=== PATIENT | male | born 1945 | race Caucasian/White ===

== ENCOUNTER → 2018-07-05 09:46 | Outpatient (CLI) | payer MEDICARE, SELFPAY ==
[2018-07-05 10:45] LABS: Creatinine Urine Random 87.4 mg/dL
[2018-07-05 10:49] LABS: Microalbumi Creatinin Ratio Ur 6.8 ug/mg CR (<30); Microalbumin Urine Random < 0.6 mg/dL (0-1.6)
[2018-07-05 10:52] LABS: Add Manual Diff / Slide Review NO; Basophils Percent Auto 0.8 % (0-2); Eosinophils Percent Auto 3.9 % (2-4); Hematocrit 42.8 % (41-53); Hemoglobin 14.3 g/dL (13.5-17.5); Lymphocytes Percent Auto 9.6 % (25-40); Mean Corpuscular HGB Conc 33.4 % (30-36); Mean Corpuscular Hemoglobin 31.8 PG (26-34); Mean Corpuscular Volume 95.3 fL (80-100); Monocytes Percent Auto 9.1 % (3-14); Neutrophils Absolute Auto 6800 /uL (3000-5900); Neutrophils Percent Auto 76.6 % (50-75); Platelet Count 252 X10^3/uL (150-400); Red Cell Distribution Width 14.3 % (11.6-14.8); White Blood Cell Count 8.8 X10^3/uL (4.5-11.0)
[2018-07-05 11:12] LABS: Alanine Aminotransferase 31 IU/L (21-72); Albumin 4.3 g/dL (3.5-5.0); Albumin Globulin Ratio 1.6 (1.0-2.8); Alkaline Phosphatase 66 U/L (38-126); Aspartate Aminotransferase 36 IU/L (17-59); BUN Creatinine Ratio 15.8 (6-22); Bilirubin Total 0.8 mg/dL (0.2-1.3); Blood Urea Nitrogen 19 mg/dL (9-20); Calcium 9.9 mg/dL (8.4-10.2); Carbon Dioxide 35 mmol/L (22-32); Chloride 95 mmol/L (98-107); Estimated Glomerular Filt Rate 59.7 mL/min (>60); Globulin 2.7 g/dL (1.7-4.1); Glucose 151 mg/dL (80-110); HEMOLYSIS < 15 (0-50); Potassium 4.9 mmol/L (3.4-5.1); Sodium 138 mmol/L (137-145)
[2018-07-05 11:18] LABS: Hemoglobin A1C% w Est Avg Glu 8.3 % (4.0-6.0)
[2018-07-05 11:36] LABS: Thyroid Stimulating Hormone 0.26 uIU/mL (0.47-4.68)
== END ==
PROVIDERS: PCP Internal Medicine Endocrinology, Diabetes & Metabolism; Visit Provider Internal Medicine Endocrinology, Diabetes & Metabolism
DX: E11.9 Type 2 diabetes mellitus without complications (principal); E29.1 Testicular hypofunction
CPT/HCPCS: 36415; 80053; 82043; 82570; 83036; 84153; 84403; 84443; 85025

== ENCOUNTER → 2018-08-10 08:46 | Outpatient (CLI) | payer MEDICARE, SELFPAY ==
[2018-08-10 10:03] LABS: Cholesterol 189 mg/dL (140-199); HDL Cholesterol 87 mg/dL (40-60); LDL Cholesterol Calculated 80 mg/dL (<100); Triglycerides 109 mg/dL (35-150)
[2018-08-10 10:16] LABS: LDL Cholesterol Direct 70 mg/dL (<100)
== END ==
PROVIDERS: Family Provider Internal Medicine Endocrinology, Diabetes & Metabolism; PCP Internal Medicine Endocrinology, Diabetes & Metabolism; Visit Provider Internal Medicine
DX: Z00.00 Encounter for general adult medical examination without abnormal findings (principal); E10.9 Type 1 diabetes mellitus without complications
CPT/HCPCS: 36415; 80061; 83721

== ENCOUNTER → 2018-12-29 08:42 | Outpatient (CLI) | payer MEDICARE, SELFPAY ==
[2018-12-29 10:19] LABS: Alanine Aminotransferase 25 IU/L (21-72); Albumin 4.3 g/dL (3.5-5.0); Albumin Globulin Ratio 1.5 (1.0-2.8); Alkaline Phosphatase 54 U/L (38-126); Aspartate Aminotransferase 29 IU/L (17-59); BUN Creatinine Ratio 17.5 (6-22); Bilirubin Total 0.8 mg/dL (0.2-1.3); Blood Urea Nitrogen 21 mg/dL (9-20); Calcium 9.5 mg/dL (8.4-10.2); Carbon Dioxide 34 mmol/L (22-32); Chloride 95 mmol/L (98-107); Cholesterol 185 mg/dL (140-199); Estimated Glomerular Filt Rate 59.7 mL/min (>60); Globulin 2.9 g/dL (1.7-4.1); Glucose 145 mg/dL (80-110); HDL Cholesterol 80 mg/dL (40-60); HEMOLYSIS < 15 (0-50); LDL Cholesterol Calculated 89 mg/dL (<100); Potassium 4.2 mmol/L (3.4-5.1); Sodium 137 mmol/L (137-145); Total Protein 7.2 g/dL (6.3-8.2); Triglycerides 81 mg/dL (35-150)
[2018-12-29 10:47] LABS: Thyroid Stimulating Hormone 0.14 uIU/mL (0.47-4.68)
[2018-12-29 11:00] LABS: Hemoglobin A1C% w Est Avg Glu 8.5 % (4.0-6.0)
== END ==
PROVIDERS: PCP Internal Medicine Endocrinology, Diabetes & Metabolism
DX: E10.9 Type 1 diabetes mellitus without complications (principal)
CPT/HCPCS: 36415; 80053; 80061; 83036; 84443

== ENCOUNTER → 2019-03-23 08:40 | Outpatient (CLI) | payer MEDICARE, SELFPAY ==
--- NOTE | 2019-03-23 | DI.MRI.S_ITS ---
PROCEDURE: MR BRAIN (PITUITARY) WWO CON INDICATIONS: PITUITARY MACROADENOMA TECHNIQUE: Noncontrast sagittal and axial FLAIR, axial gradient echo, axial diffusion and ADC through the brain. Thin-slice sagittal and coronal T1 spin echo, coronal T2 fast spin echo through the pituitary. After the administration contrast, optional dynamic coronal T1 spin echo, thin-slice coronal and sagittal T1 spin echo images through the pituitary fossa; axial T1 spin echo with fat saturation through the brain. COMPARISON: No prior relevant studies are available for review at the time of this dictation. FINDINGS: Image quality: Excellent. Pituitary Gland: There is a heterogeneous mass, with heterogeneous enhancement seen along the right aspect of the sellar and suprasellar region, with mass effect upon the cavernous sinus. This mass measures approximately 1.6 cm craniocaudal by 1.3 cm transverse by 2.3 cm AP. The pituitary stalk is deviated to the left. The normal pituitary gland bright spot is not definitely seen. No mass effect seen upon the optic chiasm or the ventral forebrain. CSF Spaces: Ventricles are normal in size and shape. Basal cisterns are patent. No extra-axial fluid collections. Brain: No intracranial bleeds. No additional abnormal intracranial enhancement. Ibrahim-white matter interface is intact. Diffusion weighted images demonstrate no acute ischemic insults. Brainstem is normal. Normal intravascular flow voids are present. Skull and face: Calvarial marrow is normal in signal. Orbits appear normal. Sinuses: Sinuses and mastoids are clear. 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 There is mass effect upon the cavernous sinus, yet not upon the ventral forebrain or the optic chiasm. Dictated by: Ezra Mcnamara M.D. on 03/23/2019 at 9:36 Approved by: Ezra Mcnamara M.D. on 03/23/2019 at 9:42
== END ==
PROVIDERS: Family Provider Internal Medicine Endocrinology, Diabetes & Metabolism; PCP Internal Medicine Endocrinology, Diabetes & Metabolism
DX: D35.2 Benign neoplasm of pituitary gland (principal)
CPT/HCPCS: 70553; A9579

== ENCOUNTER → 2019-06-11 10:58 | Outpatient (CLI) | payer MEDICARE, SELFPAY ==
--- NOTE | 2019-06-11 11:00 | DI.RAD.S_ITS ---
PROCEDURE: XR HAND RT MIN 3V INDICATIONS: right hand pain TECHNIQUE: 3 views of the hand(s) acquired. COMPARISON: None. FINDINGS: Bones: No fractures or dislocations. Carpal bones are normally aligned. No suspicious bony lesions. 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 Severe degenerative arthritis at the thumb IP joint. Severe degenerative arthritis at the third DIP joint and fifth DIP joint. Soft tissues: No suspicious soft tissue calcifications. IMPRESSION: No evidence acute bony abnormality of the right hand. Degenerative arthritis as described above. Dictated by: Jean Yin M.D. on 06/11/2019 at 11:21 Approved by: Jean Yin M.D. on 06/11/2019 at 11:22
== END ==
PROVIDERS: PCP Internal Medicine Endocrinology, Diabetes & Metabolism; Visit Provider Physician Assistant
DX: M79.641 Pain in right hand (principal); M19.041 Primary osteoarthritis, right hand
CPT/HCPCS: 73130

== ENCOUNTER → 2020-03-24 14:58 | Outpatient (CLI) | payer MEDICARE, SELFPAY ==
[2020-03-24 17:40] LABS: Blood Urea Nitrogen 21 mg/dL (9-20); Calcium 9.1 mg/dL (8.4-10.2); Carbon Dioxide 29 mmol/L (22-32); Chloride 97 mmol/L (98-107); Estimated Glomerular Filt Rate > 60.0 mL/min (>60); Glucose 190 mg/dL (80-110); HEMOLYSIS < 15 (0-50); Potassium 4.2 mmol/L (3.4-5.1); Sodium 134 mmol/L (137-145)
[2020-03-24 17:59] LABS: Free T4, Direct Thyroxine 0.98 ng/dL (0.78-2.19)
[2020-03-24 18:13] LABS: Testosterone 186 ng/dL (71.8-623); Thyroid Stimulating Hormone 0.08 uIU/mL (0.47-4.68)
== END ==
PROVIDERS: PCP Internal Medicine Endocrinology, Diabetes & Metabolism; Referring Provider Internal Medicine Endocrinology, Diabetes & Metabolism; Visit Provider Internal Medicine Endocrinology, Diabetes & Metabolism
DX: E03.9 Hypothyroidism, unspecified (principal); E29.1 Testicular hypofunction
CPT/HCPCS: 36415; 80048; 84403; 84439; 84443

== ENCOUNTER → 2020-04-28 11:34 | Outpatient (CLI) | payer MEDICARE, SELFPAY ==
[2020-04-28 13:14] LABS: Add Manual Diff / Slide Review NO; Basophils Absolute Auto 100 /uL (0-100); Basophils Percent Auto 0.7 % (0-2); Eosinophils Absolute Auto 300 /uL (0-450); Eosinophils Percent Auto 3.6 % (2-4); Hematocrit 40.8 % (41-53); Lymphocytes Absolute Auto 600 /uL (1100-4500); Lymphocytes Percent Auto 7.9 % (25-40); Mean Corpuscular HGB Conc 34.4 % (30-36); Mean Corpuscular Hemoglobin 32.5 PG (26-34); Mean Corpuscular Volume 94.6 fL (80-100); Monocytes Absolute Auto 700 /uL (0-900); Monocytes Percent Auto 9.6 % (3-14); Neutrophils Absolute Auto 5500 /uL (1500-7000); Neutrophils Percent Auto 78.2 % (50-75); Platelet Count 251 X10^3/uL (150-400); Red Blood Cell Count 4.31 X10^6/uL (4.5-5.9); Red Cell Distribution Width 13.8 % (11.6-14.8)
[2020-04-28 14:25] LABS: BUN Creatinine Ratio 19.3 (6-22); Blood Urea Nitrogen 23 mg/dL (9-20); Carbon Dioxide 34 mmol/L (22-32); Chloride 97 mmol/L (98-107); Estimated Glomerular Filt Rate 59.9 mL/min (>60); Glucose 138 mg/dL (80-110); HEMOLYSIS < 15 (0-50); Potassium 4.3 mmol/L (3.4-5.1); Sodium 137 mmol/L (137-145)
[2020-04-28 14:39] LABS: Free T4, Direct Thyroxine 1.14 ng/dL (0.78-2.19)
[2020-04-28 14:54] LABS: Prostate Specific Antigen Scrn 0.602 ng/mL (0.1-4.0)
[2020-04-28 14:57] LABS: Testosterone 130 ng/dL (71.8-623)
== END ==
PROVIDERS: PCP Internal Medicine Endocrinology, Diabetes & Metabolism; Referring Provider Internal Medicine Endocrinology, Diabetes & Metabolism; Visit Provider Internal Medicine Endocrinology, Diabetes & Metabolism
DX: E10.9 Type 1 diabetes mellitus without complications (principal); Z12.5 Encounter for screening for malignant neoplasm of prostate
CPT/HCPCS: 36415; 80048; 83036; 84403; 84439; 84443; 85025; G0103

== ENCOUNTER 2020-05-16 14:42 | Emergency (ER) | payer MEDICARE, SELFPAY ==
[2020-05-16 14:46] VITALS: PULSE 77; RESP 16; O2SAT 98; BMI 23.0
--- NOTE | 2020-05-16 15:02 | DI.RAD.S_ITS ---
PROCEDURE: XR ABDOMEN MIN 2V INDICATIONS: constipation TECHNIQUE: 2 views of the abdomen were acquired. COMPARISON: None. FINDINGS: Surgical changes and devices: None. Bowel: No pneumoperitoneum. The bowel gas pattern is normal. There is a moderate amount of stool seen within the colon. Soft tissues: No masses; visualized solid organ contours appear normal in size. No suspicious abdominal calcifications. Bones: No suspicious bony abnormalities. Age-appropriate bony degenerative changes are seen. Mild dextroconvex scoliotic curvature is seen. IMPRESSION: There is a moderate amount of stool seen within the colon, which is consistent with the given clinical history of constipation. Dictated by: Ezra Mcnamara M.D. on 05/16/2020 at 14:48 Approved by: Ezra Mcnamara M.D. on 05/16/2020 at 14:48
[2020-05-16 17:42] VITALS: BP 182/87; PULSE 61; RESP 18; TEMP 36.8; O2SAT 100
[2020-05-16 18:42] LABS: Alanine Aminotransferase 21 IU/L (<50); Albumin 4.3 g/dL (3.5-5.0); Albumin Globulin Ratio 1.5 (1.0-2.8); Alkaline Phosphatase 107 U/L (38-126); Aspartate Aminotransferase 54 IU/L (17-59); BUN Creatinine Ratio 19.5 (6-22); Bilirubin Total 0.6 mg/dL (0.2-1.3); Blood Urea Nitrogen 22 mg/dL (9-20); Calcium 9.3 mg/dL (8.4-10.2); Carbon Dioxide 32 mmol/L (22-32); Chloride 94 mmol/L (98-107); Estimated Glomerular Filt Rate > 60.0 mL/min (>60); Globulin 2.9 g/dL (1.7-4.1); Glucose 208 mg/dL (80-110); HEMOLYSIS 18 (0-50); Lipase 224 U/L (23-300); Potassium 4.9 mmol/L (3.4-5.1); Sodium 131 mmol/L (137-145); Total Protein 7.2 g/dL (6.3-8.2)
[2020-05-16 18:50] LABS: Add Manual Diff / Slide Review NO; Basophils Absolute Auto 0 /uL (0-100); Basophils Percent Auto 0.6 % (0-2); Eosinophils Absolute Auto 100 /uL (0-450); Eosinophils Percent Auto 1.5 % (2-4); Hematocrit 41.6 % (41-53); Hemoglobin 14.1 g/dL (13.5-17.5); Lymphocytes Absolute Auto 900 /uL (1100-4500); Lymphocytes Percent Auto 12.4 % (25-40); Mean Corpuscular Hemoglobin 32.1 PG (26-34); Mean Corpuscular Volume 94.4 fL (80-100); Monocytes Absolute Auto 600 /uL (0-900); Neutrophils Absolute Auto 5700 /uL (1500-7000); Neutrophils Percent Auto 77.5 % (50-75); Platelet Count 297 X10^3/uL (150-400); Red Cell Distribution Width 13.5 % (11.6-14.8); White Blood Cell Count 7.4 X10^3/uL (4.5-11.0)
[2020-05-16 18:56] VITALS: BP 191/87; PULSE 61; RESP 14; O2SAT 97
--- NOTE | 2020-05-16 19:29 | ED.ABDPAIN ---
HPI - Abdominal Pain <LAURO Stephens - Last Filed: 05/16/20 19:34> General Chief Complaint: Abdominal Pain Stated Complaint: 10 DAYS CONSTIPATION Time Seen by Provider: 05/16/20 18:25 Source: patient Mode of arrival: Ambulatory Limitations: no limitations History of Present Illness HPI narrative: The patient is a 75-year-old male nonsmoker with history of type 1 diabetes and hyponatremia who presents with his for chief complaint of no bowel movement for the past 10 days. He states he fell 2 weeks ago when he tripped and has some lower back pain. He has tried multiple laxatives, including magnesium citrate last night and this morning. Since his fall, he denies any incontinence bowel, incontinence of bladder or numbness in his groin. He states he has to be cautious with the amount of liquid that he drinks because of his hyponatremia. Related Data Home Medications Medication Instructions Recorded Confirmed MULTIVITAMIN (Multivitamin 1 cap PO EVERY DAY #0 12/11/06 06/11/19 -) TESTOSTERONE ENANTHATE 0.5 cc IM EVERY 2 WKS #0 11/01/12 06/11/19 (DELATESTRYL) VITAMIN D (Vitamin D3) 1,000 unit PO QDAY #0 11/01/12 06/11/19 insulin glargine [Lantus U-100 0 unit SQ BID #0 ml 11/01/12 06/11/19 Insulin] insulin lispro [Humalog U-100 #0 11/01/12 06/11/19 Insulin] lamotrigine [Lamictal] 200 mg PO BID #0 11/01/12 06/11/19 LEVOTHYROXINE SODIUM 25 mcg PO QDAY #0 06/11/19 06/11/19 atorvastatin 20 mg tablet 20 mg PO DAILY 06/11/19 06/11/19 Allergies Allergy/AdvReac Type Severity Reaction Status Date / Time No Known Drug Allergies Allergy Verified 05/16/20 14:46 Review of Systems <LAURO Stephens - Last Filed: 05/16/20 19:34> Review of Systems Narrative: GENERAL: Denies chills, fatigue, malaise, fever, sweats. HEENT: Denies sinus pain, ear pain, sore throat, difficulty swallowing, dizziness. RESPIRATORY: Denies dyspnea, cough, wheezing, hemoptysis, sputum. CARDIOVASCULAR: Denies chest pain, palpitations, orthopnea, edema, GASTROINTESTINAL: See HPI : Denies dysuria, frequency, incontinence, hematuria, urinary retention. MUSCULOSKELETAL: denies weakness, joint pain, or bony pain SKIN: Denies rash, skin lesions, or other NEUROLOGIC: Denies weakness, headache, numbness, change in speech, confusion, seizures, incoordination. PSYCHIATRIC: No concerning psychosocial issues. 12 point review of systems is negative except for those stated above Patient History <LAURO Stephens - Last Filed: 05/16/20 19:34> Medical History (Updated 05/16/20 @ 19:22 by LAURO Stephens) Acute low back pain (Acute) Exam <LAURO Stephens - Last Filed: 05/16/20 19:34> Narrative Exam Narrative: GENERAL: This is a well-nourished, well-developed patient, no acute distress HEAD: Atraumatic. Normocephalic. No temporal or scalp tenderness. EYES: Pupils equal round and reactive. Extraocular motions intact. No scleral icterus. No injection or drainage. ENT: Nose without bleeding, purulent drainage or septal hematoma.. Airway patent. NECK: Trachea midline. No JVD or lymphadenopathy. Supple, nontender, no meningeal signs. CARDIOVASCULAR: Regular rate and rhythm RESPIRATORY: Clear to auscultation. Breath sounds equal bilaterally. No wheezes, rales, or rhonchi. No cough. No increased respiratory effort. No accessory muscle use. GASTROINTESTINAL: Abdomen soft, non-tender, nondistended. No hepato-splenomegaly, or palpable masses. No guarding. EXTREMITIES: No clubbing, cyanosis, or edema. No joint tenderness, effusion, or edema noted. BACK: Nontender without deformity or crepitance. No flank tenderness. No pain to CT or L-spine palpation. NEURO: AOx3. Stable gait. Sensation intact bilateral lower extremities. No gross cranial nerve deficit. SKIN: No rash or erythema. Initial Vital Signs Initial Vital Signs: Vital Signs Pulse Rate 77 05/16/20 14:46 Respiratory Rate 16 05/16/20 14:46 Pulse Oximetry 98 05/16/20 14:46 <Roderick Carter DO - Last Filed: 05/17/20 05:23> Initial Vital Signs Initial Vital Signs: Vital Signs Pulse Rate 77 05/16/20 14:46 Respiratory Rate 16 05/16/20 14:46 Pulse Oximetry 98 05/16/20 14:46 Scores <BOBY Stephens - Last Filed: 05/16/20 19:34> GCS Parker coma scale eye opening: Spontaneous Parker coma scale verbal response: Orientated Parker coma scale motor response: Obey commands [place] coma scale total score: 15 Course <BOBY Stephens - Last Filed: 05/16/20 19:34> Orders Ordered: ED Orders 05/16/20 15:02 XR abdomen min 2V Stat 05/16/20 17:30 Complete Blood Count AUTO DIFF Stat Comprehensive Metabolic Panel Stat Lipase Stat Vital Signs Vital signs: Vital Signs - 8 hr 05/16/20 14:46 05/16/20 17:42 05/16/20 18:56 Temperature 98.3 F Pulse Rate 77 61 61 Respiratory Rate 16 18 14 Blood Pressure [Left Arm] 182/87 H 191/87 H Pulse Oximetry 98 100 97 <Roderick Carter DO - Last Filed: 05/17/20 05:23> Orders Ordered: ED Orders 05/16/20 15:02 XR abdomen min 2V Stat 05/16/20 17:30 Complete Blood Count AUTO DIFF Stat Comprehensive Metabolic Panel Stat Lipase Stat Vital Signs Vital signs: Vital Signs - 8 hr 05/16/20 14:46 05/16/20 17:42 05/16/20 18:56 Temperature 98.3 F Pulse Rate 77 61 61 Respiratory Rate 16 18 14 Blood Pressure [Left Arm] 182/87 H 191/87 H Pulse Oximetry 98 100 97 MDM - Abdominal Pain <BOBY Stephens - Last Filed: 05/16/20 19:34> Lab Data Attestation: I reviewed the patient's lab results. Result diagrams: 05/16/20 17:30 05/16/20 17:30 Labs: Lab Results 05/16/20 05/16/20 Range/Units 17:30 17:30 WBC 7.4 (4.5-11.0) X10^3/uL RBC 4.40 L (4.5-5.9) X10^6/uL Hgb 14.1 (13.5-17.5) g/dL Hct 41.6 (41-53) % MCV 94.4 (80-100) fL MCH 32.1 (26-34) PG MCHC 34.0 (30-36) % RDW 13.5 (11.6-14.8) % Plt Count 297 (150-400) X10^3/uL Neut % (Auto) 77.5 H (50-75) % Lymph % (Auto) 12.4 L (25-40) % [place] % (Auto) 8.0 (3-14) % Eos % (Auto) 1.5 L (2-4) % Baso % (Auto) 0.6 (0-2) % Neut # (Auto) 5700 (7886-9205) /uL Lymph # (Auto) 900 L (5475-9909) /uL [place] # (Auto) 600 (0-900) /uL Eos # (Auto) 100 (0-450) /uL Baso # (Auto) 0 (0-100) /uL Sodium 131 L (137-145) mmol/L Potassium 4.9 (3.4-5.1) mmol/L Chloride 94 L (98-107) mmol/L Carbon Dioxide 32 (22-32) mmol/L BUN 22 H (9-20) mg/dL Creatinine 1.13 (0.66-1.25) mg/dL Estimated GFR > 60.0 (>60) mL/min BUN/Creatinine Ratio 19.5 (6-22) Glucose 208 H (80-110) mg/dL Calcium 9.3 (8.4-10.2) mg/dL Total Bilirubin 0.6 (0.2-1.3) mg/dL AST 54 (17-59) IU/L ALT 21 (<50) IU/L Alkaline Phosphatase 107 (38-126) U/L Total Protein 7.2 (6.3-8.2) g/dL Albumin 4.3 (3.5-5.0) g/dL Globulin 2.9 (1.7-4.1) g/dL Albumin/Globulin Ratio 1.5 (1.0-2.8) Lipase 224 (23-300) U/L Point of care testing: Urine Dip Bedside Urine Glucose Negative Bedside Urine Bilirubin - Negative Bedside Urine Ketone - Negative Urine Specific [place] 1.010 Bedside Urine Occult Blood - Negative Bedside Urine pH 7.5 Bedside Urine Protein - Negative Bedside Urine Urobilinogen - Negative Bedside Urine Nitrite - Negative Bedside Urine Leukocytes - Negative Esterase Imaging Data Abdominal x-ray: Radiologist's Impression: [address] [place] [id number] XRay Report Signed Patient: Javi Flores RMR#: [id number] : 7Acct:[id number] Age/Sex: 75 / MDate of Service: 05/16/20 Loc: ED Accession Number: [id number] Procedure: XR abdomen min 2V Ordering Provider: Javi Sherwood MD PROCEDURE: XR ABDOMEN MIN 2V INDICATIONS: constipation TECHNIQUE: 2 views of the abdomen were acquired. COMPARISON: None. FINDINGS: Surgical changes and devices: None. Bowel: No pneumoperitoneum. The bowel gas pattern is normal. There is a moderate amount of stool seen within the colon. Soft tissues: No masses; visualized solid organ contours appear normal in size. No suspicious abdominal calcifications. Bones: No suspicious bony abnormalities. Age-appropriate bony degenerative changes are seen. Mild dextroconvex scoliotic curvature is seen. IMPRESSION: There is a moderate amount of stool seen within the colon, which is consistent with the given clinical history of constipation. Dictated by: Ezra Mcnamara M.D. on 05/16/2020 at 14:48 Approved by: Ezra Mcnamara M.D. on 05/16/2020 at 14:48 [facility] Narrative Medical decision making narrative: The patient is a 75-year-old male who presents with a chief complaint of no bowel movement for the past 10 days. Appears nontoxic, is not nauseous or vomiting. He has 4 bowel movements in the emergency department today. Lab work is grossly normal for the patient, sodium is 131, but that appears to be normal for him and he has no hyponatremia symptoms. I discussed at length the importance of following up with primary care provider in the next few days, coming back to the emergency department for any acute concerns. The patient declined any imaging of his back today, but we discussed coming back to the emergency department for any incontinence bowel, incontinence of bladder or saddle anesthesia. Patient have no questions or concerns upon discharge and state understanding of return precautions and follow-up care. <Roderick Carter DO - Last Filed: 05/17/20 05:23> Lab Data Labs: Lab Results 05/16/20 05/16/20 Range/Units 17:30 17:30 WBC 7.4 (4.5-11.0) X10^3/uL RBC 4.40 L (4.5-5.9) X10^6/uL Hgb 14.1 (13.5-17.5) g/dL Hct 41.6 (41-53) % MCV 94.4 (80-100) fL MCH 32.1 (26-34) PG MCHC 34.0 (30-36) % RDW 13.5 (11.6-14.8) % Plt Count 297 (150-400) X10^3/uL Neut % (Auto) 77.5 H (50-75) % Lymph % (Auto) 12.4 L (25-40) % [place] % (Auto) 8.0 (3-14) % Eos % (Auto) 1.5 L (2-4) % Baso % (Auto) 0.6 (0-2) % Neut # (Auto) 5700 (8034-5559) /uL Lymph # (Auto) 900 L (4897-9276) /uL [place] # (Auto) 600 (0-900) /uL Eos # (Auto) 100 (0-450) /uL Baso # (Auto) 0 (0-100) /uL Sodium 131 L (137-145) mmol/L Potassium 4.9 (3.4-5.1) mmol/L Chloride 94 L (98-107) mmol/L Carbon Dioxide 32 (22-32) mmol/L BUN 22 H (9-20) mg/dL Creatinine 1.13 (0.66-1.25) mg/dL Estimated GFR > 60.0 (>60) mL/min BUN/Creatinine Ratio 19.5 (6-22) Glucose 208 H (80-110) mg/dL Calcium 9.3 (8.4-10.2) mg/dL Total Bilirubin 0.6 (0.2-1.3) mg/dL AST 54 (17-59) IU/L ALT 21 (<50) IU/L Alkaline Phosphatase 107 (38-126) U/L Total Protein 7.2 (6.3-8.2) g/dL Albumin 4.3 (3.5-5.0) g/dL Globulin 2.9 (1.7-4.1) g/dL Albumin/Globulin Ratio 1.5 (1.0-2.8) Lipase 224 (23-300) U/L Point of care testing: Urine Dip Bedside Urine Glucose Negative Bedside Urine Bilirubin - Negative Bedside Urine Ketone - Negative Urine Specific [employer] 1.010 Bedside Urine Occult Blood - Negative Bedside Urine pH 7.5 Bedside Urine Protein - Negative Bedside Urine Urobilinogen - Negative Bedside Urine Nitrite - Negative Bedside Urine Leukocytes - Negative Esterase Discharge Plan Departure Patient Disposition: Home Clinical Impression: Hyponatremia Constipation Qualifiers: Constipation type: unspecified constipation type Qualified Code(s): K59.00 - Constipation, unspecified Discharge Date/Time: 05/16/20 19:36 Instructions: DI for Constipation Activity Restrictions/Additional Instructions: Thank you for trusting us with your care today Your sodium level today is 131 You came in today for constipation, and had 4 bowel movements in the emergency department today Please follow-up with primary care provider. Please be sure to hold off on any laxatives for the time being. Please follow-up with primary care provider in the next few days. Please come back to the emergency department for any acute concerns Prescriptions: No Action atorvastatin 20 mg tablet 20 mg PO DAILY RF: 0 MULTIVITAMIN (Multivitamin -) 1 cap PO EVERY DAY Qty: 0 RF: 0 VITAMIN D (Vitamin D3) 1,000 unit PO QDAY Qty: 0 RF: 0 lamotrigine [Lamictal] 200 MG tablet 200 mg PO BID Qty: 0 RF: 0 insulin glargine [Lantus U-100 Insulin] 100 UNIT/1 ML solution 0 unit SQ BID Qty: 0 RF: 0 insulin lispro [Humalog U-100 Insulin] 100 UNIT/1 ML cartridge Qty: 0 RF: 0 TESTOSTERONE ENANTHATE (DELATESTRYL) 0.5 cc IM EVERY 2 WKS Qty: 0 RF: 0 LEVOTHYROXINE SODIUM 25 mcg PO QDAY Qty: 0 RF: 0 Referrals: Lady Dickerson MD [Primary Care Provider] - Radha Perez MD [Physician] - <Roderick Carter DO - Last Filed: 05/17/20 05:23> Cosign ED Attending Cosignature Attestation: I was immediately available in the department for consultation. This documentation has been reviewed and I agree with assessment and plan. Supervised by Roderick Carter, DO
== END 2020-05-16 19:36 | disposition home or self-care (01) ==
PROVIDERS: Emergency Medicine; Emergency Provider Nurse Practitioner Family; PCP Internal Medicine Endocrinology, Diabetes & Metabolism
DX: K59.00 Constipation, unspecified (principal); E87.1 Hypo-osmolality and hyponatremia
CPT/HCPCS: 36415; 74019; 80053; 81003; 83690; 85025; 99284

== ENCOUNTER → 2020-05-19 14:14 | Outpatient (CLI) | payer MEDICARE, SELFPAY ==
--- NOTE | 2020-05-19 14:16 | DI.RAD.S_ITS ---
PROCEDURE: XR LUMBAR SPINE MIN 4V INDICATIONS: LOW BACK PAIN TECHNIQUE: 4 views of the lumbar spine were acquired. COMPARISON: None. FINDINGS: Bones: 5 nonrib-bearing vertebrae are present. There is normal bony alignment. No acute vertebral body compression fractures. Old mild to moderate L1 compression. No suspicious bony lesions. Soft tissues: Overlying bowel gas pattern is normal. No suspicious soft tissue calcifications. Oblique images: No pars defects. Lower lumbar facet arthropathy. IMPRESSION: Old L1 compression fracture. Lower lumbar facet arthropathy. No evidence acute bony abnormality of the lumbar spine. If clinical suspicion and/or symptoms persist, further assessment with repeat plain films, or advanced imaging (e.g., CT, MRI, or bone scan) may be helpful for further assessment. Dictated by: Jean Yin M.D. on 05/19/2020 at 15:11 Approved by: Jean Yin M.D. on 05/19/2020 at 15:12
== END ==
PROVIDERS: PCP Internal Medicine Endocrinology, Diabetes & Metabolism; Referring Provider Physical Medicine & Rehabilitation; Visit Provider Physical Medicine & Rehabilitation
DX: M54.5 Low back pain (principal); M47.816 Spondylosis without myelopathy or radiculopathy, lumbar region; M43.06 Spondylolysis, lumbar region; S32.010A Wedge compression fracture of first lumbar vertebra, initial encounter for closed fracture; K59.00 Constipation, unspecified
CPT/HCPCS: 72110; 99213

== ENCOUNTER → 2020-08-01 13:16 | Outpatient (CLI) | payer MEDICARE, SELFPAY ==
[2020-08-01 14:17] LABS: Hemoglobin A1C% w Est Avg Glu 8.1 % (4.0-6.0)
[2020-08-01 15:15] LABS: Free T4, Direct Thyroxine 1.24 ng/dL (0.78-2.19)
[2020-08-01 15:28] LABS: Thyroid Stimulating Hormone 0.067 uIU/mL (0.47-4.68)
[2020-08-01 15:29] LABS: Prostate Specific Antigen Scrn 0.842 ng/mL (0.1-4.0)
[2020-08-01 15:32] LABS: Testosterone 40.5 ng/dL (71.8-623)
== END ==
PROVIDERS: PCP Internal Medicine Endocrinology, Diabetes & Metabolism; Referring Provider Internal Medicine Endocrinology, Diabetes & Metabolism; Visit Provider Internal Medicine Endocrinology, Diabetes & Metabolism
DX: E10.9 Type 1 diabetes mellitus without complications (principal); Z12.5 Encounter for screening for malignant neoplasm of prostate
CPT/HCPCS: 36415; 83036; 84403; 84439; 84443; G0103

== ENCOUNTER → 2020-08-27 16:39 | Outpatient (CLI) | payer MEDICARE, SELFPAY ==
[2020-08-27 18:06] LABS: Hemoglobin A1C% w Est Avg Glu 8.4 % (4.0-6.0)
[2020-08-27 18:34] LABS: Free T4, Direct Thyroxine 1.65 ng/dL (0.78-2.19)
[2020-08-27 18:48] LABS: Thyroid Stimulating Hormone 0.021 uIU/mL (0.47-4.68)
== END ==
PROVIDERS: PCP Internal Medicine Endocrinology, Diabetes & Metabolism; Referring Provider Internal Medicine Endocrinology, Diabetes & Metabolism; Visit Provider Internal Medicine Endocrinology, Diabetes & Metabolism
DX: E03.9 Hypothyroidism, unspecified (principal); E10.65 Type 1 diabetes mellitus with hyperglycemia
CPT/HCPCS: 36415; 83036; 84439; 84443

== ENCOUNTER → 2020-10-31 10:06 | Outpatient (CLI) | payer MEDICARE, SELFPAY ==
[2020-10-31 12:11] LABS: Add Manual Diff / Slide Review NO; Basophils Absolute Auto 100 /uL (0-100); Eosinophils Absolute Auto 600 /uL (0-450); Eosinophils Percent Auto 7.9 % (2-4); Hematocrit 39.7 % (41-53); Hemoglobin 13.2 g/dL (13.5-17.5); Lymphocytes Absolute Auto 900 /uL (1100-4500); Lymphocytes Percent Auto 12.1 % (25-40); Mean Corpuscular HGB Conc 33.1 % (30-36); Mean Corpuscular Hemoglobin 30.8 PG (26-34); Monocytes Absolute Auto 700 /uL (0-900); Monocytes Percent Auto 8.8 % (3-14); Neutrophils Absolute Auto 5300 /uL (1500-7000); Neutrophils Percent Auto 70.2 % (50-75); Platelet Count 263 X10^3/uL (150-400); Red Blood Cell Count 4.27 X10^6/uL (4.5-5.9); Red Cell Distribution Width 13.4 % (11.6-14.8); White Blood Cell Count 7.6 X10^3/uL (4.5-11.0)
[2020-10-31 13:02] LABS: Free T4, Direct Thyroxine 1.76 ng/dL (0.78-2.19)
[2020-10-31 13:06] LABS: Prostate Specific Antigen Scrn 0.717 ng/mL (0.1-4.0)
[2020-10-31 13:08] LABS: Testosterone 346 ng/dL (71.8-623)
[2020-10-31 13:29] LABS: Thyroid Stimulating Hormone < 0.015 uIU/mL (0.47-4.68)
== END ==
PROVIDERS: PCP Family Medicine; Referring Provider Internal Medicine Endocrinology, Diabetes & Metabolism; Visit Provider Internal Medicine Endocrinology, Diabetes & Metabolism
DX: E10.9 Type 1 diabetes mellitus without complications (principal); Z12.5 Encounter for screening for malignant neoplasm of prostate
CPT/HCPCS: 36415; 83036; 84403; 84439; 84443; 85025; G0103

== ENCOUNTER → 2020-12-05 09:29 | Outpatient (CLI) | payer MEDICARE, SELFPAY ==
[2020-12-05 11:21] LABS: COVID19 -Nasal RAPID Negative (Negative)
== END ==
PROVIDERS: PCP Family Medicine; Visit Provider Surgery
DX: Z01.812 Encounter for preprocedural laboratory examination (principal); Z20.822 Contact with and (suspected) exposure to COVID-19
CPT/HCPCS: 87635; C9803

== ENCOUNTER 2020-12-08 06:43 | Day surgery (SDC) | payer MEDICARE, SELFPAY ==
[2020-12-08] VITALS (10 sets, daily range): BP systolic 87–132; BP diastolic 44–76; PULSE 57–78; RESP 8–17; TEMP 36–37.1; O2SAT 96–98; BMI 22.4
--- NOTE | 2020-12-08 07:52 | PM.HP.1 ---
History of Present Illness History of Present Illness Date Patient Seen: 12/08/20 Time Patient Seen: 07:52 Chief complaint: SCREENING COLONOSCOPY Narrative: The patient presents for colorectal sreening. He had a previously normal colonoscopy 11 years ago. No personal or family history of colon cancer. On further history denies any recent gastrointestinal symptoms. No nausea, vomiting, abdominal pain, loss of appetite, unexplained weight loss, change in bowel habits, diarrhea, constipation, melena, hematochezia, or bright red blood per rectum. Patient History Medical History Acute low back pain Compression fracture of L1 lumbar vertebra DM type 1 (diabetes mellitus, type 1) Epilepsy Facet arthropathy, lumbar Hx of benign neoplasm of pituitary gland Hypothyroidism Lumbar pars defect Surgical History H/O shoulder replacement History of surgical removal of pituitary gland Family & Social History Family History Unknown No pertinent family history Social History: household members spouse Tobacco & Substance use: Smoking Status Never smoker alcohol intake current alcohol intake frequency 0-2 drinks per day Substance Use Type does not use Meds Home Medications and Allergies Home Medications Medication Instructions Recorded Confirmed Type MULTIVITAMIN (Multivitamin 1 cap PO EVERY DAY #0 12/11/06 12/08/20 History -) Humalog U-100 Insulin #0 11/01/12 05/19/20 History Lantus U-100 Insulin 0 unit SQ BID #0 ml 11/01/12 12/08/20 History TESTOSTERONE ENANTHATE 0.5 cc IM EVERY 2 WKS #0 11/01/12 12/08/20 History (DELATESTRYL) VITAMIN D (Vitamin D3) 1,000 unit PO QDAY #0 11/01/12 12/08/20 History LEVOTHYROXINE SODIUM 25 mcg PO QDAY #0 06/11/19 12/08/20 History atorvastatin 20 mg tablet 20 mg PO DAILY 06/11/19 12/08/20 History lamotrigine 200 mg tablet 350 mg PO DAILY #0 tab 05/19/20 12/08/20 History prednisone 1 mg tablet 4 mg PO DAILY tab 05/19/20 12/08/20 History sodium,potassium,mag sulfates 17.5 177 ml PO DAILY #354 ml 12/02/20 12/08/20 Rx gram-3.13 gram-1.6 gram oral soln Allergies Allergy/AdvReac Type Severity Reaction Status Date / Time No Known Drug Allergies Allergy Verified 12/08/20 07:20 Review of Systems Review of Systems Narrative: A 10 point review of systems is negative except as noted in the HPI Exam Narrative Exam Narrative: General-no acute distress, well nourished adult male HEENT-moist mucous membranes, no scleral icterus Neck-supple, no lymphadenopathy Chest- non labored respirations, clear to auscultation bilaterally Cardiac-regular rate no peripheral edema Abdomen-soft, nontender, non distended Extremities-warm, well perfused Neurological-alert and oriented, no focal deficits Assessment & Plan Assessment and plan (1) Screening for colon cancer: Status: Acute Assessment & Plan narrative: The patient requires colorectal screening and colonoscopy is recommended. Technical details were discussed. Risks, benefits, alternatives explained. Risks including but not limited to myocardial infarction, aspiration, bleeding, pain, missed lesion, incomplete examination, need for further radiographic studies, colonic perforation, and need for major abdominal surgery were discussed. All questions were answered to their satisfaction, and they are in agreement with this plan.
[2020-12-08] MEDS: LACTATED RINGERS 1,000 ML 200 ML IV (07:53)
[2020-12-08] MEDS: MIDAZOLAM 5 MG/5 ML VIAL IV (08:12)
[2020-12-08] MEDS: fentaNYL 250 MCG/5 ML INJ IV (08:12)
--- NOTE | 2020-12-08 08:24 | P.OP.ENDO_ITS ---
Operative Date/Time/Diagnoses Date of procedure: 12/08/20 Time of procedure: 08:24 Pre-op diagnosis: Screening colonoscopy Post-op diagnosis: same Procedure & Clinicians Study performed: Screening colonoscopy Same procedure as scheduled: Yes Indications: 75-year-old man last colonoscopy 11 years ago presents for routine screening Surgeon: Anibal Jones Procedure Notes Procedure in detail: Medications: Conscious sedation using 5mg IV midazolam and 150mcg IV of fentanyl The history and physical was performed/updated and the patient is ASA class is 2. The procedure was discussed in detail with the patient. Potential risks complications including infection, bleeding, missed diagnosis, perforation, need for surgery, and were explained. Their questions were answered and informed consent was obtained. Patient was brought to the procedure room and placed standard monitoring equipment. The patient's vital signs were monitored continuously throughout the entire procedure. Prior to starting time-out was performed. The patient was placed in the left lateral recumbent position. Procedural sedation was administered. Examination began with a thorough inspection of the perianal area there was no evidence of fissures, fistulae, external hemorrhoids or cutaneous malignancy. The colonoscopy scope was then placed into the anal canal and was advanced to the cecum, which was identified by the ileocecal valve, the appendic eal orifice and the confluence of the taenia. The scope was then slowly withdrawn examining colon thoroughly in all directions, irrigating it of any residual stool. Extensive sigmoid diverticulosis No masses or polyps The patient tolerated the procedure well. They will be discharged once criteria are met. The prep was of good/excellent quality. The withdrawl time was 7 minutes. The sedation time was 20 minutes. Specimen(s): none sent Complications: none Impression: Diverticulosis Post-procedure Recommendations: Colonscopy in 10 years Disposition: same day surgery
--- NOTE | 2020-12-08 08:52 | SUR.PHASEI ---
Aroused easily to voice, denies pain/nausea. HOB elevated, fluids given. BP lower than upon admit - asymptomatic.
--- NOTE | 2020-12-08 09:22 | SUR.PHASEII ---
Approx 0918 Patient was dressing; had declined any assistance. (He had denied dizziness or light-headedness at least twice prior to dressing). He lost his balance and fell, FIRE WARDEN was the first to his aid and saw him on his right hip/buttock area. Pt denied having any pain r/t fall (or otherwise). FIRE WARDEN stayed at bedside and assisted the patient with dressing. Transferred into wheelchair independently with FIRE WARDEN standby. Dr. Jones informed. is here in the waiting area; informed her of his fall. She stated I was afraid of that.' Asked her if he is often unsteady and she stated that he is and that she was concerned because he hadn't eaten in over 24 hours. (Blood glucose 118 prior to fall). 0922 Patient expressed appreciation for care upon discharge.
== END 2020-12-08 09:22 | disposition home or self-care (01) ==
PROVIDERS: PCP Family Medicine; Referring Provider Family Medicine; Visit Provider Surgery
PROC: 0DJD8ZZ Inspection of Lower Intestinal Tract, Via Natural or Artificial Opening Endoscopic (ICD-10-PCS; CPT 45378; principal; 2020-12-08 07:45)
DX: Z12.11 Encounter for screening for malignant neoplasm of colon (principal); E10.9 Type 1 diabetes mellitus without complications; Z79.4 Long term (current) use of insulin; K57.30 Diverticulosis of large intestine without perforation or abscess without bleeding
CPT/HCPCS: G0121; 99152; J2250; J3010

== ENCOUNTER → 2020-12-23 16:41 | Outpatient (CLI) | payer MEDICARE, SELFPAY ==
[2020-12-23] MEDS: COVID-19 VACC #1, MRNA(MOD) 100 MCG/0.5 ML VIAL IM (16:43)
== END ==
PROVIDERS: PCP Family Medicine; Visit Provider Internal Medicine
DX: Z23 Encounter for immunization (principal)
CPT/HCPCS: 0011A; 91301

== ENCOUNTER → 2021-01-21 12:54 | Outpatient (CLI) | payer MEDICARE, SELFPAY ==
[2021-01-21] MEDS: COVID-19 VACC #2, MRNA(MOD) 100 MCG/0.5 ML VIAL IM (13:03)
== END ==
PROVIDERS: PCP Family Medicine; Visit Provider Internal Medicine
DX: Z23 Encounter for immunization (principal)
CPT/HCPCS: 0012A; 91301

== ENCOUNTER → 2021-02-02 10:15 | Outpatient (CLI) | payer MEDICARE, SELFPAY ==
[2021-02-02 10:59] LABS: Hemoglobin A1C% w Est Avg Glu 7.9 % (4.0-6.0)
== END ==
PROVIDERS: PCP Family Medicine; Referring Provider Internal Medicine Endocrinology, Diabetes & Metabolism; Visit Provider Internal Medicine Endocrinology, Diabetes & Metabolism
DX: R73.09 Other abnormal glucose (principal)
CPT/HCPCS: 36415; 83036

== ENCOUNTER → 2021-04-14 08:01 | Outpatient (CLI) | payer MEDICARE, SELFPAY ==
[2021-04-14 09:08] LABS: Hemoglobin A1C% w Est Avg Glu 7.5 % (4.0-6.0)
[2021-04-14 09:23] LABS: Alanine Aminotransferase 20 IU/L (<50); Albumin 4.1 g/dL (3.5-5.0); Albumin Globulin Ratio 1.5 (1.0-2.8); Alkaline Phosphatase 56 U/L (38-126); Aspartate Aminotransferase 28 IU/L (17-59); BUN Creatinine Ratio 16.8 (6-22); Bilirubin Total 0.6 mg/dL (0.2-1.3); Blood Urea Nitrogen 18 mg/dL (9-20); Calcium 9.9 mg/dL (8.4-10.2); Carbon Dioxide 34 mmol/L (22-32); Chloride 99 mmol/L (98-107); Cholesterol 174 mg/dL (140-199); Estimated Glomerular Filt Rate > 60.0 mL/min (>60); Globulin 2.8 g/dL (1.7-4.1); Glucose 137 mg/dL (80-110); HDL Cholesterol 82 mg/dL (40-60); HEMOLYSIS < 15 (0-50); LDL Cholesterol Calculated 83 mg/dL (<100); Potassium 4.6 mmol/L (3.4-5.1); Sodium 137 mmol/L (137-145); Total Protein 6.9 g/dL (6.3-8.2); Triglycerides 47 mg/dL (35-150); VLDL Cholesterol Calculated 9 mg/dL (2-30)
[2021-04-14 10:38] LABS: Thyroid Stimulating Hormone < 0.015 uIU/mL (0.47-4.68)
[2021-04-14 11:38] LABS: Creatinine Urine Random 91.9 mg/dL
[2021-04-14 11:46] LABS: Microalbumi Creatinin Ratio Ur 6.5 ug/mg CR (<30); Microalbumin Urine Random 0.6 mg/dL (0-1.6)
== END ==
PROVIDERS: PCP Family Medicine; Referring Provider Internal Medicine Endocrinology, Diabetes & Metabolism; Visit Provider Internal Medicine Endocrinology, Diabetes & Metabolism
DX: E10.9 Type 1 diabetes mellitus without complications (principal)
CPT/HCPCS: 36415; 80053; 80061; 82043; 82570; 83036; 84443

== ENCOUNTER → 2022-01-22 15:11 | Outpatient (CLI) | payer MEDICARE, SELFPAY ==
--- NOTE | 2022-01-22 15:12 | DI.RAD.S_ITS ---
PROCEDURE: XR LUMBAR SPINE 2-3V INDICATIONS: back pain TECHNIQUE: 3 views of the lumbar spine were acquired. COMPARISON: [facility], , XR LUMBAR SPINE MIN 4V, 05/19/2020, 14:20. FINDINGS: Bones: 5 [id number] vertebrae are present. There is normal bony alignment. L1 compression fracture is similar. Grade 1 anterolisthesis of L5 on S1. Probable bilateral L1 pars defect. Moderate vertebral body osteophytes. No suspicious bony lesions. Soft tissues: Overlying bowel gas pattern is normal. No suspicious soft tissue calcifications. IMPRESSION: Similar L1 compression fracture. Moderate degenerative change. Dictated by: Nabil Lockwood M.D. on 01/22/2022 at 17:14 Approved by: Nabil Lockwood M.D. on 01/22/2022 at 17:15
== END ==
PROVIDERS: PCP Family Medicine; Referring Provider Family Medicine; Visit Provider Family Medicine
DX: M48.56XA Collapsed vertebra, not elsewhere classified, lumbar region, initial encounter for fracture (principal); M47.816 Spondylosis without myelopathy or radiculopathy, lumbar region; M54.50 Low back pain, unspecified
CPT/HCPCS: 72100

== ENCOUNTER → 2022-02-04 13:32 | Outpatient (CLI) | payer MEDICARE, SELFPAY ==
--- NOTE | 2022-02-04 13:34 | DI.MRI.S_ITS ---
PROCEDURE: MR LUMBAR SPINE WO CON INDICATIONS: Acute low back pain TECHNIQUE: Noncontrast sagittal T1 spin echo and T2 fast echo, sagittal STIR, axial T1 and T2 fast spin echo through the lumbar spine. In cases with scoliosis, additional coronal T2 fast spin echo may be performed. COMPARISON: [facility], CR, XR LUMBAR SPINE 2-3V, 01/22/2022, 15:01. [facility], CR, XR LUMBAR SPINE MIN 4V, 05/19/2020, 14:20. FINDINGS: Image quality: Excellent. Alignment and Curvature: There is mild L5-S1 anterolisthesis secondary to bilateral L5 pars interarticularis defects. Bone Marrow: Modic type 2 reactive endplate changes noted adjacent to the T12-L1, L1-L2, L2-L3, L3-L4 discs. Chronic appearing L1 compression fracture is stable compared to prior plain film radiographs. No acute vertebral body compression fractures. Schmorl's node noted in the superior endplate of the L4 vertebral body. Spinal Cord: Conus medullaris terminates at the L1 level. Visualized cord demonstrates normal signal and size. Paraspinous Soft Tissues: No paravertebral masses. T12-L1: Loss of disc signal and height. Mild, diffuse disc bulge. Mild narrowing of the central canal. Mild bilateral neural foraminal narrowing. No neural compression. L1-L2: Loss of disc signal. Mild, diffuse disc bulge. Mild narrowing of the central canal. Mild bilateral neural foraminal narrowing. No neural compression. L2-L3: Loss of disc signal and height. Moderate, diffuse disc bulge. Mild bilateral facet hypertrophy. Mild to moderate ligamentum flavum hypertrophy. Moderate to severe narrowing of the central canal with slight compression of the traversing nerve roots of the cauda equina. Moderate to severe bilateral neural foraminal narrowing with slight compression of the exiting bilateral L2 nerve roots. L3-L4: Loss of disc signal and height. Moderate, diffuse disc bulge. Moderate bilateral facet hypertrophy. Moderate ligamentum flavum hypertrophy. Moderate to severe narrowing of the central canal with slight compression of the traversing nerve roots of the cauda equina. Severe bilateral neural foraminal narrowing with compression of the exiting L3 nerve roots. L4-L5: Loss of disc signal. Mild, diffuse disc bulge. Moderate bilateral facet hypertrophy. Mild narrowing of the central canal. Moderate to severe bilateral neural foraminal narrowing with slight compression of the exiting bilateral L4 nerve roots. L5-S1: Loss of disc signal. Mild, diffuse disc bulge. Mild bilateral facet hypertrophy. No central stenosis. Severe bilateral neural foraminal narrowing with compression of the exiting L5 nerve roots. IMPRESSION: 1. Grade 1 L5-S1 isthmic spondylolisthesis. 2. Multilevel degenerative disc disease. 3. Multilevel facet arthropathy. 4. Moderate to severe L2-L3 and L3-L4 central canal narrowing with slight compression of the traversing nerve roots of the cauda equina. 5. Severe bilateral L3-L4 and L5-S1 neural foraminal narrowing with compression of the exiting bilateral L3 and L5 nerve roots. Moderate to severe bilateral L2-L3 and L4-L5 neural foraminal narrowing with slight compression of the exiting bilateral L2 and L4 nerve roots. Dictated by: Kia Zamora MD, PhD on 02/04/2022 at 15:54 Approved by: Kia Zamora MD, PhD on 02/04/2022 at 15:59
== END ==
PROVIDERS: Family Provider Family Medicine; PCP Family Medicine; Referring Provider Family Medicine; Visit Provider Family Medicine
DX: M43.16 Spondylolisthesis, lumbar region (principal); M47.816 Spondylosis without myelopathy or radiculopathy, lumbar region; S32.010A Wedge compression fracture of first lumbar vertebra, initial encounter for closed fracture; M47.817 Spondylosis without myelopathy or radiculopathy, lumbosacral region; M48.061 Spinal stenosis, lumbar region without neurogenic claudication; M48.07 Spinal stenosis, lumbosacral region; M51.36 Other intervertebral disc degeneration, lumbar region; M51.37 Other intervertebral disc degeneration, lumbosacral region; M54.50 Low back pain, unspecified
CPT/HCPCS: 72148

== ENCOUNTER → 2022-02-16 08:47 | Outpatient (CLI) | payer MEDICARE, SELFPAY ==
[2022-02-16 10:00] LABS: Hemoglobin A1C% w Est Avg Glu 7.8 % (4.0-6.0)
[2022-02-16 10:01] LABS: Alanine Aminotransferase 23 IU/L (<50); Albumin 3.7 g/dL (3.5-5.0); Albumin Globulin Ratio 1.4 (1.0-2.8); Alkaline Phosphatase 60 U/L (38-126); Aspartate Aminotransferase 26 IU/L (17-59); BUN Creatinine Ratio 24.3 (6-22); Bilirubin Total 0.5 mg/dL (0.2-1.3); Blood Urea Nitrogen 26 mg/dL (9-20); Carbon Dioxide 34 mmol/L (22-32); Chloride 97 mmol/L (98-107); Estimated Glomerular Filt Rate > 60.0 mL/min (>60); Globulin 2.6 g/dL (1.7-4.1); Glucose 268 mg/dL (80-110); HEMOLYSIS < 15 (0-50); Potassium 4.3 mmol/L (3.4-5.1); Sodium 135 mmol/L (137-145); Total Protein 6.3 g/dL (6.3-8.2)
[2022-02-16 10:52] LABS: Free T4, Direct Thyroxine 1.71 ng/dL (0.78-2.19)
[2022-02-16 11:11] LABS: Thyroid Stimulating Hormone < 0.015 uIU/mL (0.47-4.68)
== END ==
PROVIDERS: Family Provider Family Medicine; PCP Family Medicine; Referring Provider Internal Medicine Endocrinology, Diabetes & Metabolism; Visit Provider Internal Medicine Endocrinology, Diabetes & Metabolism
DX: E10.65 Type 1 diabetes mellitus with hyperglycemia (principal)
CPT/HCPCS: 36415; 80053; 83036; 84439; 84443

== ENCOUNTER 2022-04-14 13:00 | Outpatient (RCR) | payer MEDICARE, SELFPAY ==
--- NOTE | 2022-03-03 16:14 | PT.OIE ---
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 Hypothyroidism Lumbar pars defect Past Surgical History (Last Reviewed 06/22/21 @ 11:28 by Ronald Woo MD) H/O shoulder replacement History of surgical removal of pituitary gland Visit Care Team Role Provider Type Radha Perez MD Attending Provider Physician Family Provider Primary Care Provider Referring Provider Specialty: [facility] Address: [address] [place] [address], [facility] Email: [email or web address] Physical Therapy Initial Evaluation PT-OP-A Visit Information Start: 02/23/22 12:30 Freq: Status: Active Protocol: Document 03/03/22 08:15 AMB (Rec: 03/03/22 09:18 AMB [id number]) Out-Patient Physical Therapy Visit Information Visit Information Visit Type Initial Evaluation Visit Start Time 08:15 Visit Stop Time 09:00 Total Visit Minutes 45 Visit Number 1 PT-OP-B Current Condition Start: 02/23/22 12:30 Freq: Status: Active Protocol: Document 03/03/22 08:20 AMB (Rec: 03/03/22 08:39 AMB [id number]) Current Condition History of Current Condition Onset Date chronic Current Complaints low back pain History of Current Condition When I first get up out of bed , difficult to straighten up. Bending over and lifting increases pain significantly. 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 Stairs are concerning with balance. Prior Treatments and Tests MRI: 02/04/22: L2-3 and L3-L4 moderate to severe central canal narrowing with slight compression of cauda equina. Severe bilateral L3L4 and L5S1 foraminal narrowing with compression of L3 and L5 nerve roots. Future Testing and Treatments Planned Going to see Dr. Monroy tomorrow Prior Functional Status Baseline Function- ADL's Independent Baseline Function- Mobility Independent Current Functional Impairments (Reported) Functional Limitations- ADL's Stiffness AM that limits bed mobility and sit to stand, difficulty bending and lifting , concern re balance Personal Factors Other Personal Factors That May Effect DM I, L shoulder dislocation Therapy/Recovery history, does have a glucose monitor on stomach, seizure history. PT-OP-C Subjective Start: 02/23/22 12:30 Freq: Status: Active Protocol: Document 03/03/22 08:15 AMB (Rec: 03/03/22 09:44 AMB [id number]) Patient Questionnaires Oswestry Low Back Index Oswestry Score 16 Oswestry Impairment 1 to 19% Impaired (Score 1-19) PT-OP-G Mobility & Gait Start: 02/23/22 12:30 Freq: Status: Active Protocol: Document 03/03/22 08:15 AMB (Rec: 03/03/22 09:44 AMB [id number]) OP Mobility Evaluation Bed Mobility Supine to and from Sit gets out of bed from right sidelying, does have pain in R QL with sidelying to sit PT-OP-J Posture/Palpation/Skin Start: 02/23/22 12:30 Freq: Status: Active Protocol: Document 03/03/22 08:15 AMB (Rec: 03/03/22 09:44 AMB [id number]) Posture Evaluation Comments Posture Comments Right shoulder high in standing, right scapula more prominent with forward flexion , increased lumbar lordosis/ thoracic kyphosis in standing Palpation Assessment Location One Palpation Location lumbothoracic Palpation Details stiffness with PAs tension and pain at R QL>L, tension at paraspinals bilateral but pt denies pain with palpation PT-OP-K Range of Motion Start: 02/23/22 12:30 Freq: Status: Active Protocol: Document 03/03/22 08:15 AMB (Rec: 03/03/22 09:18 AMB [id number]) Lumbar Spine Range of Motion Lumbar Spine Active Degrees Testing Position Standing Flexion 40 Extension 20 Lateral Flexion Left 15 Lateral Flexion Right 10 PT-OP-Q Treatments Start: 02/23/22 12:30 Freq: Status: Active Protocol: Document 03/03/22 08:15 AMB (Rec: 03/03/22 09:44 AMB [id number]) Therapeutic Exercises Supine Exercises 1 Supine Exercise Name LTR Reps/Minutes 10 Other Exercises 1 Other Exercise Name marcos pose with sidebend Reps/Minutes 30x2 PT-OP-T Assessment and Plan Start: 02/23/22 12:30 Freq: Status: Active Protocol: Document 03/03/22 08:15 AMB (Rec: 03/03/22 09:44 AMB [id number]) Physical Therapy Assessment Rehab Potential Rehabilitation Potential Good Evaluation Complexity Number of Personal Factors/Comorbidities 3 or More Number of Body Systems Impaired 4 or More Clinical Presentation at Evaluation Evolving Impairments Impairments Balance,Functional Activities, Posture,ROM,Soft Tissue Mobility,Strength Goals Three Impairment Balance Short Term Goal (STG) Javi will stand on one leg for 8 seconds to show improved static balance. STG Duration 4 weeks Two Impairment Pain Short Term Goal (STG) Javi will unload the business solutions architect with good body mechanics and without an increase in baseline pain. STG Duration 4 weeks Residential Goal (LTG) Javi will perform all bed mobility without an increase in pain. LTG Duration 8 weeks One Impairment Strength Short Term Goal (STG) Javi will be independent with a HEP to improve his strength and range of motion. STG Duration 4 weeks Assessment Summary Assessment Javi attends physical therapy with significant back history: see MRI, will be seeing orthopedic surgeon tomorrow, but hoping to avoid surgery. He is most bothered by reduced balance, stiffness upon arising (worse in the morning) , and difficulty bending over and picking up items from the floor. He states he has a difficult time squatting due to weakness in his legs, and did show some weakness in his lower extremiteis, but denies falls. He will benefit from physical therapy to improve his range of motion especially early in the morning, and work to improve his overall mobility including bed mobility, body mechanics training, and moving from sit to stand. Physical Therapy Plan Frequency and Duration Frequency of Treatment 2x/Week Duration of Treatment 8 weeks Plan of Care Start Date 03/03/22 Plan of Care End Date 04/28/22 Therapeutic Interventions Therapeutic Interventions Balance Training,Gait Training ,Home Exercise Program,Manual Therapy,Neuromuscular Re- education,Self-Care/Home Management,Soft Tissue Mobilization,Therapeutic Activities,Therapeutic Exercises Modalities Cold Pack/Ice Massage,Electric Stimulation,Hot Packs Next Visit Focus/Plan Next Note Type Treatment Note Next Visit Plan Review stretches, start balance HEP, work on stiffness getting out of recliner.
--- NOTE | 2022-03-03 16:15 | PT.OPPOC ---
Physical, Occupational & Speech Therapy At [facility] Current Diagnoses Spondylolysis, lumbar region (03/03/22) Spondylosis without myelopathy or radiculopathy, lumbar region (03/03/22) Low back pain, unspecified (03/03/22) Wedge compression fracture of first lumbar vertebra, initial encounter for closed fracture (03/03/22) Visit Care Team Role Provider Type Radha Perez MD Attending Provider Physician Family Provider Primary Care Provider Referring Provider Specialty: Family Practice Address: [address] [place] [address], [id number] Email: [email or web address] Plan Of Care PT-OP-T Assessment and Plan Start: 02/23/22 12:30 Freq: Status: Active Protocol: Document 03/03/22 08:15 AMB (Rec: 03/03/22 09:44 AMB [id number]) Physical Therapy Assessment Rehab Potential Rehabilitation Potential Good Evaluation Complexity Number of Personal Factors/Comorbidities 3 or More Number of Body Systems Impaired 4 or More Clinical Presentation at Evaluation Evolving Impairments Impairments Balance,Functional Activities, Posture,ROM,Soft Tissue Mobility,Strength Goals Three Impairment Balance Short Term Goal (STG) Javi will stand on one leg for 8 seconds to show improved static balance. STG Duration 4 weeks Two Impairment Pain Short Term Goal (STG) Javi will unload the rugby league footballer with good body mechanics and without an increase in baseline pain. STG Duration 4 weeks Upstairs Maid Goal (LTG) Javi will perform all bed mobility without an increase in pain. LTG Duration 8 weeks One Impairment Strength Short Term Goal (STG) Javi will be independent with a HEP to improve his strength and range of motion. STG Duration 4 weeks Assessment Summary Assessment Javi attends physical therapy with significant back history: see MRI, will be seeing orthopedic surgeon tomorrow, but hoping to avoid surgery. He is most bothered by reduced balance, stiffness upon arising (worse in the morning) , and difficulty bending over and picking up items from the floor. He states he has a difficult time squatting due to weakness in his legs, and did show some weakness in his lower extremiteis, but denies falls. He will benefit from physical therapy to improve his range of motion especially early in the morning, and work to improve his overall mobility including bed mobility, body mechanics training, and moving from sit to stand. Physical Therapy Plan Frequency and Duration Frequency of Treatment 2x/Week Duration of Treatment 8 weeks Plan of Care Start Date 03/03/22 Plan of Care End Date 04/28/22 Therapeutic Interventions Therapeutic Interventions Balance Training,Gait Training ,Home Exercise Program,Manual Therapy,Neuromuscular Re- education,Self-Care/Home Management,Soft Tissue Mobilization,Therapeutic Activities,Therapeutic Exercises Modalities Cold Pack/Ice Massage,Electric Stimulation,Hot Packs Next Visit Focus/Plan Next Note Type Treatment Note Next Visit Plan Review stretches, start balance HEP, work on stiffness getting out of recliner. Plan of Care Dates Plan of Care Start Date 03/03/22 Plan of Care End Date 04/28/22 Electronically Signed by: Colleen Dobbs, PT 03/03/22 [id number] Please Sign and Return: I have reviewed this Plan of Care and certify that the skilled therapy services above are required to meet the patient?s needs. Physician Signature Date Printed Name and Credentials Clinical Instructor Signature Printed Name and Credentials
--- NOTE | 2022-03-05 10:16 | PT.OTN ---
Current Diagnoses Spondylolysis, lumbar region (03/05/22) Spondylosis without myelopathy or radiculopathy, lumbar region (03/05/22) Low back pain, unspecified (03/05/22) Wedge compression fracture of first lumbar vertebra, initial encounter for closed fracture (03/05/22) Physical Therapy Treatment Note PT-OP-A Visit Information Start: 02/23/22 12:30 Freq: Status: Active Protocol: Document 03/05/22 13:45 AMB (Rec: 03/07/22 10:16 AMB [id number]) Out-Patient Physical Therapy Visit Information Visit Information Visit Type Treatment Note Visit Start Time 13:45 Visit Stop Time 14:40 Total Visit Minutes 55 Visit Number 2 PT-OP-B Current Condition Start: 02/23/22 12:30 Freq: Status: Active Protocol: Document 03/03/22 08:20 AMB (Rec: 03/03/22 08:39 AMB [id number]) Current Condition History of Current Condition Onset Date chronic Current Complaints low back pain History of Current Condition When I first get up out of bed , difficult to straighten up. Bending over and lifting increases pain significantly. 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 Stairs are concerning with balance. Prior Treatments and Tests MRI: 02/04/22: L2-3 and L3-L4 moderate to severe central canal narrowing with slight compression of cauda equina. Severe bilateral L3L4 and L5S1 foraminal narrowing with compression of L3 and L5 nerve roots. Future Testing and Treatments Planned Going to see Dr. Monroy tomorrow Prior Functional Status Baseline Function- ADL's Independent Baseline Function- Mobility Independent Current Functional Impairments (Reported) Functional Limitations- ADL's Stiffness AM that limits bed mobility and sit to stand, difficulty bending and lifting , concern re balance Personal Factors Other Personal Factors That May Effect DM I, L shoulder dislocation Therapy/Recovery history, does have a glucose monitor on stomach, seizure history. PT-OP-C Subjective Start: 02/23/22 12:30 Freq: Status: Active Protocol: Document 03/05/22 13:45 AMB (Rec: 03/07/22 10:16 AMB [id number]) OP-PT Subjective Patient Comments Patient Comments Javi reports exercises are going ok, would like to work on balance today. Did meet with ortho surgeon who it sounds like offered a nerve ablation rather than surgery if PT doesn't reduce pain. PT-OP-G Mobility & Gait Start: 02/23/22 12:30 Freq: Status: Active Protocol: Document 03/03/22 08:15 AMB (Rec: 03/03/22 09:44 AMB [id number]) OP Mobility Evaluation Bed Mobility Supine to and from Sit gets out of bed from right sidelying, does have pain in R QL with sidelying to sit PT-OP-J Posture/Palpation/Skin Start: 02/23/22 12:30 Freq: Status: Active Protocol: Document 03/03/22 08:15 AMB (Rec: 03/03/22 09:44 AMB [id number]) Posture Evaluation Comments Posture Comments Right shoulder high in standing, right scapula more prominent with forward flexion , increased lumbar lordosis/ thoracic kyphosis in standing Palpation Assessment Location One Palpation Location lumbothoracic Palpation Details stiffness with PAs tension and pain at R QL>L, tension at paraspinals bilateral but pt denies pain with palpation PT-OP-K Range of Motion Start: 02/23/22 12:30 Freq: Status: Active Protocol: Document 03/03/22 08:15 AMB (Rec: 03/03/22 09:18 AMB [id number]) Lumbar Spine Range of Motion Lumbar Spine Active Degrees Testing Position Standing Flexion 40 Extension 20 Lateral Flexion Left 15 Lateral Flexion Right 10 PT-OP-Q Treatments Start: 02/23/22 12:30 Freq: Status: Active Protocol: Document 03/05/22 13:45 AMB (Rec: 03/07/22 10:16 AMB [id number]) Therapeutic Exercises Supine Exercises 2 Supine Exercise Name TA march Reps/Minutes 2x10 1 Supine Exercise Name LTR Reps/Minutes 10 Prone Exercises prone press up Comments painful Sidelying Exercises IT band stretch Reps/Minutes 30x3 Sitting Exercises seated flexion Reps/Minutes 5 Comments on therapy ball with sidebend Other Exercises 1 Other Exercise Name marcos pose with sidebend Reps/Minutes 30x2 Manual Therapy Treatment Soft Tissue Mobilization 1 Body Location R QL Mobilization Type Manual Lymphatic Drainage, Myofascial Release Intensity/Depth Moderate Body Position Sidelying Comments instruction in tennis ball self STM in addition to manual provided by therapist Neuro Re-Education Treatment Balance Activities partial tandem Comments EO/EC- HEP -- falls with full tandem PT-OP-T Assessment and Plan Start: 02/23/22 12:30 Freq: Status: Active Protocol: Document 03/05/22 13:45 AMB (Rec: 03/07/22 10:16 AMB [id number]) Physical Therapy Assessment Goals Three Impairment Balance Short Term Goal (STG) Javi will stand on one leg for 8 seconds to show improved static balance. STG Duration 4 weeks Two Impairment Pain Short Term Goal (STG) Javi will unload the population geneticist with good body mechanics and without an increase in baseline pain. STG Duration 4 weeks Suture Winder Hand Goal (LTG) Javi will perform all bed mobility without an increase in pain. LTG Duration 8 weeks One Impairment Strength Short Term Goal (STG) Javi will be independent with a HEP to improve his strength and range of motion. STG Duration 4 weeks Assessment Summary Assessment Javi had increased pain with spinal extension, needed cues for correct HEP performance. Had more success with spinal neutral and flexion positions. Physical Therapy Plan Next Visit Focus/Plan Next Note Type Treatment Note Next Visit Plan Review stretches, start balance HEP, work on stiffness getting out of recliner, body mechanics with lifting/ flexion
--- NOTE | 2022-03-08 16:24 | PT.OTN ---
Current Diagnoses Spondylolysis, lumbar region (03/08/22) Spondylosis without myelopathy or radiculopathy, lumbar region (03/08/22) Low back pain, unspecified (03/08/22) Wedge compression fracture of first lumbar vertebra, initial encounter for closed fracture (03/08/22) Physical Therapy Treatment Note PT-OP-A Visit Information Start: 02/23/22 12:30 Freq: Status: Active Protocol: Document 03/08/22 08:15 AMB (Rec: 03/08/22 16:24 AMB [id number]) Out-Patient Physical Therapy Visit Information Visit Information Visit Type Treatment Note Visit Start Time 08:15 Visit Stop Time 09:00 Total Visit Minutes 45 Visit Number 3 PT-OP-B Current Condition Start: 02/23/22 12:30 Freq: Status: Active Protocol: Document 03/03/22 08:20 AMB (Rec: 03/03/22 08:39 AMB [id number]) Current Condition History of Current Condition Onset Date chronic Current Complaints low back pain History of Current Condition When I first get up out of bed , difficult to straighten up. Bending over and lifting increases pain significantly. 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 Stairs are concerning with balance. Prior Treatments and Tests MRI: 02/04/22: L2-3 and L3-L4 moderate to severe central canal narrowing with slight compression of cauda equina. Severe bilateral L3L4 and L5S1 foraminal narrowing with compression of L3 and L5 nerve roots. Future Testing and Treatments Planned Going to see Dr. Monroy tomorrow Prior Functional Status Baseline Function- ADL's Independent Baseline Function- Mobility Independent Current Functional Impairments (Reported) Functional Limitations- ADL's Stiffness AM that limits bed mobility and sit to stand, difficulty bending and lifting , concern re balance Personal Factors Other Personal Factors That May Effect DM I, L shoulder dislocation Therapy/Recovery history, does have a glucose monitor on stomach, seizure history. PT-OP-C Subjective Start: 02/23/22 12:30 Freq: Status: Active Protocol: Document 03/08/22 08:15 AMB (Rec: 03/08/22 16:24 AMB [id number]) OP-PT Subjective Patient Comments Patient Comments Javi reports some soreness for about a day after PT. Continues to have pain with bending forward to pick things up from the floor, and doesn' tfeel like he has the strength/balance to perform a squat to get down to the floor . PT-OP-G Mobility & Gait Start: 02/23/22 12:30 Freq: Status: Active Protocol: Document 03/03/22 08:15 AMB (Rec: 03/03/22 09:44 AMB [id number]) OP Mobility Evaluation Bed Mobility Supine to and from Sit gets out of bed from right sidelying, does have pain in R QL with sidelying to sit PT-OP-J Posture/Palpation/Skin Start: 02/23/22 12:30 Freq: Status: Active Protocol: Document 03/03/22 08:15 AMB (Rec: 03/03/22 09:44 AMB [id number]) Posture Evaluation Comments Posture Comments Right shoulder high in standing, right scapula more prominent with forward flexion , increased lumbar lordosis/ thoracic kyphosis in standing Palpation Assessment Location One Palpation Location lumbothoracic Palpation Details stiffness with PAs tension and pain at R QL>L, tension at paraspinals bilateral but pt denies pain with palpation PT-OP-K Range of Motion Start: 02/23/22 12:30 Freq: Status: Active Protocol: Document 03/03/22 08:15 AMB (Rec: 03/03/22 09:18 AMB [id number]) Lumbar Spine Range of Motion Lumbar Spine Active Degrees Testing Position Standing Flexion 40 Extension 20 Lateral Flexion Left 15 Lateral Flexion Right 10 PT-OP-Q Treatments Start: 02/23/22 12:30 Freq: Status: Active Protocol: Document 03/08/22 08:15 AMB (Rec: 03/08/22 16:24 AMB [id number]) Therapeutic Exercises Supine Exercises 2 Supine Exercise Name TA march Reps/Minutes 2x10 1 Supine Exercise Name LTR Reps/Minutes 10 Sidelying Exercises IT band stretch Reps/Minutes 30x3 Standing Exercises sit to stand Reps/Minutes 2x10 Comments with UE support at sink Manual Therapy Treatment Soft Tissue Mobilization 1 Body Location R QL Mobilization Type Manual Lymphatic Drainage, Myofascial Release Intensity/Depth Moderate Body Position Sidelying Neuro Re-Education Treatment Balance Activities partial tandem Comments EO-- cued to find the width that works for pt. PT-OP-T Assessment and Plan Start: 02/23/22 12:30 Freq: Status: Active Protocol: Document 03/08/22 08:15 AMB (Rec: 03/08/22 16:24 AMB [id number]) Physical Therapy Assessment Goals Three Impairment Balance Short Term Goal (STG) Javi will stand on one leg for 8 seconds to show improved static balance. 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 STG Duration 4 weeks Prison Goal (LTG) Javi will perform all bed mobility without an increase in pain. LTG Duration 8 weeks One Impairment Strength Short Term Goal (STG) Javi will be independent with a HEP to improve his strength and range of motion. STG Duration 4 weeks Assessment Summary Assessment Javi was challenged by squats at the sink appropriately, legs fatigue quickly. Encouraged to work on balance and manual therapy for R QL, could consider continued self tennis ball STM at next visit (has pt tried at home?). Physical Therapy Plan Next Visit Focus/Plan Next Note Type Treatment Note Next Visit Plan Follow up on HEP of squats at sink, follow up on balance HEP . Work on body mechanics with lifting/flexion,
--- NOTE | 2022-03-11 09:06 | PT.OTN ---
Current Diagnoses Spondylolysis, lumbar region (03/11/22) Spondylosis without myelopathy or radiculopathy, lumbar region (03/11/22) Low back pain, unspecified (03/11/22) Wedge compression fracture of first lumbar vertebra, initial encounter for closed fracture (03/11/22) Physical Therapy Treatment Note PT-OP-A Visit Information Start: 02/23/22 12:30 Freq: Status: Active Protocol: Document 03/11/22 08:18 SP (Rec: 03/11/22 09:07 SP [id number]) Out-Patient Physical Therapy Visit Information Visit Information Visit Type Treatment Note Visit Start Time 08:18 Visit Stop Time 09:06 Total Visit Minutes 48 Visit Number 4 Number of STITCHER STANDARD MACHINE Visits 1 PT-OP-B Current Condition Start: 02/23/22 12:30 Freq: Status: Active Protocol: Document 03/03/22 08:20 AMB (Rec: 03/03/22 08:39 AMB [id number]) Current Condition History of Current Condition Onset Date chronic Current Complaints low back pain History of Current Condition When I first get up out of bed , difficult to straighten up. Bending over and lifting increases pain significantly. 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 Stairs are concerning with balance. Prior Treatments and Tests MRI: 02/04/22: L2-3 and L3-L4 moderate to severe central canal narrowing with slight compression of cauda equina. Severe bilateral L3L4 and L5S1 foraminal narrowing with compression of L3 and L5 nerve roots. Future Testing and Treatments Planned Going to see Dr. Monroy tomorrow Prior Functional Status Baseline Function- ADL's Independent Baseline Function- Mobility Independent Current Functional Impairments (Reported) Functional Limitations- ADL's Stiffness AM that limits bed mobility and sit to stand, difficulty bending and lifting , concern re balance Personal Factors Other Personal Factors That May Effect DM I, L shoulder dislocation Therapy/Recovery history, does have a glucose monitor on stomach, seizure history. PT-OP-C Subjective Start: 02/23/22 12:30 Freq: Status: Active Protocol: Document 03/11/22 08:18 SP (Rec: 03/11/22 09:07 SP [id number]) OP-PT Subjective Patient Comments Patient Comments Pt reported compliant with HEP , no pain with exercises but hasn't improved pain having when up moving around 5/10 normally but 8/10 when bent over digging in ground. PT-OP-G Mobility & Gait Start: 02/23/22 12:30 Freq: Status: Active Protocol: Document 03/03/22 08:15 AMB (Rec: 03/03/22 09:44 AMB [id number]) OP Mobility Evaluation Bed Mobility Supine to and from Sit gets out of bed from right sidelying, does have pain in R QL with sidelying to sit PT-OP-J Posture/Palpation/Skin Start: 02/23/22 12:30 Freq: Status: Active Protocol: Document 03/03/22 08:15 AMB (Rec: 03/03/22 09:44 AMB [id number]) Posture Evaluation Comments Posture Comments Right shoulder high in standing, right scapula more prominent with forward flexion , increased lumbar lordosis/ thoracic kyphosis in standing Palpation Assessment Location One Palpation Location lumbothoracic Palpation Details stiffness with PAs tension and pain at R QL>L, tension at paraspinals bilateral but pt denies pain with palpation PT-OP-K Range of Motion Start: 02/23/22 12:30 Freq: Status: Active Protocol: Document 03/03/22 08:15 AMB (Rec: 03/03/22 09:18 AMB [id number]) Lumbar Spine Range of Motion Lumbar Spine Active Degrees Testing Position Standing Flexion 40 Extension 20 Lateral Flexion Left 15 Lateral Flexion Right 10 PT-OP-Q Treatments Start: 02/23/22 12:30 Freq: Status: Active Protocol: Document 03/11/22 08:18 SP (Rec: 03/11/22 09:07 SP [id number]) Therapeutic Exercises Supine Exercises ITB stretcch Supine Exercise Name added to HEP w/ HO Side right Equipment Used w/ looped strap at foot, knee ext Reps/Minutes 30 x2 (cued choke up on strap to [place] recruit) Comments cue and demo for set up and awareness of stretch Lateral leg- good response 2 Supine Exercise Name TA january: single then upgrade to sequencial march Side bilateral Resistance AROM Equipment Used 90/90 hip/knees Reps/Minutes 5x4 sets Comments cues and demonstration for proper form: TA, stable pelvis , slow lift/ lower 1 Supine Exercise Name LTR Side bilateral Reps/Minutes 10 Comments cued TA slow pacing improved demo Prone Exercises prone press up Prone Exercise Name on elbows Resistance AROM Reps/Minutes 5 sec hold x5 Comments cued chin tuck, good painfree response Sidelying Exercises IT band stretch Sidelying Exercise Name unable on side Sitting Exercises seated flexion Sitting Exercise Name hold Comments pain into flexion seated on chair Other Exercises 1 Other Exercise Name marcos pose with sidebend/ lateral pelvic tilt (standing) Side bilateral Resistance HEP reviewed Equipment Used grasp sink Reps/Minutes 20x2- states feels good opp LS stretch Comments Mod verbal and occasional contact cues for set up/form, tends wt shift R/L Self-Care/Home Management Treatment Education Patient Education Pain Management,Posture Other Education Time spent on sleep positioning for back alignment : side- pillows between BLE and BUE, supine- under upper thighs- good feedback feels good. He stated didn't ever have pain sleeping but felt better w/ pillows. Brief review education: hip hinge squat / chest lift, bring object close to body then lifting mechanics. Improved post 1 cue. *Continue to review and see what mechanics digging in yard stated is doing and having pain. PT-OP-T Assessment and Plan Start: 02/23/22 12:30 Freq: Status: Active Protocol: Document 03/11/22 08:18 SP (Rec: 03/11/22 09:07 SP [id number]) Physical Therapy Assessment Goals Three Impairment Balance Short Term Goal (STG) Javi will stand on one leg for 8 seconds to show improved static balance. 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 STG Duration 4 weeks Wire Technician Goal (LTG) Javi will perform all bed mobility without an increase in pain. LTG Duration 8 weeks One Impairment Strength Short Term Goal (STG) Javi will be independent with a HEP to improve his strength and range of motion. STG Duration 4 weeks Assessment Summary Assessment Pt requires mulitple cues, demonstration shown for set up and improved form throughout ther ex. Provided hand outs for self recall, with verbal review before leaving. Pt improved demonstration overall and stated felt core more engagement. Physical Therapy Plan Frequency and Duration Frequency of Treatment 2x/Week Duration of Treatment 8 weeks Plan of Care Start Date 03/03/22 Plan of Care End Date 04/28/22 Therapeutic Interventions Therapeutic Interventions Balance Training,Gait Training ,Home Exercise Program,Manual Therapy,Neuromuscular Re- education,Self-Care/Home Management,Soft Tissue Mobilization,Therapeutic Activities,Therapeutic Exercises Modalities Cold Pack/Ice Massage,Electric Stimulation,Hot Packs Next Visit Focus/Plan Next Note Type Treatment Note Next Visit Plan Continue HEP review, yohannes TA sequencial january, ITB stretch, prone press up, squats at sink, follow up on balance HEP . Work on body mechanics with lifting/flexion and reported digging lately with pain.
--- NOTE | 2022-03-15 14:23 | PT.OTN ---
Current Diagnoses Spondylolysis, lumbar region (03/15/22) Spondylosis without myelopathy or radiculopathy, lumbar region (03/15/22) Low back pain, unspecified (03/15/22) Wedge compression fracture of first lumbar vertebra, initial encounter for closed fracture (03/15/22) Physical Therapy Treatment Note PT-OP-A Visit Information Start: 02/23/22 12:30 Freq: Status: Active Protocol: Document 03/15/22 08:19 AMB (Rec: 03/15/22 09:03 AMB [id number]) Out-Patient Physical Therapy Visit Information Visit Information Visit Type Treatment Note Visit Start Time 08:15 Visit Stop Time 09:00 Total Visit Minutes 45 Visit Number 5 PT-OP-B Current Condition Start: 02/23/22 12:30 Freq: Status: Active Protocol: Document 03/03/22 08:20 AMB (Rec: 03/03/22 08:39 AMB [id number]) Current Condition History of Current Condition Onset Date chronic Current Complaints low back pain History of Current Condition When I first get up out of bed , difficult to straighten up. Bending over and lifting increases pain significantly. 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 Stairs are concerning with balance. Prior Treatments and Tests MRI: 02/04/22: L2-3 and L3-L4 moderate to severe central canal narrowing with slight compression of cauda equina. Severe bilateral L3L4 and L5S1 foraminal narrowing with compression of L3 and L5 nerve roots. Future Testing and Treatments Planned Going to see Dr. Monroy tomorrow Prior Functional Status Baseline Function- ADL's Independent Baseline Function- Mobility Independent Current Functional Impairments (Reported) Functional Limitations- ADL's Stiffness AM that limits bed mobility and sit to stand, difficulty bending and lifting , concern re balance Personal Factors Other Personal Factors That May Effect DM I, L shoulder dislocation Therapy/Recovery history, does have a glucose monitor on stomach, seizure history. PT-OP-C Subjective Start: 02/23/22 12:30 Freq: Status: Active Protocol: Document 03/15/22 14:10 AMB (Rec: 03/15/22 14:22 AMB [id number]) OP-PT Subjective Patient Comments Patient Comments Javi reports he was doign yardwork over the weekend, picking up and lifting some wood and the back was pretty sore in the evening after doing that. PT-OP-G Mobility & Gait Start: 02/23/22 12:30 Freq: Status: Active Protocol: Document 03/03/22 08:15 AMB (Rec: 03/03/22 09:44 AMB [id number]) OP Mobility Evaluation Bed Mobility Supine to and from Sit gets out of bed from right sidelying, does have pain in R QL with sidelying to sit PT-OP-J Posture/Palpation/Skin Start: 02/23/22 12:30 Freq: Status: Active Protocol: Document 03/03/22 08:15 AMB (Rec: 03/03/22 09:44 AMB [id number]) Posture Evaluation Comments Posture Comments Right shoulder high in standing, right scapula more prominent with forward flexion , increased lumbar lordosis/ thoracic kyphosis in standing Palpation Assessment Location One Palpation Location lumbothoracic Palpation Details stiffness with PAs tension and pain at R QL>L, tension at paraspinals bilateral but pt denies pain with palpation PT-OP-K Range of Motion Start: 02/23/22 12:30 Freq: Status: Active Protocol: Document 03/03/22 08:15 AMB (Rec: 03/03/22 09:18 AMB [id number]) Lumbar Spine Range of Motion Lumbar Spine Active Degrees Testing Position Standing Flexion 40 Extension 20 Lateral Flexion Left 15 Lateral Flexion Right 10 PT-OP-Q Treatments Start: 02/23/22 12:30 Freq: Status: Active Protocol: Document 03/15/22 14:10 AMB (Rec: 03/15/22 14:22 AMB [id number]) Therapeutic Exercises Supine Exercises ITB stretcch Supine Exercise Name added to HEP w/ HO Side right Equipment Used w/ looped strap at foot, knee ext Reps/Minutes 30 x2 (cued choke up on strap to [place] recruit) Comments cue and demo for set up and awareness of stretch Lateral leg- good response 2 Supine Exercise Name TA january: single then upgrade to sequencial january Side bilateral Resistance AROM Equipment Used 90/90 hip/knees Reps/Minutes 5x4 sets Comments cues and demonstration for proper form: TA, stable pelvis , slow lift/ lower Standing Exercises wall squat Reps/Minutes 5x5 Comments HEP: 45 degrees sit to stand Reps/Minutes 2x10 Comments with UE support at sink Manual Therapy Treatment Soft Tissue Mobilization 1 Body Location R QL Mobilization Type Myofascial Release,Rolling, Sustained Pressure Intensity/Depth Moderate Body Position Sidelying PT-OP-T Assessment and Plan Start: 02/23/22 12:30 Freq: Status: Active Protocol: Document 03/15/22 14:10 AMB (Rec: 03/15/22 14:22 AMB [id number]) Physical Therapy Assessment Goals Three Impairment Balance Short Term Goal (STG) Javi will stand on one leg for 8 seconds to show improved static balance. 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 STG Duration 4 weeks Group Home Goal (LTG) Javi will perform all bed mobility without an increase in pain. LTG Duration 8 weeks One Impairment Strength Short Term Goal (STG) Javi will be independent with a HEP to improve his strength and range of motion. STG Duration 4 weeks Assessment Summary Assessment Javi felt better after manual, continued to instruct in strengthening and importance of this for body mechanics. Currently pt feels that legs are too weak to squat much and then he has to bend back to pick things up from floor. Physical Therapy Plan Next Visit Focus/Plan Next Note Type Treatment Note Next Visit Plan Continue HEP review, yohannes TA sequencial january, ITB stretch, prone press up, squats at sink, follow up on balance HEP . Work on body mechanics with lifting/flexion re: yardwork
--- NOTE | 2022-03-19 14:30 | PT.OTN ---
Current Diagnoses Spondylolysis, lumbar region (03/19/22) Spondylosis without myelopathy or radiculopathy, lumbar region (03/19/22) Low back pain, unspecified (03/19/22) Wedge compression fracture of first lumbar vertebra, initial encounter for closed fracture (03/19/22) Physical Therapy Treatment Note PT-OP-A Visit Information Start: 02/23/22 12:30 Freq: Status: Active Protocol: Document 03/19/22 13:48 SP (Rec: 03/19/22 14:32 SP [id number]) Out-Patient Physical Therapy Visit Information Visit Information Visit Type Treatment Note Visit Start Time 13:48 Visit Stop Time 14:30 Total Visit Minutes 42 Visit Number 6 Number of SHIPFITTER Visits 1 PT-OP-B Current Condition Start: 02/23/22 12:30 Freq: Status: Active Protocol: Document 03/03/22 08:20 AMB (Rec: 03/03/22 08:39 AMB [id number]) Current Condition History of Current Condition Onset Date chronic Current Complaints low back pain History of Current Condition When I first get up out of bed , difficult to straighten up. Bending over and lifting increases pain significantly. 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 Stairs are concerning with balance. Prior Treatments and Tests MRI: 02/04/22: L2-3 and L3-L4 moderate to severe central canal narrowing with slight compression of cauda equina. Severe bilateral L3L4 and L5S1 foraminal narrowing with compression of L3 and L5 nerve roots. Future Testing and Treatments Planned Going to see Dr. Monroy tomorrow Prior Functional Status Baseline Function- ADL's Independent Baseline Function- Mobility Independent Current Functional Impairments (Reported) Functional Limitations- ADL's Stiffness AM that limits bed mobility and sit to stand, difficulty bending and lifting , concern re balance Personal Factors Other Personal Factors That May Effect DM I, L shoulder dislocation Therapy/Recovery history, does have a glucose monitor on stomach, seizure history. PT-OP-C Subjective Start: 02/23/22 12:30 Freq: Status: Active Protocol: Document 03/19/22 13:48 SP (Rec: 03/19/22 14:32 SP [id number]) OP-PT Subjective Patient Comments Patient Comments Pt reports doing well with HEP , stated was able to split wood challenged with linign up spot wanted to hit. PT-OP-G Mobility & Gait Start: 02/23/22 12:30 Freq: Status: Active Protocol: Document 03/03/22 08:15 AMB (Rec: 03/03/22 09:44 AMB [id number]) OP Mobility Evaluation Bed Mobility Supine to and from Sit gets out of bed from right sidelying, does have pain in R QL with sidelying to sit PT-OP-J Posture/Palpation/Skin Start: 02/23/22 12:30 Freq: Status: Active Protocol: Document 03/03/22 08:15 AMB (Rec: 03/03/22 09:44 AMB [id number]) Posture Evaluation Comments Posture Comments Right shoulder high in standing, right scapula more prominent with forward flexion , increased lumbar lordosis/ thoracic kyphosis in standing Palpation Assessment Location One Palpation Location lumbothoracic Palpation Details stiffness with PAs tension and pain at R QL>L, tension at paraspinals bilateral but pt denies pain with palpation PT-OP-K Range of Motion Start: 02/23/22 12:30 Freq: Status: Active Protocol: Document 03/03/22 08:15 AMB (Rec: 03/03/22 09:18 AMB [id number]) Lumbar Spine Range of Motion Lumbar Spine Active Degrees Testing Position Standing Flexion 40 Extension 20 Lateral Flexion Left 15 Lateral Flexion Right 10 PT-OP-Q Treatments Start: 02/23/22 12:30 Freq: Status: Active Protocol: Document 03/19/22 13:48 SP (Rec: 03/19/22 14:32 SP [id number]) Therapeutic Exercises Standing Exercises wall posture Standing Exercise Name back roll up Shld ER to reach out side Side bilateral Resistance AROM Equipment Used back to wall Reps/Minutes x5, 5 sec hold Comments cued TA and neutral CS balance chops Standing Exercise Name continue in PT only Resistance TB #2 Equipment Used with and without dowel Reps/Minutes x10 Comments worked on mechanics of chopping, cued hip hinge not round back- challened shld extension Standing Exercise Name added to HEP Side bilateral Resistance Tb #2 Reps/Minutes 2x10 Comments cued shld back down/ pull toside seam of pants wall squat Standing Exercise Name HEP reviewed Equipment Used arms across chest, glide onwall Reps/Minutes 5x5 Comments HEP: 45 degrees sit to stand Standing Exercise Name changed from sink hold- for more effort, is painfree good quad work out Equipment Used green chair no arms, arms across chest Reps/Minutes x10 Comments arms across chest, cued hip hinge full, uses littlemomentum at this time PT-OP-T Assessment and Plan Start: 02/23/22 12:30 Freq: Status: Active Protocol: Document 03/19/22 13:48 SP (Rec: 03/19/22 14:32 SP [id number]) Physical Therapy Assessment Goals Three Impairment Balance Short Term Goal (STG) Javi will stand on one leg for 8 seconds to show improved static balance. STG Duration 4 weeks Two Impairment Pain Short Term Goal (STG) Javi will unload the mental health aides teacher with good body mechanics and without an increase in baseline pain. STG Duration 4 weeks Haz Tech Goal (LTG) Javi will perform all bed mobility without an increase in pain. LTG Duration 8 weeks One Impairment Strength Short Term Goal (STG) Javi will be independent with a HEP to improve his strength and range of motion. STG Duration 4 weeks Assessment Summary Assessment Pt improved postural TA and scap stabilization after intiated and cues scap positioning for home. Pt challenged by juliocesar TB, requried Max cues for hip hinge and squat mechanics for proper form. Stated will work on so not to hurt back. Physical Therapy Plan Frequency and Duration Frequency of Treatment 2x/Week Duration of Treatment 8 weeks Plan of Care Start Date 03/03/22 Plan of Care End Date 04/28/22 Therapeutic Interventions Therapeutic Interventions Balance Training,Gait Training ,Home Exercise Program,Manual Therapy,Neuromuscular Re- education,Self-Care/Home Management,Soft Tissue Mobilization,Therapeutic Activities,Therapeutic Exercises Modalities Cold Pack/Ice Massage,Electric Stimulation,Hot Packs Next Visit Focus/Plan Next Note Type Treatment Note Next Visit Plan Continue HEP review: wall roll ups, shld ext and again, yohannes TA sequencial january, ITB stretch, prone press up, squats at sink, follow up on balance HEP. Work on body mechanics with lifting/flexion re: yardwork
--- NOTE | 2022-03-22 15:52 | PT.OTN ---
Current Diagnoses Spondylolysis, lumbar region (03/22/22) Spondylosis without myelopathy or radiculopathy, lumbar region (03/22/22) Low back pain, unspecified (03/22/22) Wedge compression fracture of first lumbar vertebra, initial encounter for closed fracture (03/22/22) Physical Therapy Treatment Note PT-OP-A Visit Information Start: 02/23/22 12:30 Freq: Status: Active Protocol: Document 03/22/22 08:19 AMB (Rec: 03/22/22 09:03 AMB [id number]) Out-Patient Physical Therapy Visit Information Visit Information Visit Type Treatment Note Visit Start Time 08:15 Visit Stop Time 09:00 Total Visit Minutes 45 Visit Number 7 PT-OP-B Current Condition Start: 02/23/22 12:30 Freq: Status: Active Protocol: Document 03/03/22 08:20 AMB (Rec: 03/03/22 08:39 AMB [id number]) Current Condition History of Current Condition Onset Date chronic Current Complaints low back pain History of Current Condition When I first get up out of bed , difficult to straighten up. Bending over and lifting increases pain significantly. 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 Stairs are concerning with balance. Prior Treatments and Tests MRI: 02/04/22: L2-3 and L3-L4 moderate to severe central canal narrowing with slight compression of cauda equina. Severe bilateral L3L4 and L5S1 foraminal narrowing with compression of L3 and L5 nerve roots. Future Testing and Treatments Planned Going to see Dr. Monroy tomorrow Prior Functional Status Baseline Function- ADL's Independent Baseline Function- Mobility Independent Current Functional Impairments (Reported) Functional Limitations- ADL's Stiffness AM that limits bed mobility and sit to stand, difficulty bending and lifting , concern re balance Personal Factors Other Personal Factors That May Effect DM I, L shoulder dislocation Therapy/Recovery history, does have a glucose monitor on stomach, seizure history. PT-OP-C Subjective Start: 02/23/22 12:30 Freq: Status: Active Protocol: Document 03/22/22 08:15 AMB (Rec: 03/22/22 10:52 AMB [id number]) OP-PT Subjective Patient Comments Patient Comments Javi reports he did a lot of yardwork over the weekend and felt ok with that, but continues to have pain upon getting up, and when standing up from sitting in the chair he likes to drink coffee in shortly after getting up. PT-OP-G Mobility & Gait Start: 02/23/22 12:30 Freq: Status: Active Protocol: Document 03/03/22 08:15 AMB (Rec: 03/03/22 09:44 AMB [id number]) OP Mobility Evaluation Bed Mobility Supine to and from Sit gets out of bed from right sidelying, does have pain in R QL with sidelying to sit PT-OP-J Posture/Palpation/Skin Start: 02/23/22 12:30 Freq: Status: Active Protocol: Document 03/03/22 08:15 AMB (Rec: 03/03/22 09:44 AMB [id number]) Posture Evaluation Comments Posture Comments Right shoulder high in standing, right scapula more prominent with forward flexion , increased lumbar lordosis/ thoracic kyphosis in standing Palpation Assessment Location One Palpation Location lumbothoracic Palpation Details stiffness with PAs tension and pain at R QL>L, tension at paraspinals bilateral but pt denies pain with palpation PT-OP-K Range of Motion Start: 02/23/22 12:30 Freq: Status: Active Protocol: Document 03/03/22 08:15 AMB (Rec: 03/03/22 09:18 AMB [id number]) Lumbar Spine Range of Motion Lumbar Spine Active Degrees Testing Position Standing Flexion 40 Extension 20 Lateral Flexion Left 15 Lateral Flexion Right 10 PT-OP-Q Treatments Start: 02/23/22 12:30 Freq: Status: Active Protocol: Document 03/22/22 08:15 AMB (Rec: 03/22/22 10:52 AMB [id number]) Therapeutic Exercises Supine Exercises 2 Supine Exercise Name TA january: single then upgrade to sequencial january Side bilateral Resistance AROM Equipment Used 90/90 hip/knees Reps/Minutes 5x4 sets Comments pt continues to need cues: TA, stable pelvis, slow lift/ lower 1 Supine Exercise Name LTR Side bilateral Reps/Minutes 10 Comments cued TA slow pacing improved demo Standing Exercises box pick up driver Standing Exercise Name squat to pick up driver 10# Reps/Minutes 10 Comments cued hip hinge shld extension Standing Exercise Name added to HEP Side bilateral Resistance Tb #2 Reps/Minutes 2x10 Comments cued shld back down/ pull toside seam of pants sit to stand Standing Exercise Name cont to push hip hinge Equipment Used green chair no arms, arms across chest Reps/Minutes x10 Comments arms across chest, cued hip hinge full, uses littlemomentum at this time Neuro Re-Education Treatment Balance Activities single leg stance Comments 3-5 seconds eyes open. partial tandem Comments EO then EC cued to find the width that works for pt. PT-OP-T Assessment and Plan Start: 02/23/22 12:30 Freq: Status: Active Protocol: Document 03/22/22 08:19 AMB (Rec: 03/22/22 09:03 [facility] [id number]) Physical Therapy Assessment Goals Three Impairment Balance Short Term Goal (STG) Javi will stand on one leg for 8 seconds to show improved static balance. STG Duration 4 weeks Two Impairment Pain Short Term Goal (STG) Javi will unload the pineapple plantation manager with good body mechanics and without an increase in baseline pain. STG Duration 4 weeks Auto Design Checker Goal (LTG) Javi will perform all bed mobility without an increase in pain. LTG Duration 8 weeks One Impairment Strength Short Term Goal (STG) Javi will be independent with a HEP to improve his strength and range of motion. STG Duration 4 weeks Assessment Summary Assessment Asked Javi to sit in a different chair in the mornings and see if back pain is any better, then if not could consider exercising/ moving for 10 min before sitting down to use computer. Physical Therapy Plan Next Visit Focus/Plan Next Note Type Treatment Note Next Visit Plan Continue HEP review: wall roll ups, shld ext and again, yohannes TA sequencial january, ITB stretch, prone press up, squats at sink, follow up on balance HEP.
--- NOTE | 2022-03-26 14:30 | PT.OTN ---
Current Diagnoses Spondylolysis, lumbar region (03/26/22) Spondylosis without myelopathy or radiculopathy, lumbar region (03/26/22) Low back pain, unspecified (03/26/22) Wedge compression fracture of first lumbar vertebra, initial encounter for closed fracture (03/26/22) Physical Therapy Treatment Note PT-OP-A Visit Information Start: 02/23/22 12:30 Freq: Status: Active Protocol: Document 03/26/22 13:46 SP (Rec: 03/26/22 14:35 SP [id number]) Out-Patient Physical Therapy Visit Information Visit Information Visit Type Treatment Note Visit Start Time 13:46 Visit Stop Time 14:30 Total Visit Minutes 44 Visit Number 8 Number of SALES PROMOTION DIRECTOR Visits 1 PT-OP-B Current Condition Start: 02/23/22 12:30 Freq: Status: Active Protocol: Document 03/03/22 08:20 AMB (Rec: 03/03/22 08:39 AMB [id number]) Current Condition History of Current Condition Onset Date chronic Current Complaints low back pain History of Current Condition When I first get up out of bed , difficult to straighten up. Bending over and lifting increases pain significantly. 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 Stairs are concerning with balance. Prior Treatments and Tests MRI: 02/04/22: L2-3 and L3-L4 moderate to severe central canal narrowing with slight compression of cauda equina. Severe bilateral L3L4 and L5S1 foraminal narrowing with compression of L3 and L5 nerve roots. Future Testing and Treatments Planned Going to see Dr. Monroy tomorrow Prior Functional Status Baseline Function- ADL's Independent Baseline Function- Mobility Independent Current Functional Impairments (Reported) Functional Limitations- ADL's Stiffness AM that limits bed mobility and sit to stand, difficulty bending and lifting , concern re balance Personal Factors Other Personal Factors That May Effect DM I, L shoulder dislocation Therapy/Recovery history, does have a glucose monitor on stomach, seizure history. PT-OP-C Subjective Start: 02/23/22 12:30 Freq: Status: Active Protocol: Document 03/26/22 13:46 SP (Rec: 03/26/22 14:35 SP [id number]) OP-PT Subjective Patient Comments Patient Comments Pt stated has been helping in the garden, lifting things for her, and think back doing better and mechanics improved with therapy. PT-OP-G Mobility & Gait Start: 02/23/22 12:30 Freq: Status: Active Protocol: Document 03/03/22 08:15 AMB (Rec: 03/03/22 09:44 AMB [id number]) OP Mobility Evaluation Bed Mobility Supine to and from Sit gets out of bed from right sidelying, does have pain in R QL with sidelying to sit PT-OP-J Posture/Palpation/Skin Start: 02/23/22 12:30 Freq: Status: Active Protocol: Document 03/03/22 08:15 AMB (Rec: 03/03/22 09:44 AMB [id number]) Posture Evaluation Comments Posture Comments Right shoulder high in standing, right scapula more prominent with forward flexion , increased lumbar lordosis/ thoracic kyphosis in standing Palpation Assessment Location One Palpation Location lumbothoracic Palpation Details stiffness with PAs tension and pain at R QL>L, tension at paraspinals bilateral but pt denies pain with palpation PT-OP-K Range of Motion Start: 02/23/22 12:30 Freq: Status: Active Protocol: Document 03/03/22 08:15 AMB (Rec: 03/03/22 09:18 AMB [id number]) Lumbar Spine Range of Motion Lumbar Spine Active Degrees Testing Position Standing Flexion 40 Extension 20 Lateral Flexion Left 15 Lateral Flexion Right 10 PT-OP-Q Treatments Start: 02/23/22 12:30 Freq: Status: Active Protocol: Document 03/26/22 13:46 SP (Rec: 03/26/22 14:35 SP [id number]) Therapeutic Exercises Supine Exercises 2 Supine Exercise Name TA january: sequencial DL january Side bilateral Resistance AROM Equipment Used 90/90 hip/knees Reps/Minutes 5x4 sets Comments pt continues to need cues: TA, stable pelvis, TA slow lift/ lower 1 Supine Exercise Name LTR Side bilateral Reps/Minutes 10 Comments cued TA slow pacing improved demo Standing Exercises box grape picker Standing Exercise Name squat to grape picker wt then pencil floor Resistance 10#> 20# Reps/Minutes 10 Comments cued hip hinge- improved closer to body, pencil better DON scap retractdemo wall posture Standing Exercise Name back roll up- shown HEP scanned HO and remembers will use at home perform Side bilateral Resistance AROM Equipment Used back to wall Reps/Minutes 10 sec hold x10 Comments cued TA and neutral CS balance shld extension Standing Exercise Name reviewed HEP Side bilateral Resistance Tb #2> #3 Reps/Minutes 2x10 Comments cued shld back down/ pull to side seam of pants wall squat Standing Exercise Name HEP reviewed Equipment Used arms across chest, glide onwall Reps/Minutes 5x5 Comments HEP: 45 degrees sit to stand Standing Exercise Name Continue cue hip hinge Equipment Used mesh chair, arms across chest Reps/Minutes x10 Comments arms across chest, cued slow hip hinge all way chair Neuro Re-Education Treatment Balance Activities single leg stance Surface firm Equipment corner back, chair front Comments 3-5 seconds eyes open, 4 sec, contact other foot 12 sec. partial tandem Surface firm Equipment corner back, chair front Comments EC arms across chest: 30s stable Self-Care/Home Management Treatment Education Patient Education Body Mechanics,Pain Management ,Posture Other Education Ed for back alignment for lifting objects heavy and small light for balance and proper mechanics to decrease stress on spine for longevity. Better demonstration and understanding corrections. PT-OP-T Assessment and Plan Start: 02/23/22 12:30 Freq: Status: Active Protocol: Document 03/26/22 13:46 SP (Rec: 03/26/22 14:35 SP [id number]) Physical Therapy Assessment Goals Three Impairment Balance Short Term Goal (STG) Jvai will stand on one leg for 8 seconds to show improved static balance. STG Duration 4 weeks Two Impairment Pain Short Term Goal (STG) Javi will unload the executive director global brand marketing with good body mechanics and without an increase in baseline pain. STG Duration 4 weeks Waxer Operator Goal (LTG) Javi will perform all bed mobility without an increase in pain. LTG Duration 8 weeks One Impairment Strength Short Term Goal (STG) Javi will be independent with a HEP to improve his strength and range of motion. STG Duration 4 weeks Assessment Summary Assessment Pt improved understanding back straight, hip hinge, bodymechanics lifting heavy and light. REview wall roll ups for postural awareness, feel muscle mid back working with proper form. Continues challenge slow pacing TA supine ther ex. Physical Therapy Plan Frequency and Duration Frequency of Treatment 2x/Week Duration of Treatment 8 weeks Plan of Care Start Date 03/03/22 Plan of Care End Date 04/28/22 Therapeutic Interventions Therapeutic Interventions Balance Training,Gait Training ,Home Exercise Program,Manual Therapy,Neuromuscular Re- education,Self-Care/Home Management,Soft Tissue Mobilization,Therapeutic Activities,Therapeutic Exercises Modalities Cold Pack/Ice Massage,Electric Stimulation,Hot Packs Next Visit Focus/Plan Next Note Type Treatment Note Next Visit Plan Continue HEP review: wall roll ups, shld ext and again, yohannes TA sequencial january, ITB stretch, prone press up, squats at sink, follow up on balance HEP.
--- NOTE | 2022-03-30 13:01 | PT.OTN ---
Current Diagnoses Spondylolysis, lumbar region (03/30/22) Spondylosis without myelopathy or radiculopathy, lumbar region (03/30/22) Low back pain, unspecified (03/30/22) Wedge compression fracture of first lumbar vertebra, initial encounter for closed fracture (03/30/22) Physical Therapy Treatment Note PT-OP-A Visit Information Start: 02/23/22 12:30 Freq: Status: Active Protocol: Document 03/30/22 11:18 AMB (Rec: 03/30/22 12:03 AMB [id number]) Out-Patient Physical Therapy Visit Information Visit Information Visit Type Treatment Note Visit Start Time 11:15 Visit Stop Time 12:00 Total Visit Minutes 45 Visit Number 9 PT-OP-B Current Condition Start: 02/23/22 12:30 Freq: Status: Active Protocol: Document 03/03/22 08:20 AMB (Rec: 03/03/22 08:39 AMB [id number]) Current Condition History of Current Condition Onset Date chronic Current Complaints low back pain History of Current Condition When I first get up out of bed , difficult to straighten up. Bending over and lifting increases pain significantly. 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 Stairs are concerning with balance. Prior Treatments and Tests MRI: 02/04/22: L2-3 and L3-L4 moderate to severe central canal narrowing with slight compression of cauda equina. Severe bilateral L3L4 and L5S1 foraminal narrowing with compression of L3 and L5 nerve roots. Future Testing and Treatments Planned Going to see Dr. Monroy tomorrow Prior Functional Status Baseline Function- ADL's Independent Baseline Function- Mobility Independent Current Functional Impairments (Reported) Functional Limitations- ADL's Stiffness AM that limits bed mobility and sit to stand, difficulty bending and lifting , concern re balance Personal Factors Other Personal Factors That May Effect DM I, L shoulder dislocation Therapy/Recovery history, does have a glucose monitor on stomach, seizure history. PT-OP-C Subjective Start: 02/23/22 12:30 Freq: Status: Active Protocol: Document 03/30/22 11:15 AMB (Rec: 03/30/22 12:57 AMB [id number]) OP-PT Subjective Patient Comments Patient Comments Javi continues to report 7/10 pain in the morning when first arrising ,then feels it throughout the day but isn't as bad. Feels like balance isn't really progressing continues to note PT-OP-G Mobility & Gait Start: 02/23/22 12:30 Freq: Status: Active Protocol: Document 03/03/22 08:15 AMB (Rec: 03/03/22 09:44 AMB [id number]) OP Mobility Evaluation Bed Mobility Supine to and from Sit gets out of bed from right sidelying, does have pain in R QL with sidelying to sit PT-OP-J Posture/Palpation/Skin Start: 02/23/22 12:30 Freq: Status: Active Protocol: Document 03/03/22 08:15 AMB (Rec: 03/03/22 09:44 AMB [id number]) Posture Evaluation Comments Posture Comments Right shoulder high in standing, right scapula more prominent with forward flexion , increased lumbar lordosis/ thoracic kyphosis in standing Palpation Assessment Location One Palpation Location lumbothoracic Palpation Details stiffness with PAs tension and pain at R QL>L, tension at paraspinals bilateral but pt denies pain with palpation PT-OP-K Range of Motion Start: 02/23/22 12:30 Freq: Status: Active Protocol: Document 03/03/22 08:15 AMB (Rec: 03/03/22 09:18 AMB [id number]) Lumbar Spine Range of Motion Lumbar Spine Active Degrees Testing Position Standing Flexion 40 Extension 20 Lateral Flexion Left 15 Lateral Flexion Right 10 PT-OP-Q Treatments Start: 02/23/22 12:30 Freq: Status: Active Protocol: Document 03/30/22 11:15 AMB (Rec: 03/30/22 12:57 AMB [id number]) Gym Equipment Shuttle Balance BLUE Comments WBOS-- 5 min EO just to get balanced cued feeling feet, then ok to try with head turns , but this is challenging Therapeutic Exercises Sitting Exercises toe tapping Reps/Minutes 30 Comments to work on tib ant strength Standing Exercises heel raise Reps/Minutes 10 box pick up worker Standing Exercise Name squat to pick up worker wt then pencil floor Resistance 10#> 20# Reps/Minutes 10 Comments focus on mechanics with coming up from squat sit to stand Standing Exercise Name Continue cue hip hinge Equipment Used mesh chair, arms across chest Reps/Minutes x10 Comments arms across chest, cued slow hip hinge all way chair Gait Training Gait Activity walking with head turn Comments increased veering- encouraged push off with toes Neuro Re-Education Treatment Balance Activities single leg stance Surface firm Equipment corner back, chair front Comments 3-5 seconds eyes open tapping down with other foot as needed partial tandem Surface firm Equipment corner back, chair front Comments EC arms across chest: 30s stab PT-OP-T Assessment and Plan Start: 02/23/22 12:30 Freq: Status: Active Protocol: Document 03/30/22 11:18 AMB (Rec: 03/30/22 12:03 AMB [id number]) Physical Therapy Assessment Goals Three Impairment Balance Short Term Goal (STG) Javi will stand on one leg for 8 seconds to show improved static balance. STG Duration 4 weeks Two Impairment Pain Short Term Goal (STG) Javi will unload the dance studio manager with good body mechanics and without an increase in baseline pain. STG Duration 4 weeks Assisted Goal (LTG) Javi will perform all bed mobility without an increase in pain. LTG Duration 8 weeks One Impairment Strength Short Term Goal (STG) Javi will be independent with a HEP to improve his strength and range of motion. STG Duration 4 weeks Assessment Summary Assessment Feels like I'm veering left when walking. worked on gait with headturns today to overtrain feeling of being pulled. Encouraged pt's HEP to work on strengthening and ROM every day and can pick and choose balance exercises and do some every day, but doesn't have to do every single balance exercise daily. Physical Therapy Plan Next Visit Focus/Plan Next Note Type Progress Note Next Visit Plan 10th visit next visit
--- NOTE | 2022-04-08 16:01 | PT.OTN ---
Current Diagnoses Spondylolysis, lumbar region (04/08/22) Spondylosis without myelopathy or radiculopathy, lumbar region (04/08/22) Low back pain, unspecified (04/08/22) Wedge compression fracture of first lumbar vertebra, initial encounter for closed fracture (04/08/22) Physical Therapy Treatment Note PT-OP-A Visit Information Start: 02/23/22 12:30 Freq: Status: Active Protocol: Document 04/08/22 14:32 AMB (Rec: 04/08/22 15:53 AMB [id number]) Out-Patient Physical Therapy Visit Information Visit Information Visit Type Progress Note Visit Start Time 14:30 Visit Stop Time 15:15 Total Visit Minutes 45 Visit Number 10 PT-OP-B Current Condition Start: 02/23/22 12:30 Freq: Status: Active Protocol: Document 03/03/22 08:20 AMB (Rec: 03/03/22 08:39 AMB [id number]) Current Condition History of Current Condition Onset Date chronic Current Complaints low back pain History of Current Condition When I first get up out of bed , difficult to straighten up. Bending over and lifting increases pain significantly. 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 Stairs are concerning with balance. Prior Treatments and Tests MRI: 02/04/22: L2-3 and L3-L4 moderate to severe central canal narrowing with slight compression of cauda equina. Severe bilateral L3L4 and L5S1 foraminal narrowing with compression of L3 and L5 nerve roots. Future Testing and Treatments Planned Going to see Dr. Monroy tomorrow Prior Functional Status Baseline Function- ADL's Independent Baseline Function- Mobility Independent Current Functional Impairments (Reported) Functional Limitations- ADL's Stiffness AM that limits bed mobility and sit to stand, difficulty bending and lifting , concern re balance Personal Factors Other Personal Factors That May Effect DM I, L shoulder dislocation Therapy/Recovery history, does have a glucose monitor on stomach, seizure history. PT-OP-C Subjective Start: 02/23/22 12:30 Freq: Status: Active Protocol: Document 04/08/22 14:32 AMB (Rec: 04/08/22 15:53 AMB [id number]) OP-PT Subjective Patient Comments Patient Comments Javi continues to have pain in the morning, overall pain is slightly better. PT-OP-G Mobility & Gait Start: 02/23/22 12:30 Freq: Status: Active Protocol: Document 03/03/22 08:15 AMB (Rec: 03/03/22 09:44 AMB [id number]) OP Mobility Evaluation Bed Mobility Supine to and from Sit gets out of bed from right sidelying, does have pain in R QL with sidelying to sit PT-OP-J Posture/Palpation/Skin Start: 02/23/22 12:30 Freq: Status: Active Protocol: Document 03/03/22 08:15 AMB (Rec: 03/03/22 09:44 AMB [id number]) Posture Evaluation Comments Posture Comments Right shoulder high in standing, right scapula more prominent with forward flexion , increased lumbar lordosis/ thoracic kyphosis in standing Palpation Assessment Location One Palpation Location lumbothoracic Palpation Details stiffness with PAs tension and pain at R QL>L, tension at paraspinals bilateral but pt denies pain with palpation PT-OP-K Range of Motion Start: 02/23/22 12:30 Freq: Status: Active Protocol: Document 03/03/22 08:15 AMB (Rec: 03/03/22 09:18 AMB [id number]) Lumbar Spine Range of Motion Lumbar Spine Active Degrees Testing Position Standing Flexion 40 Extension 20 Lateral Flexion Left 15 Lateral Flexion Right 10 PT-OP-Q Treatments Start: 02/23/22 12:30 Freq: Status: Active Protocol: Document 04/08/22 15:59 AMB (Rec: 04/08/22 16:01 AMB [id number]) Gym Equipment Shuttle Balance BLUE Details fwd- then lateral Comments WBOS-- 5 min EO just to get balanced cued feeling feet, lateral was challenging, but able to improve with time Therapeutic Exercises Sitting Exercises therapy ball Sitting Exercise Name marching, then alternating march and UE flex Reps/Minutes 5 min Standing Exercises box sampler pickup Standing Exercise Name squat to sampler pickup wt then pencil floor Resistance 10#> 20# Reps/Minutes 10 Comments focus on mechanics with coming up from squat wall squat Standing Exercise Name HEP reviewed Equipment Used arms across chest, glide onwall Reps/Minutes 5x5 Comments HEP: 45 degrees- with therapy ball Neuro Re-Education Treatment Balance Activities single leg stance Surface firm Equipment corner back, chair front Comments 3-5 seconds eyes open tapping down with other foot as needed PT-OP-T Assessment and Plan Start: 02/23/22 12:30 Freq: Status: Active Protocol: Document 04/08/22 14:32 AMB (Rec: 04/08/22 15:53 AMB [id number]) Physical Therapy Assessment Goals Three Impairment Balance Short Term Goal (STG) Javi will stand on one leg for 8 seconds to show improved static balance.--3-5 seconds STG Duration 4 weeks Two Impairment Pain Short Term Goal (STG) Javi will unload the functional architect with good body mechanics and without an increase in baseline pain. STG Duration MET [facility] Goal (LTG) Javi will perform all bed mobility without an increase in pain. LTG Duration 8 weeks One Impairment Strength Short Term Goal (STG) Javi will be independent with a HEP to improve his strength and range of motion. STG Duration 4 weeks Assessment Summary Assessment Overall, Javi's balance is slowly improving, and body mechanics is signficantly improving, but his pain in the morning continues. Physical Therapy Plan Next Visit Focus/Plan Next Note Type Treatment Note Next Visit Plan Pt feels like he will be ready for discharge in a few more visits
--- NOTE | 2022-04-14 13:45 | PT.OTN ---
Current Diagnoses Spondylolysis, lumbar region (04/14/22) Spondylosis without myelopathy or radiculopathy, lumbar region (04/14/22) Low back pain, unspecified (04/14/22) Wedge compression fracture of first lumbar vertebra, initial encounter for closed fracture (04/14/22) Physical Therapy Treatment Note PT-OP-A Visit Information Start: 02/23/22 12:30 Freq: Status: Active Protocol: Document 04/14/22 13:03 SP (Rec: 04/14/22 14:14 SP [id number]) Out-Patient Physical Therapy Visit Information Visit Information Visit Type Treatment Note Visit Note Possibe DC in few visits. Visit Start Time 13:03 Visit Stop Time 13:45 Total Visit Minutes 42 Visit Number [address] BAILIFF Visits 1 PT-OP-B Current Condition Start: 02/23/22 12:30 Freq: Status: Active Protocol: Document 03/03/22 08:20 AMB (Rec: 03/03/22 08:39 AMB [id number]) Current Condition History of Current Condition Onset Date chronic Current Complaints low back pain History of Current Condition When I first get up out of bed , difficult to straighten up. Bending over and lifting increases pain significantly. 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 Stairs are concerning with balance. Prior Treatments and Tests MRI: 02/04/22: L2-3 and L3-L4 moderate to severe central canal narrowing with slight compression of cauda equina. Severe bilateral L3L4 and L5S1 foraminal narrowing with compression of L3 and L5 nerve roots. Future Testing and Treatments Planned Going to see Dr. Monroy tomorrow Prior Functional Status Baseline Function- ADL's Independent Baseline Function- Mobility Independent Current Functional Impairments (Reported) Functional Limitations- ADL's Stiffness AM that limits bed mobility and sit to stand, difficulty bending and lifting , concern re balance Personal Factors Other Personal Factors That May Effect DM I, L shoulder dislocation Therapy/Recovery history, does have a glucose monitor on stomach, seizure history. PT-OP-C Subjective Start: 02/23/22 12:30 Freq: Status: Active Protocol: Document 04/14/22 13:03 SP (Rec: 04/14/22 14:14 SP [id number]) OP-PT Subjective Patient Comments Patient Comments Pt reports did some yard work raking and loading yard waste with pitch fork and lifting to put on back trunk. He states back is little sore. He reports wants to be able to tie shoes in standing outside if needed and throw ball good back support and finds is off balance and ball not going to tree target as trying to hit. PT-OP-G Mobility & Gait Start: 02/23/22 12:30 Freq: Status: Active Protocol: Document 03/03/22 08:15 AMB (Rec: 03/03/22 09:44 AMB [id number]) OP Mobility Evaluation Bed Mobility Supine to and from Sit gets out of bed from right sidelying, does have pain in R QL with sidelying to sit PT-OP-J Posture/Palpation/Skin Start: 02/23/22 12:30 Freq: Status: Active Protocol: Document 03/03/22 08:15 AMB (Rec: 03/03/22 09:44 AMB [id number]) Posture Evaluation Comments Posture Comments Right shoulder high in standing, right scapula more prominent with forward flexion , increased lumbar lordosis/ thoracic kyphosis in standing Palpation Assessment Location One Palpation Location lumbothoracic Palpation Details stiffness with PAs tension and pain at R QL>L, tension at paraspinals bilateral but pt denies pain with palpation PT-OP-K Range of Motion Start: 02/23/22 12:30 Freq: Status: Active Protocol: Document 03/03/22 08:15 AMB (Rec: 03/03/22 09:18 AMB [id number]) Lumbar Spine Range of Motion Lumbar Spine Active Degrees Testing Position Standing Flexion 40 Extension 20 Lateral Flexion Left 15 Lateral Flexion Right 10 PT-OP-Q Treatments Start: 02/23/22 12:30 Freq: Status: Active Protocol: Document 04/14/22 13:03 SP (Rec: 04/14/22 14:14 SP [id number]) Therapeutic Exercises Standing Exercises resisted side stepping Standing Exercise Name added to HEP Resistance TB #3 Reps/Minutes 2x5 reps B Comments cued tall post/scap depress, controlled eccentric step LS/ TS rotation resisted throwing Standing Exercise Name added to HEP self request Side right Resistance TB #3 vs tennis ball and 2.2 yellow wt ball to target Reps/Minutes multiple throws box picker tender helper Standing Exercise Name focus on mechanics with coming up from squat Resistance 2x4# leg wts in flat sheet ( assimulate yard waste on tarp) Equipment Used cued keep item close to body Reps/Minutes x4 Comments cued bend at hips, scaps back deeper squat to reach, legs to lift wall squat Standing Exercise Name squat to chair arms across chest Equipment Used hip hinge to chair seat Reps/Minutes 2x5 reps Comments cued scap retraction to allow straight back as bend forward. Self-Care/Home Management Treatment Education Patient Education Body Mechanics,Pain Management ,Posture,Safety Other Education Time spent on discussing back posture w/ yard stick hip hinge then squat to chair target buttocks back then deeper to lift items on sheet off floor. Same position to tie shoes WBOS awareness but safety if off balance to sit on chair. *Initiated resisted side stepping and trunk rotation for mobility follow through throwing for back phong mechanics. PT-OP-T Assessment and Plan Start: 02/23/22 12:30 Freq: Status: Active Protocol: Document 04/14/22 13:03 SP (Rec: 04/14/22 14:14 SP [id number]) Physical Therapy Assessment Goals Three Impairment Balance Short Term Goal (STG) Javi will stand on one leg for 8 seconds to show improved static balance.--3-5 seconds STG Duration 4 weeks Two Impairment Pain Short Term Goal (STG) Javi will unload the provider relations advocate with good body mechanics and without an increase in baseline pain. STG Duration MET [facility] Goal (LTG) Javi will perform all bed mobility without an increase in pain. LTG Duration 8 weeks One Impairment Strength Short Term Goal (STG) Javi will be independent with a HEP to improve his strength and range of motion. STG Duration 4 weeks Assessment Summary Assessment Pt improved understanding scap retraction and hip hinge w/ dowel today, continued cues for bending deeper but not mid back round for items off floor. Improved assimualte tie shoes better stability post lifting mechanics. Provided throwing and resisted side stepping for mechanics trunk rotation full through motion to through and back/shld alignment with core facilitation noted. Physical Therapy Plan Frequency and Duration Frequency of Treatment 2x/Week Duration of Treatment 8 weeks Plan of Care Start Date 03/03/22 Plan of Care End Date 04/28/22 Therapeutic Interventions Therapeutic Interventions Balance Training,Gait Training ,Home Exercise Program,Manual Therapy,Neuromuscular Re- education,Self-Care/Home Management,Soft Tissue Mobilization,Therapeutic Activities,Therapeutic Exercises Modalities Cold Pack/Ice Massage,Electric Stimulation,Hot Packs Next Visit Focus/Plan Next Note Type Treatment Note Next Visit Plan Pt feels like he will be ready for discharge in a few more visits
--- NOTE | 2022-04-21 13:10 | PT-OP ANOTE ---
Pt did not show for today's appt, called pt and he stated selected no on televox yesterday and assumed it cancelled his appt. Pt confirmed next and last appt 04/28 with PT, ready for HEP review and DC on own. REWIND OPERATOR spoke with schedulers and appt was cancelled.
--- NOTE | 2022-05-03 09:47 | PT.OPDS ---
Current Diagnoses Spondylolysis, lumbar region (04/14/22) Spondylosis without myelopathy or radiculopathy, lumbar region (04/14/22) Low back pain, unspecified (04/14/22) Wedge compression fracture of first lumbar vertebra, initial encounter for closed fracture (04/14/22) Visit Care Team Role Provider Type Radha Perez MD Attending Provider Physician Family Provider Primary Care Provider Referring Provider Specialty: [facility] Practice Address: [address] [place] [address], [facility] [place], [facility] Email: [email or web address] Visit Number Visit Number 11 Discharge Summary PT-OP-B Current Condition Start: 02/23/22 12:30 Freq: Status: Active Protocol: Document 03/03/22 08:20 AMB (Rec: 03/03/22 08:39 AMB [id number]) Current Condition History of Current Condition Onset Date chronic Current Complaints low back pain History of Current Condition When I first get up out of bed , difficult to straighten up. Bending over and lifting increases pain significantly. 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 Stairs are concerning with balance. Prior Treatments and Tests MRI: 02/04/22: L2-3 and L3-L4 moderate to severe central canal narrowing with slight compression of cauda equina. Severe bilateral L3L4 and L5S1 foraminal narrowing with compression of L3 and L5 nerve roots. Future Testing and Treatments Planned Going to see Dr. Monroy tomorrow Prior Functional Status Baseline Function- ADL's Independent Baseline Function- Mobility Independent Current Functional Impairments (Reported) Functional Limitations- ADL's Stiffness AM that limits bed mobility and sit to stand, difficulty bending and lifting , concern re balance Personal Factors Other Personal Factors That May Effect DM I, L shoulder dislocation Therapy/Recovery history, does have a glucose monitor on stomach, seizure history. PT-OP-C Subjective Start: 02/23/22 12:30 Freq: Status: Active Protocol: Document 04/14/22 13:03 SP (Rec: 04/14/22 14:14 SP [id number]) OP-PT Subjective Patient Comments Patient Comments Pt reports did some yard work raking and loading yard waste with pitch fork and lifting to put on back trunk. He states back is little sore. He reports wants to be able to tie shoes in standing outside if needed and throw ball good back support and finds is off balance and ball not going to tree target as trying to hit. PT-OP-G Mobility & Gait Start: 02/23/22 12:30 Freq: Status: Active Protocol: Document 03/03/22 08:15 AMB (Rec: 03/03/22 09:44 AMB [id number]) OP Mobility Evaluation Bed Mobility Supine to and from Sit gets out of bed from right sidelying, does have pain in R QL with sidelying to sit PT-OP-J Posture/Palpation/Skin Start: 02/23/22 12:30 Freq: Status: Active Protocol: Document 03/03/22 08:15 AMB (Rec: 03/03/22 09:44 AMB [id number]) Posture Evaluation Comments Posture Comments Right shoulder high in standing, right scapula more prominent with forward flexion , increased lumbar lordosis/ thoracic kyphosis in standing Palpation Assessment Location One Palpation Location lumbothoracic Palpation Details stiffness with PAs tension and pain at R QL>L, tension at paraspinals bilateral but pt denies pain with palpation PT-OP-K Range of Motion Start: 02/23/22 12:30 Freq: Status: Active Protocol: Document 03/03/22 08:15 AMB (Rec: 03/03/22 09:18 AMB [id number]) Lumbar Spine Range of Motion Lumbar Spine Active Degrees Testing Position Standing Flexion 40 Extension 20 Lateral Flexion Left 15 Lateral Flexion Right 10 PT-OP-T Assessment and Plan Start: 02/23/22 12:30 Freq: Status: Active Protocol: Document 05/03/22 09:45 AMB (Rec: 05/03/22 09:47 AMB [id number]) Physical Therapy Assessment Goals Three Impairment Balance Short Term Goal (STG) Javi will stand on one leg for 8 seconds to show improved static balance.--3-5 seconds STG Duration 4 weeks Two Impairment Pain Short Term Goal (STG) Javi will unload the robotic weld technician with good body mechanics and without an increase in baseline pain. STG Duration MET Urban Planner Goal (LTG) Javi will perform all bed mobility without an increase in pain. LTG Duration 8 weeks One Impairment Strength Short Term Goal (STG) Javi will be independent with a HEP to improve his strength and range of motion. STG Duration 4 weeks Assessment Summary Assessment Pt called to cancel last scheduled appointment. He had met some of his goals, but not all of them, but he was ready for discharge. He did have continued pain at his last appointment, but had improved with his body mechanics.
== END 2022-05-05 13:24 ==
LOC: PHYS 13:00
PROVIDERS: Family Provider Family Medicine; PCP Family Medicine; Referring Provider Family Medicine; Visit Provider Family Medicine
DX: M43.06 Spondylolysis, lumbar region (principal); M47.816 Spondylosis without myelopathy or radiculopathy, lumbar region; M54.50 Low back pain, unspecified; S32.010A Wedge compression fracture of first lumbar vertebra, initial encounter for closed fracture
CPT/HCPCS: 97110; 97112; 97140; 97161; 97535

== ENCOUNTER → 2022-07-05 10:44 | Outpatient (CLI) | payer MEDICARE, SELFPAY ==
[2022-07-05 13:18] LABS: Hemoglobin A1C% w Est Avg Glu 8.1 % (4.0-6.0)
[2022-07-05 13:38] LABS: Free T4, Direct Thyroxine 1.71 ng/dL (0.78-2.19)
[2022-07-05 13:55] LABS: Thyroid Stimulating Hormone < 0.015 uIU/mL (0.47-4.68)
== END ==
PROVIDERS: Family Provider Family Medicine; PCP Family Medicine; Referring Provider Internal Medicine Endocrinology, Diabetes & Metabolism; Visit Provider Internal Medicine Endocrinology, Diabetes & Metabolism
DX: E10.65 Type 1 diabetes mellitus with hyperglycemia (principal)
CPT/HCPCS: 36415; 83036; 84439; 84443

== ENCOUNTER → 2022-10-01 08:14 | Outpatient (CLI) | payer MEDICARE, SELFPAY ==
[2022-10-01 10:01] LABS: Hemoglobin A1C% w Est Avg Glu 7.9 % (4.0-6.0)
[2022-10-01 10:15] LABS: Alanine Aminotransferase 23 IU/L (<50); Albumin 4.1 g/dL (3.5-5.0); Albumin Globulin Ratio 1.5 (1.0-2.8); Alkaline Phosphatase 63 U/L (38-126); Aspartate Aminotransferase 25 IU/L (17-59); BUN Creatinine Ratio 18.4 (6-22); Blood Urea Nitrogen 18 mg/dL (9-20); Calcium 8.9 mg/dL (8.4-10.2); Carbon Dioxide 33 mmol/L (22-32); Chloride 97 mmol/L (98-107); Estimated Glomerular Filt Rate > 60 mL/min (>60); Globulin 2.8 g/dL (1.7-4.1); Glucose 116 mg/dL (80-110); HEMOLYSIS < 15 (0-50); Potassium 4.3 mmol/L (3.4-5.1); Sodium 137 mmol/L (137-145); Total Protein 6.9 g/dL (6.3-8.2)
[2022-10-01 10:26] LABS: Free T4, Direct Thyroxine 1.99 ng/dL (0.78-2.19)
[2022-10-01 10:40] LABS: Thyroid Stimulating Hormone < 0.015 uIU/mL (0.47-4.68)
[2022-10-01 10:43] LABS: Testosterone 153 ng/dL (71.8-623)
== END ==
PROVIDERS: Family Provider Family Medicine; PCP Family Medicine; Referring Provider Internal Medicine Endocrinology, Diabetes & Metabolism; Visit Provider Internal Medicine Endocrinology, Diabetes & Metabolism
DX: E03.9 Hypothyroidism, unspecified (principal); E10.69 Type 1 diabetes mellitus with other specified complication
CPT/HCPCS: 36415; 80053; 83036; 84403; 84439; 84443

== ENCOUNTER → 2023-02-24 08:36 | Outpatient (CLI) | payer MEDICARE, SELFPAY ==
[2023-02-24 09:55] LABS: Add Manual Diff / Slide Review NO; Basophils Absolute Auto 100 /uL (0-100); Basophils Percent Auto 0.9 % (0-2); Eosinophils Absolute Auto 500 /uL (0-450); Eosinophils Percent Auto 6.6 % (2-4); Hematocrit 38.4 % (41-53); Lymphocytes Absolute Auto 1100 /uL (1100-4500); Mean Corpuscular HGB Conc 33.8 % (30-36); Mean Corpuscular Hemoglobin 31.2 PG (26-34); Mean Corpuscular Volume 92.3 fL (80-100); Monocytes Absolute Auto 700 /uL (0-900); Monocytes Percent Auto 10.3 % (3-14); Neutrophils Absolute Auto 4700 /uL (1500-7000); Neutrophils Percent Auto 66.2 % (50-75); Platelet Count 262 X10^3/uL (150-400); Red Blood Cell Count 4.16 X10^6/uL (4.5-5.9); Red Cell Distribution Width 13.6 % (11.6-14.8); White Blood Cell Count 7.1 X10^3/uL (4.5-11.0)
[2023-02-24 10:23] LABS: Alanine Aminotransferase 24 IU/L (<50); Albumin 3.7 g/dL (3.5-5.0); Albumin Globulin Ratio 1.2 (1.0-2.8); Alkaline Phosphatase 59 U/L (38-126); Aspartate Aminotransferase 30 IU/L (17-59); BUN Creatinine Ratio 25.8 (6-22); Bilirubin Total 0.5 mg/dL (0.2-1.3); Blood Urea Nitrogen 24 mg/dL (9-20); Calcium 9.1 mg/dL (8.4-10.2); Carbon Dioxide 35 mmol/L (22-32); Chloride 98 mmol/L (98-107); Cholesterol 153 mg/dL (140-199); Estimated Glomerular Filt Rate > 60 mL/min (>60); Glucose 139 mg/dL (80-110); HDL Cholesterol 75 mg/dL (40-60); HEMOLYSIS < 15 (0-50); LDL Cholesterol Calculated 66 mg/dL (<100); Potassium 4.3 mmol/L (3.4-5.1); Sodium 135 mmol/L (137-145); Total Protein 6.7 g/dL (6.3-8.2); Triglycerides 59 mg/dL (35-150)
[2023-02-24 10:52] LABS: TSH w/ Reflex to FT4 0.03 uIU/mL (0.47-4.68)
[2023-02-24 11:18] LABS: Free T4, Direct Thyroxine 1.46 ng/dL (0.78-2.19)
== END ==
PROVIDERS: Family Provider Family Medicine; PCP Family Medicine; Referring Provider Family Medicine; Visit Provider Family Medicine
DX: E03.9 Hypothyroidism, unspecified (principal); E10.9 Type 1 diabetes mellitus without complications; D64.9 Anemia, unspecified
CPT/HCPCS: 36415; 80053; 80061; 84439; 84443; 85025

== ENCOUNTER 2023-06-27 09:57 | Day surgery (SDC) | payer MEDICARE, SELFPAY ==
[2023-06-27] VITALS (8 sets, daily range): BP systolic 86–158; BP diastolic 47–72; PULSE 67–71; RESP 12–16; TEMP 36.3–36.8; O2SAT 95–100; BMI 23.0
--- NOTE | 2023-06-27 | PATH_ITS ---
[facility] Accession Number: [id number] No. of containers..01 Tissue . 01 Material submitted: . gastrointestinal site - ANTRUM BIOPSY . 01 Diagnosis: Antrum, Biopsy: Gastric antral mucosa with no diagnostic abnormality. No evidence of Helicobacter organisms on H/E stain. Negative for intestinal metaplasia. Negative for dysplasia or malignancy. MRV 07/04/2023 1328 Local . 01 Electronically signed: . Adolfo Lan MD, PhD, Pathologist NPI- [id number] . 01 Gross description: . ANTRUM BIOPSY: Received in formalin is 1 fragment(s) of pinon, soft tissue measuring 0.3 x 0.3 x 0.2 cm submitted entirely in 1 cassette(s) /KATHY 06/30/2023 0031 Local . 01 Pathologist provided ICD-10: R10.13 . 01 CPT . 992099 Specimen Comment: A courtesy copy of this report has been sent to [phone] Performed at: 01 [facility] [address] [place] [address], [place], [place] [id number] MD Malik So MD Phone: [phone]
[2023-06-27] MEDS: LACTATED RINGERS 1,000 ML 42 ML IV (10:39)
--- NOTE | 2023-06-27 11:06 | PM.HP.1 ---
History of Present Illness History of Present Illness Date Patient Seen: 06/27/23 Time Patient Seen: 11:06 Chief complaint: EGD w/poss bx Narrative: I reviewed the recent clinic note. Patient is back on his PPI. He is here for surveillance EGD. [facility] Medical History Acute low back pain Compression fracture of L1 lumbar vertebra DM type 1 (diabetes mellitus, type 1) Epilepsy Facet arthropathy, lumbar Hx of benign neoplasm of pituitary gland Hypothyroidism Lumbar pars defect Surgical History H/O shoulder replacement History of surgical removal of pituitary gland Family History Unknown No pertinent family history Social History household members: spouse Smoking Status: Never smoker second hand exposure: No alcohol intake: current substance use type: does not use Meds Home Medications and Allergies Home Medications Medication Instructions Recorded Confirmed Type multivitamin 1 tab PO DAILY ##0 12/11/06 06/27/23 History TESTOSTERONE ENANTHATE 0.5 cc IM EVERY 2 WKS ##0 11/01/12 02/21/23 History (DELATESTRYL) cholecalciferol (vitamin D3) 25 25 mcg PO DAILY ##0 11/01/12 06/27/23 History mcg (1,000 unit) tablet (Vitamin D3) insulin glargine 100 unit/mL 4 unit SQ DAILY #0 mL 11/01/12 06/27/23 History subcutaneous solution (Lantus U-100 Insulin) insulin lispro 100 unit/mL See Rx Instructions .Route 11/01/12 06/27/23 History subcutaneous cartridge (Humalog .COMPLEX ##0 U-100 Insulin) atorvastatin 20 mg tablet 20 mg PO DAILY 06/11/19 06/27/23 History lamotrigine 200 mg tablet 350 mg PO BID #0 tabs 05/19/20 06/27/23 History (Lamictal) prednisone 1 mg tablet 4 mg PO DAILY 05/19/20 06/27/23 History diabetic shoes #1 ea 01/27/22 02/21/23 Rx levothyroxine 25 mcg tablet 25 mcg PO DAILY 06/27/23 06/27/23 History Allergies Allergy/AdvReac Type Severity Reaction Status Date / Time No Known Drug Allergies Allergy Verified 06/27/23 10:15 Review of Systems Review of Systems ROS: Yes All systems reviewed with the patient and are negative except as otherwise documented Exam Vital Signs (past 8 hours): - 06/27/23 10:24 Temperature 98.0 F Pulse Rate 71 Respiratory Rate 12 Blood Pressure 158/72 H Pulse Oximetry 98 Oxygen Delivery Method Room Air Oxygen Delivery Method Room Air Const General: cooperative HENMT Head: normal to inspection Eyes General: appearance normal, both eyes and all related structures Neck Neck: normal visual inspection Chest Chest: normal inspection of the chest Resp Effort & Inspection: normal respiratory effort Cardio Rate: regular rate GI Inspection: normal to inspection Skin General: no rashes or lesions noted Neuro General: patient alert and patient awake Extrem General: normal to inspection and no pedal edema Psych Appearance: grossly normal Assessment & Plan Assessment & Plan narrative: 78-year-old male with a history of hiatal hernia, Vincent's erosions, upper GI bleeding, possible Barretts esophagus, possible gastroparesis (admits to chronically elevated blood sugars). Repeat EGD is pursued today.
--- NOTE | 2023-06-27 11:07 | PM.PREOP ---
Pre-operative Note Interval Note History & Physical reviewed/Exam performed by Physician: Yes Changes to H&P: No ASA Class (for procedural sedation): II
[2023-06-27] MEDS: INSULIN REGULAR 100 UNIT/ML 3 ML VIAL SUBCUT (11:12)
--- NOTE | 2023-06-27 11:49 | P.OP.EGD_ITS ---
Operative Date/Time/Diagnoses Date of procedure: 06/27/23 Time of procedure: 11:50 Pre-op diagnosis: Gastric ulceration, Vincent's erosions, possible gastroparesis, possible Barretts Post-op diagnosis: same Procedure & Clinicians Study performed: EGD with biopsies Same procedure as scheduled: Yes Indications: Gastric ulceration, Vincent's erosions, possible gastroparesis, possible Barretts Surgeon: Parmjit Mosley Procedure Notes SCOAP/Timeout: DONE Procedure in detail: AFTER THE RISKS AND BENEFITS WERE EXPLAINED, WRITTEN AND VERBAL INFORMED CONSENT WAS OBTAINED. THE PATIENT WAS BROUGHT INTO THE PROCEDURE ROOM AND PLACED INTO THE LEFT LATERAL DECUBITUS POSITION. Please see anesthesia notes for sedation details. THE SCOPE WAS INTRODUCED INTO THE MOUTH THROUGH THE BITE BLOCK AND ADVANCED UNDER DIRECT VISUALIZATION TO THE 2ND PORTION OF THE DUODENUM. THE SCOPE WAS SLOWLY WITHDRAWN CAREFULLY EXAMINING THE MUCOSA FOR ANY DEFECTS OR LESIONS. RETROFLEXED VIEWS WERE ACCOMPLISHED IN THE STOMACH. THE STOMACH WAS DECOMPRESSED, THE SCOPE WAS THEN REMOVED FROM THE PATIENT WHO TOLERATED THE PROCEDURE WELL. Sedation minutes: 10 Complications: none Impression: 1. Duodenum: This was visually normal from the bulb through to the 2nd portion. 2. Stomach: No ulcers identified throughout. No mass lesions no outlet ob struction. No evidence of any retained food debris. Minimal gastropathy was appreciated and I therefore took biopsies from the antrum for exclusion of H pylori. Retroflexed views of the LES disclosed sliding hiatal hernia but I did not identify any Vincent's erosions or ulcers. 3. Esophagus: The squamocolumnar junction correlated with the top of the gastric folds. GEJ was at roughly 39 cm from the incisors. The diaphragmatic pinchcock was at about 41 cm from the incisors. I did not identify Vincent's erosions. Visually there was nothing that suggested Barretts. The patient did however have evidence of LA grade C erosive esophagitis. The remainder of the esophagus was unremarkable. Endoscopic diagnosis 1. Hiatal hernia 2. LA grade C erosive esophagitis 3. Mild gastropathy Post-procedure Plan for aftercare: 1. Await histopathology. 2. Follow-up in primary care for improved glycemic control. 3. Continue anti-reflux therapy in light of the findings in the distal esophagus today. Disposition: PACU
--- NOTE | 2023-06-27 12:03 | SUR.PHASEI ---
Per Hazel SCHMITT. Pt ok for discharge with CBG less than 300. reports he usually runs in the 200 at home.
== END 2023-06-27 12:54 | disposition home or self-care (01) ==
PROVIDERS: Family Provider Family Medicine; PCP Family Medicine; Referring Provider Internal Medicine Gastroenterology; Visit Provider Internal Medicine Gastroenterology
PROC: 0DJ08ZZ Inspection of Upper Intestinal Tract, Via Natural or Artificial Opening Endoscopic (ICD-10-PCS; CPT 43235; principal; 2023-06-27 11:00)
DX: K20.80 Other esophagitis without bleeding (principal); K44.9 Diaphragmatic hernia without obstruction or gangrene; K31.9 Disease of stomach and duodenum, unspecified
CPT/HCPCS: 43239; 82962; J1815; J2704

== ENCOUNTER → 2024-03-05 10:16 | Outpatient (CLI) | payer MEDICARE, SELFPAY ==
--- NOTE | 2024-03-05 10:19 | DI.RAD.S_ITS ---
PROCEDURE: XR HAND RT MIN 3V INDICATIONS: hand pain TECHNIQUE: 3 views of the hand(s) acquired. COMPARISON: [facility], CR, XR HAND RT MIN 3V, 06/11/2019, 11:11. [facility], CR, XR HAND 1 OR 2 VIEWS BILATERAL, 03/08/2022, 13:20. FINDINGS: Bones: No fractures or dislocations. Again seen is polyarticular and joint space narrowing with periarticular osteophyte formation, severe involving the 1st and 2nd MCP joints, 1st interphalangeal joint and 3rd distal interphalangeal joint. Juxtacortical lucencies involving the 1st MTP as well as interphalangeal joints. Carpal bones are normally aligned. No suspicious bony lesions. Soft tissues: No suspicious soft tissue calcifications. IMPRESSION: 1. Diffuse joint degeneration as described above. Juxta-articular lucencies are seen which may represent subchondral cystic changes versus bony erosions. This is overall similar in appearance to prior. 2. No acute osseous abnormalities. Dictated by: Trevin Méndez M.D. on 03/05/2024 at 12:03 Approved by: Trevin Méndez M.D. on 03/05/2024 at 12:05
== END ==
PROVIDERS: Family Provider Family Medicine; PCP Family Medicine; Referring Provider Family Medicine; Visit Provider Family Medicine
DX: M19.041 Primary osteoarthritis, right hand (principal); M79.641 Pain in right hand
CPT/HCPCS: 73130

== ENCOUNTER → 2024-03-06 07:40 | Outpatient (CLI) | payer MEDICARE, SELFPAY ==
[2024-03-06 09:12] LABS: Add Manual Diff / Slide Review NO; Basophils Absolute Auto 100 /uL (0-100); Basophils Percent Auto 0.8 % (0-2); Eosinophils Absolute Auto 400 /uL (0-450); Eosinophils Percent Auto 6.4 % (2-4); Hematocrit 41.5 % (41-53); Hemoglobin 13.8 g/dL (13.5-17.5); Lymphocytes Absolute Auto 1400 /uL (1100-4500); Lymphocytes Percent Auto 20.7 % (25-40); Mean Corpuscular HGB Conc 33.2 % (30-36); Mean Corpuscular Hemoglobin 31.1 PG (26-34); Mean Corpuscular Volume 93.7 fL (80-100); Monocytes Absolute Auto 800 /uL (0-900); Monocytes Percent Auto 11.3 % (3-14); Neutrophils Absolute Auto 4200 /uL (1500-7000); Neutrophils Percent Auto 60.8 % (50-75); Platelet Count 270 X10^3/uL (150-400); Red Blood Cell Count 4.43 X10^6/uL (4.5-5.9); White Blood Cell Count 6.9 X10^3/uL (4.5-11.0)
[2024-03-06 09:37] LABS: Alanine Aminotransferase 19 IU/L (<50); Albumin 3.6 g/dL (3.5-5.0); Albumin Globulin Ratio 1.3 (1.0-2.8); Alkaline Phosphatase 58 U/L (38-126); Aspartate Aminotransferase 25 IU/L (17-59); BUN Creatinine Ratio 25.9 (6-22); Bilirubin Total 0.7 mg/dL (0.2-1.3); Blood Urea Nitrogen 29 mg/dL (9-20); Calcium 9.4 mg/dL (8.4-10.2); Carbon Dioxide 30 mmol/L (22-32); Chloride 101 mmol/L (98-107); Cholesterol 150 mg/dL (140-199); Estimated Glomerular Filt Rate > 60 mL/min (>60); Globulin 2.8 g/dL (1.7-4.1); Glucose 130 mg/dL (80-110); HDL Cholesterol 69 mg/dL (40-60); HEMOLYSIS < 15 (0-50); LDL Cholesterol Calculated 70 mg/dL (<100); Potassium 4.3 mmol/L (3.4-5.1); Sodium 136 mmol/L (137-145); Total Protein 6.4 g/dL (6.3-8.2); Triglycerides 57 mg/dL (35-150)
[2024-03-07 08:00] LABS: Hemoglobin A1C% w Est Avg Glu 7.5 % (4.0-6.0)
== END ==
LOC: LAB 07:41
PROVIDERS: Family Provider Family Medicine; PCP Family Medicine; Referring Provider Family Medicine; Visit Provider Family Medicine
DX: E10.9 Type 1 diabetes mellitus without complications (principal); Z00.00 Encounter for general adult medical examination without abnormal findings; E03.9 Hypothyroidism, unspecified
CPT/HCPCS: 36415; 80053; 80061; 83036; 85025

== ENCOUNTER → 2024-05-24 09:08 | Outpatient (CLI) | payer MEDICARE, SELFPAY | PROVIDERS: Family Provider Family Medicine; PCP Family Medicine; Referring Provider Family Medicine; Visit Provider Family Medicine | DX: R79.89 Other specified abnormal findings of blood chemistry (principal) | CPT/HCPCS: 36415; 84402; 84403 ==

== ENCOUNTER 2024-06-10 13:54 | Emergency (ER) | payer MEDICARE, SELFPAY ==
[2024-06-10 13:56] VITALS: BP 134/63; PULSE 67; RESP 16; TEMP 36.3; O2SAT 99; BMI 22.1
--- NOTE | 2024-06-10 14:04 | DI.RAD.S_ITS ---
PROCEDURE: XR CHEST 1V INDICATIONS: chest pain TECHNIQUE: One view of the chest was acquired. COMPARISON: None. FINDINGS: Surgical changes and devices: Postsurgical changes from left shoulder arthroplasty. Lungs and pleura: Lungs are clear. No pleural effusions or pneumothorax. Mediastinum: Mediastinal contours appear normal. Heart size is normal. Bones and chest wall: No suspicious bony lesions. Overlying soft tissues appear unremarkable. IMPRESSION: No acute cardiopulmonary abnormality is seen. Approved by: Júnior rSivastava M.D. on 06/10/2024 at 15:09
[2024-06-10 14:19] LABS: Add Manual Diff / Slide Review NO; Basophils Absolute Auto 100 /uL (0-100); Eosinophils Absolute Auto 400 /uL (0-450); Hematocrit 39.7 % (41-53); Hemoglobin 13.2 g/dL (13.5-17.5); Lymphocytes Absolute Auto 900 /uL (1100-4500); Lymphocytes Percent Auto 11.5 % (25-40); Mean Corpuscular HGB Conc 33.3 % (30-36); Mean Corpuscular Hemoglobin 31.3 PG (26-34); Monocytes Absolute Auto 1200 /uL (0-900); Monocytes Percent Auto 15.8 % (3-14); Neutrophils Absolute Auto 5100 /uL (1500-7000); Neutrophils Percent Auto 66.7 % (50-75); Platelet Count 229 X10^3/uL (150-400); Red Blood Cell Count 4.23 X10^6/uL (4.5-5.9); Red Cell Distribution Width 14.1 % (11.6-14.8); White Blood Cell Count 7.7 X10^3/uL (4.5-11.0)
[2024-06-10 14:27] LABS: INR 0.9 (0.9-1.3); Prothrombin Time 10.6 SECONDS (9.4-12.5)
[2024-06-10 14:29] LABS: PTT Partial Thromboplastin Tim 28 SECONDS (25.1-36.5)
--- NOTE | 2024-06-10 14:33 | EKG_ITS ---
[address] [address] Test Date: 2024-06-10 Pat Name: Javi Flores Department: Located Within [facility] Room: Gender: Male Medical Stenographer: MALATHI : 1945 Requested By: Order Number: [id number] Reading MD: Javi Yanes MD Measurements Intervals [place] Rate: 66 P: 65 UT: 200 QRS: 26 QRSD: 94 T: 50 QT: 420 QTc: 440 Interpretive Statements Normal sinus rhythm Possible Anterior infarct , age undetermined Electronically Signed On 06-10-2024 15:34:41 PDT by Javi Yanes MD
[2024-06-10 14:41] LABS: Alanine Aminotransferase 18 IU/L (<50); Albumin 3.9 g/dL (3.5-5.0); Albumin Globulin Ratio 1.5 (1.0-2.8); Alkaline Phosphatase 49 U/L (38-126); Aspartate Aminotransferase 28 IU/L (17-59); BUN Creatinine Ratio 19.7 (6-22); Bilirubin Total 0.7 mg/dL (0.2-1.3); Blood Urea Nitrogen 23 mg/dL (9-20); Calcium 8.7 mg/dL (8.4-10.2); Carbon Dioxide 34 mmol/L (22-32); Chloride 101 mmol/L (98-107); Creatine Kinase 100 U/L (55-170); Estimated Glomerular Filt Rate > 60 mL/min (>60); Globulin 2.6 g/dL (1.7-4.1); Glucose 51 mg/dL (80-110); HEMOLYSIS < 15 (0-50); Lipase 25 U/L (23-300); Magnesium 2.2 mg/dL (1.6-2.3); Potassium 3.8 mmol/L (3.4-5.1); Sodium 136 mmol/L (137-145); Total Protein 6.5 g/dL (6.3-8.2)
[2024-06-10 14:54] LABS: NT-proBNP (BNP-Adult 18+) 414 pg/mL (<450); Troponin I < 0.012 ng/mL (0.01-0.034)
[2024-06-10 16:58] VITALS: BP 156/73; PULSE 66; RESP 18; O2SAT 99
--- NOTE | 2024-06-10 18:15 | ED.DIZZY ---
HPI - Dizziness General Chief Complaint: Syncope Stated Complaint: Syncope Time Seen by Provider: 06/10/24 14:33 Source: patient, family and EMS Mode of arrival: EMS History of Present Illness HPI Narrative: 79-year-old male presents for evaluation of a brief unresponsive episode that occurred prior to arrival. Patient has a history of epilepsy, chronically on Lamictal. Patient's states that he will occasionally get breakthrough seizures, described as a brief, staring episode, that resolves after several seconds. This afternoon while sitting on a counter chair the patient had an episode where he seemed to stare off into the distance and briefly make a gurgling noise. He began to slump over and his caught him before he could fall out of the chair. subsequently called 911 as she stated she was concerned that he may be having a stroke. denies witnessing slurred speech, facial droop, weakness, or other focal abnormalities On my evaluation the patient states that he feels completely normal and ready to go home. Related Data Home Medications Medication Instructions Recorded Confirmed multivitamin 1 tab PO DAILY ##0 12/11/06 02/24/24 cholecalciferol (vitamin D3) 25 25 mcg PO DAILY ##0 11/01/12 02/24/24 mcg (1,000 unit) tablet (Vitamin D3) insulin glargine 100 unit/mL 4 unit SQ DAILY #0 mL 11/01/12 02/24/24 subcutaneous solution (Lantus U-100 Insulin) insulin lispro 100 unit/mL See Rx Instructions .Route 11/01/12 02/24/24 subcutaneous cartridge (Humalog .COMPLEX ##0 U-100 Insulin) atorvastatin 20 mg tablet 20 mg PO DAILY 06/11/19 02/24/24 lamotrigine 200 mg tablet 350 mg PO BID #0 tabs 05/19/20 02/24/24 (Lamictal) prednisone 1 mg tablet 4 mg PO DAILY 05/19/20 02/24/24 levothyroxine 25 mcg tablet 25 mcg PO DAILY 06/27/23 02/24/24 testosterone cypionate 200 mg/mL 60 mg IM Q2W 05/23/24 intramuscular oil Previous Rx's Medication Instructions Recorded diabetic shoes #1 ea 01/27/22 Allergies Allergy/AdvReac Type Severity Reaction Status Date / Time No Known Drug Allergies Allergy Verified 06/27/23 10:15 Patient History Medical History Epilepsy Hypothyroidism Hx of benign neoplasm of pituitary gland DM type 1 (diabetes mellitus, type 1) Lumbar pars defect Facet arthropathy, lumbar Compression fracture of L1 lumbar vertebra Surgical History History of surgical removal of pituitary gland H/O shoulder replacement Family History Unknown No pertinent family history Social History household members: spouse Smoking Status: Never smoker second hand exposure: No alcohol intake: current substance use type: does not use Smoking Status: Never smoker alcohol intake frequency: 0-2 drinks per day Substance Use Type: does not use Exam Initial Vital Signs Initial Vital Signs: Vital Signs Temperature 97.3 F L 06/10/24 13:56 Pulse Rate 67 06/10/24 13:56 Respiratory Rate 16 06/10/24 13:56 Blood Pressure 134/63 06/10/24 13:56 Pulse Oximetry 99 06/10/24 13:56 Oxygen Delivery Method Room Air 06/10/24 13:56 Const: Awake, alert, no acute distress, nontoxic appearing Cardiac: regular rate, regular rhythm RESP: unlabored, clear bilaterally, no wheezing GI: Soft, nontender, nondistended, no rebound, no guarding MSK: Atraumatic, full range of motion, pulses equal Skin: Warm, Dry, intact, no rashes Neuro: AO x3, CN II-XII grossly intact, moves all extremities, strength 5/5 in bilateral upper and lower extremities Course Orders Ordered: ED Orders 06/10/24 13:45 Complete Blood Count AUTO DIFF Stat Comprehensive Metabolic Panel Stat Lipase Stat Magnesium Stat NT-proBNP (BNP-Adult 18+) Stat PTT Partial Thromboplastin Jose Stat Prothrombin Time INR Stat Troponin & CK Cardiac Panel Stat 06/10/24 14:04 XR chest 1V Stat EKG-12 Lead Stat Vital Signs Vital signs: Vital Signs - 8 hr 06/10/24 13:56 06/10/24 16:58 Temperature 97.3 F L Pulse Rate 67 66 Respiratory Rate 16 18 Blood Pressure 134/63 156/73 H Pulse Oximetry 99 99 Oxygen Delivery Method Room Air Room Air MDM - Dizziness Lab Data 06/10/24 13:45 06/10/24 13:45 Labs: Lab Results 06/10/24 Range/Units 13:45 WBC 7.7 (4.5-11.0) X10^3/uL RBC 4.23 L (4.5-5.9) X10^6/uL Hgb 13.2 L (13.5-17.5) g/dL Hct 39.7 L (41-53) % MCV 94.0 (80-100) fL MCH 31.3 (26-34) PG MCHC 33.3 (30-36) % RDW 14.1 (11.6-14.8) % Plt Count 229 (150-400) X10^3/uL Neut % (Auto) 66.7 (50-75) % Lymph % (Auto) 11.5 L (25-40) % [place] % (Auto) 15.8 H (3-14) % Eos % (Auto) 5.0 H (2-4) % Baso % (Auto) 1.0 (0-2) % Neut # (Auto) 5100 (2717-3812) /uL Lymph # (Auto) 900 L (5324-7218) /uL [place] # (Auto) 1200 H (0-900) /uL Eos # (Auto) 400 (0-450) /uL Baso # (Auto) 100 (0-100) /uL PT 10.6 (9.4-12.5) SECONDS INR 0.9 (0.9-1.3) APTT 28 (25.1-36.5) SECONDS Sodium 136 L (137-145) mmol/L Potassium 3.8 (3.4-5.1) mmol/L Chloride 101 (98-107) mmol/L Carbon Dioxide 34 H (22-32) mmol/L BUN 23 H (9-20) mg/dL Creatinine 1.17 (0.66-1.25) mg/dL Estimated GFR > 60 (>60) mL/min BUN/Creatinine Ratio 19.7 (6-22) Glucose 51 L (80-110) mg/dL Calcium 8.7 (8.4-10.2) mg/dL Magnesium 2.2 (1.6-2.3) mg/dL Total Bilirubin 0.7 (0.2-1.3) mg/dL AST 28 (17-59) IU/L ALT 18 (<50) IU/L Alkaline Phosphatase 49 (38-126) U/L Total Creatine Kinase 100 (55-170) U/L Troponin I < 0.012 (0.01-0.034) ng/mL NT-Pro-B Natriuret Pep 414 (<450) pg/mL Total Protein 6.5 (6.3-8.2) g/dL Albumin 3.9 (3.5-5.0) g/dL Globulin 2.6 (1.7-4.1) g/dL Albumin/Globulin Ratio 1.5 (1.0-2.8) Lipase 25 (23-300) U/L Point of Care Testing Glucose POC 107 Imaging Data Chest x-ray: Radiologist's Impression: PROCEDURE: XR CHEST 1V INDICATIONS: chest pain TECHNIQUE: One view of the chest was acquired. COMPARISON: None. FINDINGS: Surgical changes and devices: Postsurgical changes from left shoulder arthroplasty. Lungs and pleura: Lungs are clear. No pleural effusions or pneumothorax. Mediastinum: Mediastinal contours appear normal. Heart size is normal. Bones and chest wall: No suspicious bony lesions. Overlying soft tissues appear unremarkable. IMPRESSION: No acute cardiopulmonary abnormality is seen. Approved by: Júnior Srivastava M.D. on 06/10/2024 at 15:09 MDM Narrative Medical decision making narrative: Well appearing patient with brief episode of described unresponsiveness. witnessed episode and no focal deficits were observed. By the time of my evaluation patient has been in the emergency department for several hours and had long since returned to his baseline. Laboratory work unremarkable. Neuro exam benign, NIH 0. Patient has known history of breakthrough unresponsive seizures and this sounds similar. Laboratory work and chest x-ray imaging as well as neurologic exam findings discussed with the patient and at bedside. They are comfortable going home and we will follow up with his usual doctors Discharge Plan Departure Patient Disposition: Home Clinical Impression: Change in mental state Instructions: DI for Syncope in Adults (Fainting) Activity Restrictions/Additional Instructions: Your laboratory work today is normal. On your exam today I do not see any evidence of a stroke. Your episode sounds consistent with a breakthrough brief seizure that you have had in the past. Continue to take all of your medications as prescribed, continue your normal follow up appointments. I do recommend following up with your neurologist to see if any medication changes need to be made or if any additional workup is needed. Prescriptions: No Action atorvastatin 20 mg tablet 20 mg PO DAILY multivitamin Tablet 1 tab PO DAILY Qty: 0 cholecalciferol (vitamin D3) [Vitamin D3] 25 mcg (1,000 unit) Tablet 25 mcg PO DAILY Qty: 0 insulin glargine [Lantus U-100 Insulin] 100 UNIT/1 ML solution 4 unit SQ DAILY Qty: 0 Humalog U-100 Insulin 100 UNIT/1 ML cartridge See Rx Instructions .ROUTE .COMPLEX Qty: 0 Rx Instructions: Sliding scale lamotrigine [Lamictal] 200 mg tablet 350 mg PO BID Qty: 0 (DME) diabetic shoes See Rx Instructions .Route .MEDSUPPLY Qty: 1 0RF Rx Instructions: as directed testosterone cypionate 200 mg/mL oil 60 mg IM Q2W Rx Instructions: 60mg (0.3ml) q 2 weeks levothyroxine 25 mcg Tablet 25 mcg PO DAILY prednisone 1 mg tablet 4 mg PO DAILY Referrals: Radha Perez MD [Primary Care Provider] - Stand Alone Forms: Patient Portal/API
[2024-06-10 18:30] VITALS: BP 169/74; PULSE 63; RESP 18; TEMP 36.7; O2SAT 99
== END 2024-06-10 18:31 | disposition home or self-care (01) ==
PROVIDERS: Emergency Medicine; Emergency Provider Emergency Medicine; Family Provider Family Medicine; PCP Family Medicine
DX: R55 Syncope and collapse (principal); R07.9 Chest pain, unspecified; Z79.899 Other long term (current) drug therapy
CPT/HCPCS: 71045; 80053; 82550; 82962; 83690; 83735; 83880; 84484; 85025; 85610; 85730; 93005; 93010; 99282; 99284

== ENCOUNTER → 2024-06-11 10:38 | Outpatient (CLI) | payer MEDICARE, SELFPAY | PROVIDERS: Family Provider Family Medicine; PCP Family Medicine; Visit Provider Physician Assistant | DX: J02.9 Acute pharyngitis, unspecified (principal) | CPT/HCPCS: 87070 ==

== ENCOUNTER 2024-06-11 10:39 | Emergency (ER) | payer MEDICARE, SELFPAY ==
[2024-06-11] VITALS (7 sets, daily range): BP systolic 126–161; BP diastolic 58–74; PULSE 64–71; RESP 7–24; O2SAT 96–99; BMI 22.6
--- NOTE | 2024-06-11 11:13 | EKG_ITS ---
[address] [address] Test Date: 2024-06-11 Pat Name: Javi Flores Department: Room: Gender: Male Real Estate Inspector: ARGELIA : 1945 Requested By: Order Number: [id number] Reading MD: Javi Yanes MD Measurements Intervals [place] Rate: 69 P: 68 AL: 210 QRS: 54 QRSD: 96 T: 49 QT: 400 QTc: 428 Interpretive Statements Sinus rhythm with 1st degree AV block Anterior infarct , age undetermined Electronically Signed On 06-11-2024 11:29:46 PDT by Javi Yanes MD
--- NOTE | 2024-06-11 11:21 | ED.GENADULT ---
HPI - General Adult General Chief complaint: Weakness Stated complaint: weakness sore throat poss thrust Time Seen by Provider: 06/11/24 10:43 Source: patient and family Mode of arrival: Wheelchair History of Present Illness HPI narrative: Patient is a 79-year-old male who was seen here in the emergency department yesterday for a syncope/presyncopal episode. Was discharged home after a unremarkable workup. Patient went to the walk-in clinic today because he has had a continued sore throat over the weekend. Apparently had a throat culture done which is still pending. Unsure whether or not he had a strep test done. He found that he was hypotensive in the walk-in clinic. Unsure what his blood pressure was not that point but he did seem to be symptomatic from this. He was sent here in the emergency department. Here in triage blood pressure is unremarkable. He denies fevers. Shortness of breath. It is painful with swallowing. Does not have history of high blood pressure. Related Data Home Medications Medication Instructions Recorded Confirmed multivitamin 1 tab PO DAILY ##0 12/11/06 06/11/24 cholecalciferol (vitamin D3) 25 25 mcg PO DAILY ##0 11/01/12 06/11/24 mcg (1,000 unit) tablet (Vitamin D3) insulin glargine 100 unit/mL 4 unit SQ DAILY #0 mL 11/01/12 06/11/24 subcutaneous solution (Lantus U-100 Insulin) insulin lispro 100 unit/mL See Rx Instructions .Route 11/01/12 06/11/24 subcutaneous cartridge (Humalog .COMPLEX ##0 U-100 Insulin) atorvastatin 20 mg tablet 20 mg PO DAILY 06/11/19 06/11/24 lamotrigine 200 mg tablet 350 mg PO BID #0 tabs 05/19/20 06/11/24 (Lamictal) prednisone 1 mg tablet 4 mg PO DAILY 05/19/20 06/11/24 levothyroxine 25 mcg tablet 25 mcg PO DAILY 06/27/23 06/11/24 testosterone cypionate 200 mg/mL 60 mg IM Q2W 05/23/24 06/11/24 intramuscular oil Previous Rx's Medication Instructions Recorded diabetic shoes #1 ea 01/27/22 Allergies Allergy/AdvReac Type Severity Reaction Status Date / Time No Known Drug Allergies Allergy Verified 06/11/24 10:36 Review of Systems Review of Systems Narrative: See HPI Patient History Medical History Epilepsy Hypothyroidism Hx of benign neoplasm of pituitary gland DM type 1 (diabetes mellitus, type 1) Lumbar pars defect Facet arthropathy, lumbar Compression fracture of L1 lumbar vertebra Surgical History History of surgical removal of pituitary gland H/O shoulder replacement Family History Unknown No pertinent family history Social History household members: spouse Smoking Status: Never smoker second hand exposure: No alcohol intake: current substance use type: does not use Smoking Status: Never smoker alcohol intake frequency: 0-2 drinks per day Substance Use Type: does not use Exam Initial Vital Signs Initial Vital Signs: Vital Signs Pulse Rate 71 06/11/24 11:08 Respiratory Rate 20 06/11/24 11:08 Pulse Oximetry 97 06/11/24 11:08 Oxygen Delivery Method Room Air 06/11/24 11:08 HENMT Head: normal to inspection and atraumatic Mouth: oral mucosae normal and moist mucous membranes Teeth and gingiva: dentition normal Throat: posterior oropharynx normal and uvula midline Neck Lymphatic: No lymphadenopathy Resp Effort & Inspection: normal respiratory effort Auscultation: clear to auscultation bilaterally Cardio Rate: regular rate Rhythm: regular rhythm Skin General: no rashes or lesions noted Neuro General: patient alert, patient awake and patient oriented x3 Course Orders Ordered: ED Orders 06/11/24 11:22 Strep Grp A by PCR Rapid Stat EKG-12 Lead Stat Vital Signs Vital signs: Vital Signs - 8 hr 06/11/24 11:08 06/11/24 11:08 06/11/24 11:11 Pulse Rate 71 68 Respiratory Rate 20 Blood Pressure 161/74 H Pulse Oximetry 97 96 Oxygen Delivery Method Room Air 06/11/24 11:11 06/11/24 11:30 06/11/24 11:30 Pulse Rate 70 64 Respiratory Rate 21 24 Blood Pressure 146/68 H Pulse Oximetry 97 97 Oxygen Delivery Method 06/11/24 12:00 06/11/24 12:00 06/11/24 12:27 Pulse Rate 68 Respiratory Rate 23 Blood Pressure 148/65 H 129/58 L Pulse Oximetry 99 Oxygen Delivery Method 06/11/24 12:27 06/11/24 12:30 06/11/24 12:30 Pulse Rate 69 66 Respiratory Rate 10 L 7 L Blood Pressure 126/60 Pulse Oximetry 98 99 Oxygen Delivery Method 06/11/24 13:00 06/11/24 13:00 Pulse Rate 68 Respiratory Rate 23 Blood Pressure 144/67 H Pulse Oximetry 99 Oxygen Delivery Method Medical Decision Making Lab Data Labs: Lab Results 06/11/24 Range/Units 11:22 Group A Strep (PCR) Negative (Negative) Point of Care Testing Glucose POC 129 Point of care testing: Point of Care Testing Glucose POC 129 ECG Data Attestation: I personally reviewed and interpreted this ECG as follows: Interpretation: Sinus rhythm Ventricular rate is 69 First-degree AV block [place] interval 2 and 0 milliseconds Normal axis Normal QRS No ST T wave changes MDM Narrative Medical decision making narrative: Patient has oropharyngeal exam is fairly unremarkable. I have low suspicion that this is thrush. A throat culture was pending at the time of his discharge he will be contacted if he needs to start on any antibiotics based on this. This is done by the walk-in clinic. His rapid strep was negative. Patient is not hypotensive here in the ER. I had a long discussion with both the patient his regarding his symptoms. It does not sound like his symptoms are seizure related. His workup yesterday was unremarkable. No fevers. No chest pain. We discussed the possibility of transient arrhythmias or other issues related to his heart. Recommended that he contact his primary doctor to discuss the indications for a Holter monitor/echocardiogram or referral to see Cardiology. He was given return precautions. He expressed understanding and agreement. Discharge Plan Departure Patient Disposition: Home Clinical Impression: Sore throat Instructions: Sore Throat Activity Restrictions/Additional Instructions: Continue to take all of your medications as directed. I do recommend that you contact your primary care doctor for a follow-up to discuss the indications for a Holter monitor/echocardiogram or even a referral to see Cardiology. Return to the emergency department for new or worsening symptoms. A throat culture was pending at the time you discharge and you will be contacted if you need to start any antibiotics based on this. Prescriptions: No Action atorvastatin 20 mg tablet 20 mg PO DAILY multivitamin Tablet 1 tab PO DAILY Qty: 0 cholecalciferol (vitamin D3) [Vitamin D3] 25 mcg (1,000 unit) Tablet 25 mcg PO DAILY Qty: 0 insulin glargine [Lantus U-100 Insulin] 100 UNIT/1 ML solution 4 unit SQ DAILY Qty: 0 Humalog U-100 Insulin 100 UNIT/1 ML cartridge See Rx Instructions .ROUTE .COMPLEX Qty: 0 Rx Instructions: Sliding scale lamotrigine [Lamictal] 200 mg tablet 350 mg PO BID Qty: 0 (DME) diabetic shoes See Rx Instructions .Route .MEDSUPPLY Qty: 1 0RF Rx Instructions: as directed testosterone cypionate 200 mg/mL oil 60 mg IM Q2W Rx Instructions: 60mg (0.3ml) q 2 weeks levothyroxine 25 mcg Tablet 25 mcg PO DAILY prednisone 1 mg tablet 4 mg PO DAILY Referrals: Radha Perez MD [Primary Care Provider] - Stand Alone Forms: Patient Portal/API
[2024-06-11 12:21] LABS: Strep Grp A by PCR Rapid Negative (Negative)
--- NOTE | 2024-06-11 12:31 | PC.NURSE ---
GLORY HOLE TENDER Note: Ambulation trial went well. Pt walked from room 10 to the white board and back with no complaints of SOB or light-headedness. Lightly unsteady with right leg, however patient was slow and cautious while walking.
== END 2024-06-11 13:24 | disposition home or self-care (01) ==
PROVIDERS: Emergency Provider Emergency Medicine; Family Provider Family Medicine; PCP Family Medicine
DX: J02.9 Acute pharyngitis, unspecified (principal); R03.1 Nonspecific low blood-pressure reading
CPT/HCPCS: 82962; 87070; 87651; 93005; 99282; 99283

== ENCOUNTER → 2024-06-12 15:08 | Outpatient (CLI) | payer MEDICARE, SELFPAY ==
--- NOTE | 2024-06-12 15:10 | DI.RAD.S_ITS ---
PROCEDURE: XR CHEST 2V INDICATIONS: htn TECHNIQUE: 2 views of the chest were acquired. COMPARISON: [facility], CR, XR CHEST 1V, 06/10/2024, 14:34. FINDINGS: Surgical changes and devices: Left shoulder arthroplasty Lungs and pleura: Lungs are clear. No pleural effusions or pneumothorax. Mediastinum: Mediastinal contours are normal. Heart size is normal. Bones and chest wall: No suspicious bony abnormalities. Soft tissues appear unremarkable. IMPRESSION: No acute cardiopulmonary abnormality is seen. Dictated by: Jean Yin M.D. on 06/12/2024 at 18:51 Approved by: Jean Yin M.D. on 06/12/2024 at 18:51
[2024-06-12 16:05] LABS: Add Manual Diff / Slide Review NO; Basophils Absolute Auto 0 /uL (0-100); Basophils Percent Auto 0.3 % (0-2); Eosinophils Absolute Auto 100 /uL (0-450); Eosinophils Percent Auto 0.7 % (2-4); Hematocrit 41.9 % (41-53); Hemoglobin 14.1 g/dL (13.5-17.5); Lymphocytes Absolute Auto 500 /uL (1100-4500); Lymphocytes Percent Auto 6.7 % (25-40); Mean Corpuscular HGB Conc 33.6 % (30-36); Mean Corpuscular Hemoglobin 31.5 PG (26-34); Mean Corpuscular Volume 93.7 fL (80-100); Monocytes Absolute Auto 700 /uL (0-900); Monocytes Percent Auto 10.1 % (3-14); Neutrophils Absolute Auto 5700 /uL (1500-7000); Neutrophils Percent Auto 82.2 % (50-75); Platelet Count 221 X10^3/uL (150-400); Red Blood Cell Count 4.47 X10^6/uL (4.5-5.9); Red Cell Distribution Width 13.9 % (11.6-14.8)
[2024-06-12 16:22] LABS: BUN Creatinine Ratio 23.3 (6-22); Blood Urea Nitrogen 24 mg/dL (9-20); Calcium 8.1 mg/dL (8.4-10.2); Carbon Dioxide 28 mmol/L (22-32); Chloride 91 mmol/L (98-107); Estimated Glomerular Filt Rate > 60 mL/min (>60); Glucose 128 mg/dL (80-110); HEMOLYSIS < 15 (0-50); Potassium 4.4 mmol/L (3.4-5.1); Sodium 126 mmol/L (137-145)
[2024-06-12 16:47] LABS: Influenza A - CEPHEID Flu A NEGATIVE (NEGATIVE); Influenza B - CEPHEID Flu B NEGATIVE (NEGATIVE); Respiratory Syncytial Virus Negative (Negative)
[2024-06-12 16:48] LABS: COVID-19 CEPHEID 4-PLEX PCR POSITIVE (Negative)
[2024-06-12 16:55] LABS: TSH w/ Reflex to FT4 0.02 uIU/mL (0.47-4.68); Testosterone 930 ng/dL (71.8-623)
[2024-06-12 18:01] LABS: Free T4, Direct Thyroxine 1.34 ng/dL (0.78-2.19)
== END ==
PROVIDERS: Family Provider Family Medicine; PCP Family Medicine; Referring Provider Family Medicine; Visit Provider Family Medicine
DX: I95.9 Hypotension, unspecified (principal); R79.89 Other specified abnormal findings of blood chemistry; R06.02 Shortness of breath
CPT/HCPCS: 0241U; 71046; 80048; 84403; 84439; 84443; 85025; 87040

== ENCOUNTER 2024-06-12 17:30 | Inpatient (IN) | payer MEDICARE, SELFPAY ==
[2024-06-12] VITALS (7 sets, daily range): BP systolic 131–176; BP diastolic 63–84; PULSE 59–70; RESP 16–18; TEMP 36–37; O2SAT 97–99; BMI 22.4
--- NOTE | 2024-06-12 18:49 | ED_ITS ---
HPI - Recheck/Abnormal Lab/Rx General Chief Complaint: Recheck/Abnormal Lab/Rx Stated Complaint: low sodium levels Time Seen by Provider: 06/12/24 18:06 Source: patient Mode of arrival: Family Vehicle History of Present Illness HPI narrative: 79-year-old gentleman with a history of type 1 diabetes since the age of 38, hypothyroidism, prior seizure disorder still on lamotrigine who has been seen for sore throat complaints with visits to the ER June 10, walk-in clinic and ER on the , primary care office and ER on the he has had complaints of sore throat and weakness with syncope. Workup has been unremarkable and he had been discharged home. Today he was tested for COVID in his positive. Chemistries were repeated and sodium has dropped from 136 on the to 126 today. His primary care doctor recommended repeat ER evaluation. He notes that his symptoms started 06/07 with mild weakness and mild sore throat. He does not describe significant fevers, chills, cough, palpitations, dyspnea, orthopnea, lower extremity edema. Syncope workup including CT scan of the head on the was unremarkable. He has been taking all of his usual medications. Related Data Home Medications Medication Instructions Recorded Confirmed multivitamin 1 tab PO DAILY ##0 12/11/06 06/12/24 cholecalciferol (vitamin D3) 25 25 mcg PO DAILY ##0 11/01/12 06/12/24 mcg (1,000 unit) tablet (Vitamin D3) insulin glargine 100 unit/mL 4 unit SQ DAILY #0 mL 11/01/12 06/12/24 subcutaneous solution (Lantus U-100 Insulin) insulin lispro 100 unit/mL See Rx Instructions .Route 11/01/12 06/12/24 subcutaneous cartridge (Humalog .COMPLEX ##0 U-100 Insulin) atorvastatin 20 mg tablet 20 mg PO DAILY 06/11/19 06/12/24 lamotrigine 200 mg tablet 350 mg PO BID #0 tabs 05/19/20 06/12/24 (Lamictal) prednisone 1 mg tablet 4 mg PO DAILY 05/19/20 06/12/24 levothyroxine 25 mcg tablet 25 mcg PO DAILY 06/27/23 06/12/24 testosterone cypionate 200 mg/mL 60 mg IM Q2W 05/23/24 06/12/24 intramuscular oil Previous Rx's Medication Instructions Recorded diabetic shoes #1 ea 01/27/22 pantoprazole 20 mg tablet,delayed 20 mg PO DAILY #90 tabs 06/12/24 release Allergies Allergy/AdvReac Type Severity Reaction Status Date / Time No Known Drug Allergies Allergy Verified 06/12/24 14:06 Review of Systems Review of Systems Narrative: Pertinent positive and negative findings as per HPI Patient History Medical History Epilepsy Hypothyroidism Hx of benign neoplasm of pituitary gland DM type 1 (diabetes mellitus, type 1) Lumbar pars defect Facet arthropathy, lumbar Compression fracture of L1 lumbar vertebra Surgical History History of surgical removal of pituitary gland H/O shoulder replacement Family History Unknown No pertinent family history Social History household members: spouse Smoking Status: Never smoker second hand exposure: No alcohol intake: current substance use type: does not use Smoking Status: Never smoker alcohol intake frequency: 0-2 drinks per day Substance Use Type: does not use Exam Initial Vital Signs Initial Vital Signs: Vital Signs Temperature 98.6 F 06/12/24 17:40 Pulse Rate 65 06/12/24 17:40 Respiratory Rate 16 06/12/24 17:40 Blood Pressure 138/64 06/12/24 17:40 Pulse Oximetry 97 06/12/24 17:40 Oxygen Delivery Method Room Air 06/12/24 17:40 General: Slightly fatigued appearing but otherwise healthy and in no acute distress. Able to give a complete and coherent history. Well-nourished well- developed HEENT: Moist mucous membranes, normal sclera with reactive pupils, Respiratory: Lungs are clear to auscultation, no wheezing no rales no rhonchi. Full and symmetrical air movement Cardiac: Regular rate and rhythm no murmurs no bruits Abdomen: Soft, nontender, good bowel tones, no flank pain Skin: Warm and dry, no rashes Neurologic: Globally weak, Grossly neurologically intact with no obvious asymmetries or abnormalities Extremities: No trauma, well perfused Psych: Cooperative, appropriate insight and affect Course Orders Ordered: ED Orders 06/12/24 19:20 Complete Blood Count AUTO DIFF Stat Comprehensive Metabolic Panel Stat Magnesium Stat Acetaminophen (Acetaminophen 325 Mg Tablet) 650 mg PO Q6H PRN PRN Reason: Fever/Mild Pain (1-3) Atorvastatin Calcium (Atorvastatin 20 Mg Tablet) 20 mg PO DAILY [facility] Enoxaparin Sodium (Enoxaparin 40 Mg/0.4 Ml Syringe) 40 mg SUBCUT DAILY [facility] Dextrose (D10w) 100 mls @ 999 mls/hr IV PRN PRN PRN Reason: Hypoglycemia Sodium Chloride (Normal Saline 0.9%) 1,000 mls @ 150 mls/hr IV CONT [facility] Insulin Glargine (Insulin Glargine 100 Unit/Ml 3ml Pen) 4 unit SUBCUT DAILY [facility] Insulin Human Lispro (Insulin Lispro 100 Unit/Ml 3ml Vial) 0 unit SUBCUT ACHS GUS; Protocol Lamotrigine (Lamotrigine 100 Mg Tablet) 350 mg PO BID [facility] Last Admin: 06/12/24 23:06 Dose: 350 mg Documented By: Levothyroxine Sodium (Levothyroxine 25 Mcg Tablet) 25 mcg PO QACBREAK [facility] Magnesium Hydroxide (Magnesium Hydroxide 30 Ml Udc) 30 ml PO DAILY PRN PRN Reason: Constipation Multivitamins (Multivitamin 1 Tablet) 1 tab PO DAILY [facility] Naloxone HCl (Naloxone 0.4 Mg/Ml Vial) 0.2 mg IV Q2MIN PRN PRN Reason: Opiate Reversal Non-Formulary Medication (Prednisone) 4 mg PO DAILY [facility] Ondansetron HCl (Ondansetron 4 Mg/2 Ml Inj) 4 mg IV Q8HR PRN PRN Reason: Nausea And Vomiting Pantoprazole Sodium (Pantoprazole Dr 20 Mg Tablet) 20 mg PO 0700 [facility] Testosterone Cypionate (Testosterone Cypionate 200 Mg/Ml Vial) 60 mg IM Q2W [facility] Vitamin D (Cholecalciferol (Vitamin D3) 1,000 Unit Tablet) 1,000 unit PO DAILY [facility] Discontinued Medications Acetaminophen (Acetaminophen 325 Mg Tablet) 650 mg PO Q6H PRN PRN Reason: Fever/Mild Pain (1-3) Atorvastatin Calcium (Atorvastatin 20 Mg Tablet) 20 mg PO DAILY [facility] Enoxaparin Sodium (Enoxaparin 40 Mg/0.4 Ml Syringe) 40 mg SUBCUT DAILY [facility] Sodium Chloride (Normal Saline 0.9%) 1,000 mls @ 200 mls/hr IV CONT [facility] Last Infusion: 06/12/24 21:01 Dose: 200 mls/hr Documented By: Admin: 06/12/24 19:56 Dose: 200 mls/hr Documented By: LILA Dextrose (D10w) 100 mls @ 999 mls/hr IV PRN PRN PRN Reason: Hypoglycemia Sodium Chloride (Normal Saline 0.9%) 1,000 mls @ 150 mls/hr IV CONT [facility] Insulin Human Lispro (Insulin Lispro 100 Unit/Ml 3ml Vial) 0 unit SUBCUT ACHS GUS; Protocol Lamotrigine (Lamotrigine 100 Mg Tablet) 350 mg PO BID [facility] Levothyroxine Sodium (Levothyroxine 25 Mcg Tablet) 25 mcg PO DAILY [facility] Magnesium Hydroxide (Magnesium Hydroxide 30 Ml Udc) 30 ml PO DAILY PRN PRN Reason: Constipation Naloxone HCl (Naloxone 0.4 Mg/Ml Vial) 0.2 mg IV Q2MIN PRN PRN Reason: Opiate Reversal Non-Formulary Medication (Insulin Glargine [Lantus U-100 Insulin]) 4 unit SQ DAILY [facility] Non-Formulary Medication (Insulin Lispro [Humalog U-100 Insulin]) 0 unit .ROUTE .COMPLEX GUS Non-Formulary Medication (Multivitamin) 1 tab PO DAILY [facility] Non-Formulary Medication (Prednisone) 4 mg PO DAILY [facility] Ondansetron HCl (Ondansetron 4 Mg/2 Ml Inj) 4 mg IV Q8HR PRN PRN Reason: Nausea And Vomiting Pantoprazole Sodium (Pantoprazole Dr 20 Mg Tablet) 20 mg PO 0700 [facility] Testosterone Cypionate (Testosterone Cypionate 200 Mg/Ml Vial) 60 mg IM Q2W [facility] Vitamin D (Cholecalciferol (Vitamin D3) 1,000 Unit Tablet) unit PO DAILY GUS Vital Signs Vital signs: Vital Signs - 8 hr 06/12/24 17:40 06/12/24 17:50 06/12/24 18:00 Temperature 98.6 F Pulse Rate 65 66 61 Respiratory Rate 16 Blood Pressure 138/64 145/68 H 131/63 Pulse Oximetry 97 98 99 Oxygen Delivery Method Room Air Room Air Room Air 06/12/24 18:33 Temperature Pulse Rate 62 Respiratory Rate Blood Pressure 135/65 Pulse Oximetry 99 Oxygen Delivery Method Room Air MDM - Recheck/Abnormal Lab/Rx Lab Data 06/12/24 19:20 06/12/24 19:20 Labs: Lab Results 06/12/24 Range/Units 19:20 WBC 8.0 (4.5-11.0) X10^3/uL RBC 4.25 L (4.5-5.9) X10^6/uL Hgb 13.2 L (13.5-17.5) g/dL Hct 39.6 L (41-53) % MCV 93.1 (80-100) fL MCH 31.0 (26-34) PG MCHC 33.3 (30-36) % RDW 13.7 (11.6-14.8) % Plt Count 203 (150-400) X10^3/uL Neut % (Auto) 81.7 H (50-75) % Lymph % (Auto) 7.2 L (25-40) % [place] % (Auto) 10.0 (3-14) % Eos % (Auto) 0.6 L (2-4) % Baso % (Auto) 0.5 (0-2) % Neut # (Auto) 6600 (6742-8272) /uL Lymph # (Auto) 600 L (3617-2362) /uL [place] # (Auto) 800 (0-900) /uL Eos # (Auto) 100 (0-450) /uL Baso # (Auto) 0 (0-100) /uL Sodium 124 L (137-145) mmol/L Potassium 4.8 (3.4-5.1) mmol/L Chloride 93 L (98-107) mmol/L Carbon Dioxide 25 (22-32) mmol/L BUN 25 H (9-20) mg/dL Creatinine 0.97 (0.66-1.25) mg/dL Estimated GFR > 60 (>60) mL/min BUN/Creatinine Ratio 25.8 H (6-22) Glucose 178 H (80-110) mg/dL Calcium 7.8 L (8.4-10.2) mg/dL Magnesium 2.0 (1.6-2.3) mg/dL Total Bilirubin 0.9 (0.2-1.3) mg/dL AST 29 (17-59) IU/L ALT 20 (<50) IU/L Alkaline Phosphatase 59 (38-126) U/L Total Protein 6.8 (6.3-8.2) g/dL Albumin 3.8 (3.5-5.0) g/dL Globulin 3.0 (1.7-4.1) g/dL Albumin/Globulin Ratio 1.3 (1.0-2.8) MDM Narrative Medical decision making narrative: CC: Sent in by primary care physician with hyponatremia new over the last 48 hours, persistent weakness and positive COVID test Complicating co-morbidities: Type 1 diabetic, seizure disorder. Patient has had 5 COVID vaccines but has never had the actual disease diagnosed Data collected from: patient, Medical records reviewed: ER, urgent care and primary care visits all related to his current acute illness are reviewed Differential considered: Hyponatremia secondary to COVID, does not describe significant dramatic increase in water, DKA, pneumonia Exam documented above, pertinent findings include: Aside from global weakness this gentleman looks fairly well. No evidence of hypoxia, no wheezing to suggest bacterial secondary infection abdomen is soft, he appears euvolemic on clinical exam Lab Test results independently reviewed as above. Pertinent findings: Positive COVID test today Chemistries show sodium decreased from 12/27 6 on the down to 126. There is no anion gap, glucose is 128 Imaging studies independently reviewed: Chest x-ray is entirely unremarkable Consultations: Care is reviewed with Dr. Bird, patient will be admitted Treatments: Saline at 200 an hour for the 1 L than 130 an hour to follow. Discussion: 79-year-old gentleman with type 1 diabetes increasing weakness, near-syncope persistent severe sore throat no hypoxia who continues with dramatic weakness. Likely has been COVID positive for at least 5 days. He has not a candidate for Paxlovid based on that. Not a candidate for steroid based on the fact that he has not hypoxic. Based on the hyponatremia and global weakness will opt to admit him to the hospital until sodium returns to baseline and he is feeling strong enough to return home without complication Discharge Plan Departure Patient Disposition: Admitted as Observation Clinical Impression: Hyponatremia, Weakness, COVID Admit Date/Time: 06/12/24 19:34 Admit Provider: Ronald Bird
[2024-06-12 19:29] LABS: Add Manual Diff / Slide Review NO; Basophils Absolute Auto 0 /uL (0-100); Basophils Percent Auto 0.5 % (0-2); Eosinophils Absolute Auto 100 /uL (0-450); Eosinophils Percent Auto 0.6 % (2-4); Hematocrit 39.6 % (41-53); Hemoglobin 13.2 g/dL (13.5-17.5); Lymphocytes Absolute Auto 600 /uL (1100-4500); Lymphocytes Percent Auto 7.2 % (25-40); Mean Corpuscular HGB Conc 33.3 % (30-36); Mean Corpuscular Volume 93.1 fL (80-100); Monocytes Absolute Auto 800 /uL (0-900); Neutrophils Absolute Auto 6600 /uL (1500-7000); Neutrophils Percent Auto 81.7 % (50-75); Platelet Count 203 X10^3/uL (150-400); Red Blood Cell Count 4.25 X10^6/uL (4.5-5.9); Red Cell Distribution Width 13.7 % (11.6-14.8)
[2024-06-12 19:40] LABS: Alanine Aminotransferase 20 IU/L (<50); Albumin 3.8 g/dL (3.5-5.0); Albumin Globulin Ratio 1.3 (1.0-2.8); Alkaline Phosphatase 59 U/L (38-126); Aspartate Aminotransferase 29 IU/L (17-59); BUN Creatinine Ratio 25.8 (6-22); Bilirubin Total 0.9 mg/dL (0.2-1.3); Blood Urea Nitrogen 25 mg/dL (9-20); Calcium 7.8 mg/dL (8.4-10.2); Carbon Dioxide 25 mmol/L (22-32); Chloride 93 mmol/L (98-107); Estimated Glomerular Filt Rate > 60 mL/min (>60); Glucose 178 mg/dL (80-110); HEMOLYSIS < 15 (0-50); Potassium 4.8 mmol/L (3.4-5.1); Sodium 124 mmol/L (137-145); Total Protein 6.8 g/dL (6.3-8.2)
[2024-06-12] MEDS: SODIUM CHLORIDE 0.9% 1,000 ML 200 ML IV (19:56)
[2024-06-12] MEDS: lamoTRIgine 100 MG TABLET 350 MG PO (23:06)
[2024-06-12] MEDS: INSULIN LISPRO 100 UNIT/ML 3ML VIAL SUBCUT (23:37)
[2024-06-13] MEDS: SODIUM CHLORIDE 0.9% 1,000 ML 150 ML IV ×4 (01:02→21:30)
[2024-06-13] MEDS: LEVOTHYROXINE 25 MCG TABLET PO (06:02)
[2024-06-13] MEDS: PANTOPRAZOLE DR 20 MG TABLET PO (06:02)
--- NOTE | 2024-06-13 06:21 | PC.ADMIT ---
Addendum entered by Gretel Méndez R.N. 06/13/24 06:24: ALISON 192 @ admit. Original Note: [email or web address] [facility] Admission Note:Patient admitted to ACU from ED @ 21:05. Alert and oriented x 4, cooperative. NS @ 150. Oriented to room and call light. Bed in low, locked position and call light within reach. The patient,Javi Flores,79 y/o, was given written information regarding hospital policies, unit procedures and contact persons. Patient's smoking status: Never smoker.
[2024-06-13 06:22] LABS: Add Manual Diff / Slide Review NO; Basophils Absolute Auto 0 /uL (0-100); Basophils Percent Auto 0.4 % (0-2); Eosinophils Absolute Auto 200 /uL (0-450); Eosinophils Percent Auto 3.9 % (2-4); Hematocrit 37.6 % (41-53); Hemoglobin 12.6 g/dL (13.5-17.5); Lymphocytes Absolute Auto 900 /uL (1100-4500); Mean Corpuscular HGB Conc 33.7 % (30-36); Mean Corpuscular Hemoglobin 31.3 PG (26-34); Mean Corpuscular Volume 93.1 fL (80-100); Monocytes Absolute Auto 700 /uL (0-900); Monocytes Percent Auto 12.5 % (3-14); Neutrophils Absolute Auto 4100 /uL (1500-7000); Neutrophils Percent Auto 68.2 % (50-75); Platelet Count 196 X10^3/uL (150-400); Red Blood Cell Count 4.03 X10^6/uL (4.5-5.9); Red Cell Distribution Width 13.7 % (11.6-14.8)
[2024-06-13 06:38] LABS: Alanine Aminotransferase 16 IU/L (<50); Albumin 3.3 g/dL (3.5-5.0); Albumin Globulin Ratio 1.3 (1.0-2.8); Alkaline Phosphatase 51 U/L (38-126); Aspartate Aminotransferase 25 IU/L (17-59); BUN Creatinine Ratio 20.2 (6-22); Bilirubin Total 0.8 mg/dL (0.2-1.3); Blood Urea Nitrogen 17 mg/dL (9-20); Calcium 7.2 mg/dL (8.4-10.2); Carbon Dioxide 27 mmol/L (22-32); Chloride 98 mmol/L (98-107); Estimated Glomerular Filt Rate > 60 mL/min (>60); Globulin 2.5 g/dL (1.7-4.1); Glucose 139 mg/dL (80-110); HEMOLYSIS < 15 (0-50); Potassium 3.7 mmol/L (3.4-5.1); Sodium 127 mmol/L (137-145); Total Protein 5.8 g/dL (6.3-8.2)
[2024-06-13 07:00] VITALS: BP 130/61; PULSE 63; RESP 18; TEMP 36.3
[2024-06-13] MEDS: ATORVASTATIN 20 MG TABLET PO (08:20)
[2024-06-13] MEDS: lamoTRIgine 100 MG TABLET 350 MG PO ×2 (08:25→21:31)
[2024-06-13] MEDS: CHOLECALCIFEROL (VITAMIN D3) 1,000 UNIT TABLET 1000 UNIT PO (08:25)
[2024-06-13] MEDS: MULTIVITAMIN 1 TABLET 1 TAB PO (08:26)
[2024-06-13] MEDS: ENOXAPARIN 40 MG/0.4 ML SYRINGE SUBCUT (08:26)
[2024-06-13] MEDS: INSULIN LISPRO 100 UNIT/ML 3ML VIAL SUBCUT ×3 (08:27→21:38)
[2024-06-13] MEDS: INSULIN GLARGINE 100 UNIT/ML 3ML PEN SUBCUT (08:28)
--- NOTE | 2024-06-13 09:25 | PM.HP.1 ---
History of Present Illness History of Present Illness Date Patient Seen: 06/13/24 Time Patient Seen: 08:30 Chief complaint: low sodium levels Narrative: Pt is a 79yo man with DM Type 1, hypothyroidism, seizures, chronic mild hyponatremia who presented with sore throat and weakness. The pt reports that on 06/08 he started to feel ill with sore throat and fatigue/weakness. On 06/10 he was sitting at the counter and suddenly lost consciousness. His caught him as he fell towards the floor. He was not conscious for approximately 1 minute. 911 was contacted and his blood sugar was 76, however BP was low at 70/43. He came to the hospital where work-up was completely negative, and the LOC was thought to be due to seizure activity. He was discharged home. The pts sore throat persisted, and on 06/11 he presented to the [facility] for evaluation of that. In the [facility] his BP was noted to be 78/38, and the pt was taken to the ED again. There his BP was repeatedly in normal range. On 06/12 he was seen in our office, and appeared quite weak and pale. His exam was benign, and BP was low normal range. The pt continued to report a severe sore throat, decreased PO intake, and weakness/fatigue. Lab work was completed that showed significant hyponatremia and COVID positive, and it was requested that he come to the ED for evaluation. The pt denies any fevers, chills, abdominal pain, nausea/vomiting, diarrhea, ear pain, nasal congestion, cough. This morning, the pt reports feeling significantly improved. He was able to eat breakfast without as much discomfort. He feels more energetic as well. [facility] Medical History Epilepsy Hypothyroidism Hx of benign neoplasm of pituitary gland DM type 1 (diabetes mellitus, type 1) Lumbar pars defect Facet arthropathy, lumbar Compression fracture of L1 lumbar vertebra Surgical History History of surgical removal of pituitary gland H/O shoulder replacement Family History Unknown No pertinent family history Social History household members: spouse Smoking Status: Never smoker second hand exposure: No alcohol intake: current substance use type: does not use Meds Home Medications and Allergies Home Medications Medication Instructions Recorded Confirmed Type multivitamin 1 tab PO DAILY ##0 12/11/06 06/12/24 History cholecalciferol (vitamin D3) 25 25 mcg PO DAILY ##0 11/01/12 06/12/24 History mcg (1,000 unit) tablet (Vitamin D3) insulin glargine 100 unit/mL 4 unit SQ DAILY #0 mL 11/01/12 06/12/24 History subcutaneous solution (Lantus U-100 Insulin) insulin lispro 100 unit/mL See Rx Instructions .Route 11/01/12 06/12/24 History subcutaneous cartridge (Humalog .COMPLEX ##0 U-100 Insulin) atorvastatin 20 mg tablet 20 mg PO DAILY 06/11/19 06/12/24 History lamotrigine 200 mg tablet 350 mg PO BID #0 tabs 05/19/20 06/12/24 History (Lamictal) prednisone 1 mg tablet 4 mg PO DAILY 05/19/20 06/12/24 History testosterone cypionate 200 mg/mL 60 mg IM Q2W 05/23/24 06/12/24 History intramuscular oil pantoprazole 20 mg tablet,delayed 20 mg PO DAILY #90 tabs 06/12/24 06/13/24 Rx release levothyroxine 137 mcg tablet 137 mcg PO DAILY@06/13/24 06/13/24 History Allergies Allergy/AdvReac Type Severity Reaction Status Date / Time No Known Drug Allergies Allergy Verified 06/12/24 14:06 Exam Vital Signs (past 8 hours): Oxygen Delivery Method Room Air Oxygen Flow Rate 0 Narrative Exam Narrative: Gen: NAD, sitting comfortably in bed, appears significantly improved from yesterday Neck: No LAD CV: RRR, no murmurs Resp: Clear to auscultation bilaterally Abd: Soft, nontender, nondistended Ext: No edema Neuro: No gross deficits Objective Labs 06/13/24 05:45 06/13/24 15:20 Labs: Laboratory Results - last 24 hr 06/12/24 06/13/24 19:20 05:45 WBC 8.0 6.0 RBC 4.25 L 4.03 L Hgb 13.2 L 12.6 L Hct 39.6 L 37.6 L MCV 93.1 93.1 MCH 31.0 31.3 MCHC 33.3 33.7 RDW 13.7 13.7 Plt Count 203 196 Neut % (Auto) 81.7 H 68.2 Lymph % (Auto) 7.2 L 15.0 L [place] % (Auto) 10.0 12.5 Eos % (Auto) 0.6 L 3.9 Baso % (Auto) 0.5 0.4 Neut # (Auto) 6600 4100 Lymph # (Auto) 600 L 900 L [place] # (Auto) 800 700 Eos # (Auto) 100 200 Baso # (Auto) 0 0 Sodium 124 L 127 L Potassium 4.8 3.7 Chloride 93 L 98 Carbon Dioxide 25 27 BUN 25 H 17 Creatinine 0.97 0.84 Estimated GFR > 60 > 60 BUN/Creatinine Ratio 25.8 H 20.2 Glucose 178 H 139 H Calcium 7.8 L 7.2 L Magnesium 2.0 Total Bilirubin 0.9 0.8 AST 29 25 ALT 20 16 Alkaline Phosphatase 59 51 Total Protein 6.8 5.8 L Albumin 3.8 3.3 L Globulin 3.0 2.5 Albumin/Globulin Ratio 1.3 1.3 Assessment & Plan Assessment & Plan narrative: Pt is a 79yo man with DM Type 1, hypothyroidism, chronic mild hyponatremia who presented with sore throat and weakness. Found to be COVID positive with significant hyponatremia. 1) Hyponatremia: Acute on chronic. Likely due to COVID. - Continue mIVF at 150cc/hr - Repeat BMP this afternoon to ensure continuing to improve - If no improvement in sodium, will initiate hyponatremia work-up 2) COVID: Pt feels significantly improved this morning. Sore throat improving. Throat culture negative. - No indication for treatment, and pt outside window for Paxlovid - Encouraged his to test at home 3) DM Type 1: BS in good range - Continue home insulin - ACHS blood sugars 4) Hypothyroidism: TSH low on check yesterday - Hold Levothyroxine FEN: Carb control diet DVT ppx: Lovenox COde: Full Dispo: Pending improvement in hyponatremia. Pt does not feel the need for PT eval, weakness improving. Time-Based Coding :: [TOTAL MINUTES] spent with patient and on the chart (including review of chart, obtaining history, exam, reviewing outside data, placing orders, documenting exam and treatment plan, and counseling patient) on [DATE].
[2024-06-13] MEDS: predniSONE 5 MG TABLET PO (12:00)
--- NOTE | 2024-06-13 12:00 | CM.DANOTE ---
Brief DCP Assessment Note Pt is a 79yo M here with low sodium. Had a near syncope episode. Was found to be COVID pos. PCP Ana Payer Medicare and [employer] reviewed EMR. Pt lives in [place] with spouse Vicki. Per chart review, pt is normally indep/active at baseline, no DME. Per RN, no anticipated CM/DCP needs. Per RN, Ana reports pt will be cleared to dc home when sodium closer to 130s. Last check sodium was 127. Will recheck this afternoon, but anticipate another night. P: anticipate dc home with spouse when sodium is WNL. Likely no barriers to safe dc home with spouse support. CM team will continue to follow as needed HUGH Dominique Discharge Planning/Care Management CM Discharge Assessment Start: 06/13/24 11:59 Freq: Status: Active Protocol: Document 06/13/24 11:59 (Rec: 06/13/24 12:00 [id number]) Discharge Planning Assessment Assigned Risk Management Intern HUGH Camejo DPOA/Assigned Designee Name Vicki spouse Contact Information [phone] Advance Directives? Yes Advance Directives on File Yes History Provided By Patient Household Members spouse Independent with ADL's Yes Is patient alert and oriented? Yes Discharge Plan Home Referrals Initiated None needed Whiteboard Updated in Patient Room with No name and ext. # of Risk Management Intern Review Status In Process Please Provide Date Initial DC 06/13/24 Assessment Was Performed Next Review Type Continued Stay Review
[2024-06-13 15:59] LABS: BUN Creatinine Ratio 20.9 (6-22); Blood Urea Nitrogen 18 mg/dL (9-20); Calcium 7.4 mg/dL (8.4-10.2); Carbon Dioxide 26 mmol/L (22-32); Chloride 97 mmol/L (98-107); Estimated Glomerular Filt Rate > 60 mL/min (>60); Glucose 139 mg/dL (80-110); HEMOLYSIS 26 (0-50); Potassium 4.7 mmol/L (3.4-5.1); Sodium 127 mmol/L (137-145)
[2024-06-13 19:07] LABS: Sodium Urine Random 176 mmol/L (30-90)
[2024-06-13 19:45] VITALS: BP 153/73; PULSE 60; RESP 20; TEMP 36.3; O2SAT 98
[2024-06-14 05:17] LABS: Alanine Aminotransferase 17 IU/L (<50); Albumin 3.4 g/dL (3.5-5.0); Albumin Globulin Ratio 1.2 (1.0-2.8); Alkaline Phosphatase 61 U/L (38-126); Aspartate Aminotransferase 26 IU/L (17-59); BUN Creatinine Ratio 17.1 (6-22); Bilirubin Total 0.7 mg/dL (0.2-1.3); Blood Urea Nitrogen 14 mg/dL (9-20); Calcium 7.6 mg/dL (8.4-10.2); Carbon Dioxide 24 mmol/L (22-32); Chloride 99 mmol/L (98-107); Estimated Glomerular Filt Rate > 60 mL/min (>60); Globulin 2.8 g/dL (1.7-4.1); Glucose 144 mg/dL (80-110); HEMOLYSIS < 15 (0-50); Potassium 4.2 mmol/L (3.4-5.1); Sodium 130 mmol/L (137-145); Total Protein 6.2 g/dL (6.3-8.2)
[2024-06-14] MEDS: PANTOPRAZOLE DR 20 MG TABLET PO (06:07)
[2024-06-14] MEDS: INSULIN LISPRO 100 UNIT/ML 3ML VIAL SUBCUT ×2 (08:05→12:39)
[2024-06-14] MEDS: INSULIN GLARGINE 100 UNIT/ML 3ML PEN SUBCUT (08:08)
[2024-06-14] MEDS: ENOXAPARIN 40 MG/0.4 ML SYRINGE SUBCUT (08:16)
[2024-06-14] MEDS: lamoTRIgine 100 MG TABLET 350 MG PO (08:16)
[2024-06-14] MEDS: MULTIVITAMIN 1 TABLET 1 TAB PO (08:16)
[2024-06-14] MEDS: predniSONE 5 MG TABLET PO (08:16)
[2024-06-14] MEDS: CHOLECALCIFEROL (VITAMIN D3) 1,000 UNIT TABLET 1000 UNIT PO (08:16)
[2024-06-14] MEDS: ATORVASTATIN 20 MG TABLET PO (08:16)
--- NOTE | 2024-06-14 09:31 | PM.DS.1 ---
History of Present Illness History of Present Illness Date Patient Seen: 06/14/24 Time Patient Seen: 09:31 Chief complaint: low sodium levels Narrative: Pt is a 79yo man with DM Type 1, hypothyroidism, seizures, chronic mild hyponatremia who presented with sore throat and weakness. The pt reports that on 06/08 he started to feel ill with sore throat and fatigue/weakness. On 06/10 he was sitting at the counter and suddenly lost consciousness. His caught him as he fell towards the floor. He was not conscious for approximately 1 minute. 911 was contacted and his blood sugar was 76, however BP was low at 70/43. He came to the hospital where work-up was completely negative, and the LOC was thought to be due to seizure activity. He was discharged home. The pts sore throat persisted, and on 06/11 he presented to the [facility] for evaluation of that. In the [facility] his BP was noted to be 78/38, and the pt was taken to the ED again. There his BP was repeatedly in normal range. On 06/12 he was seen in our office, and appeared quite weak and pale. His exam was benign, and BP was low normal range. The pt continued to report a severe sore throat, decreased PO intake, and weakness/fatigue. Lab work was completed that showed significant hyponatremia and COVID positive, and it was requested that he come to the ED for evaluation. The pt denies any fevers, chills, abdominal pain, nausea/vomiting, diarrhea, ear pain, nasal congestion, cough. This morning, the pt reports feeling significantly improved. He was able to eat breakfast without as much discomfort. He feels more energetic as well. Discharge Providers Provider Date of admission: 06/12/24 19:34 Discharge Date: 06/14/24 Primary care physician: Radha Perez MD Consults: 06/12/24 21:43 Consult to Discharge Planning Routine Comment: Discharge provider: Radha Perez MD Summary Hospital Course Discharge Diagnosis: Acute on chronic hyponatremia COVID DM Type 1 Hypothyroidism Hospital Course: The pt presented with symptomatic hyponatremia with significant weakness. He received IVF and his sodium gradually improved. The pt was feeling significantly improved at the time of discharge. Studies to evaluate the cause of his hyponatremia were pending at the time of discharge. It is likely due to COVID. He will repeat his BMP on 06/18. Status at Discharge Cognitive/behavioral status at discharge: oriented Functional status at discharge: independent ambulation Overall status at discharge: patient is progressing back to baseline Exam Vital Signs (past 8 hours): Oxygen Delivery Method Room Air Oxygen Flow Rate 0 Narrative Exam Narrative: Gen: NAD, sitting comfortably in bed, appears significantly improved from yesterday Neck: No LAD CV: RRR, no murmurs Resp: Clear to auscultation bilaterally Abd: Soft, nontender, nondistended Ext: No edema Neuro: No gross deficits Objective Labs 06/13/24 05:45 06/14/24 14:40 Labs: Laboratory Results - last 24 hr 06/13/24 06/13/24 06/14/24 15:20 17:30 04:09 Sodium 127 L 130 L Potassium 4.7 4.2 Chloride 97 L 99 Carbon Dioxide 26 24 BUN 18 14 Creatinine 0.86 0.82 Estimated GFR > 60 > 60 BUN/Creatinine Ratio 20.9 17.1 Glucose 139 H 144 H Calcium 7.4 L 7.6 L Total Bilirubin 0.7 AST 26 ALT 17 Alkaline Phosphatase 61 Total Protein 6.2 L Albumin 3.4 L Globulin 2.8 Albumin/Globulin Ratio 1.2 Ur Random Sodium [address] [facility] Medical History Epilepsy Hypothyroidism Hx of benign neoplasm of pituitary gland DM type 1 (diabetes mellitus, type 1) Lumbar pars defect Facet arthropathy, lumbar Compression fracture of L1 lumbar vertebra Surgical History History of surgical removal of pituitary gland H/O shoulder replacement Family History Unknown No pertinent family history Social History household members: spouse Smoking Status: Never smoker second hand exposure: No alcohol intake: current substance use type: does not use Discharge Plan Discharge Plan Patient Disposition: Home Discharge orders & Medications Prescriptions: Continued atorvastatin 20 mg tablet 20 mg PO DAILY multivitamin Tablet 1 tab PO DAILY Qty: 0 cholecalciferol (vitamin D3) [Vitamin D3] 25 mcg (1,000 unit) Tablet 25 mcg PO DAILY Qty: 0 insulin glargine [Lantus U-100 Insulin] 100 UNIT/1 ML solution 4 unit SQ DAILY Qty: 0 Humalog U-100 Insulin 100 UNIT/1 ML cartridge See Rx Instructions .ROUTE .COMPLEX Qty: 0 Rx Instructions: Sliding scale lamotrigine [Lamictal] 200 mg tablet 350 mg PO BID Qty: 0 testosterone cypionate 200 mg/mL oil 60 mg IM Q2W Rx Instructions: 60mg (0.3ml) q 2 weeks pantoprazole 20 mg tablet,delayed release (DR/EC) 20 mg PO DAILY Qty: 90 0RF prednisone 1 mg tablet 4 mg PO DAILY Discontinued levothyroxine 137 mcg tablet 137 mcg PO DAILY@06 Follow up/Referrals: Radha Perez MD [Primary Care Provider] - 1 Week Diet/Activity/Treatments Diet: Carb-consistent/Diabetic Visit Report/Discharge Packet Stand Alone Forms: Patient Portal/API, Stroke Signs & Symptoms Discharge Data Primary Care Provider: Radha Perez Discharges patient from system. Discharge Date/Time: 06/14/24 17:15
[2024-06-14] MEDS: SODIUM CHLORIDE 0.9% 1,000 ML 150 ML IV ×2 (10:21→13:41)
[2024-06-14 11:00] VITALS: BP 147/70; PULSE 62; RESP 18; TEMP 36.6; O2SAT 99
[2024-06-14] MEDS: ACETAMINOPHEN 325 MG TABLET 650 MG PO (14:29)
[2024-06-14 14:58] LABS: BUN Creatinine Ratio 14.3 (6-22); Blood Urea Nitrogen 13 mg/dL (9-20); Calcium 7.9 mg/dL (8.4-10.2); Carbon Dioxide 24 mmol/L (22-32); Chloride 100 mmol/L (98-107); Estimated Glomerular Filt Rate > 60 mL/min (>60); Glucose 105 mg/dL (80-110); HEMOLYSIS < 15 (0-50); Sodium 132 mmol/L (137-145)
--- NOTE | 2024-06-14 19:06 | PC.NURSE ---
Addendum entered by Kika Hong R.N. 06/14/24 19:14: pt escorted via w/ch to ED entrance to meet friend for ride home in private vehicle with all personal belongings. Original Note: Patient A&O x4, VSS, afebrile on RA. He is independent in the room. MD Perez at bedside this a.m. Evaluating patient and anticipating discharge this afternoon as sodium continues to improve. Patient c/o headache today only mildly improved with tylenol. He is cleared to discharge this evening. Repeat sodium was 132. He verbalizes understanding of medications and plan to follow up with MD Perez in x1 week. Continuous monitoring.
[2024-06-15 16:40] LABS: Osmolality Urine 417 mOsmol/kg (.)
== END 2024-06-14 17:15 | disposition home or self-care (01) | DRG 640 ==
LOC: ED 19:20 → AC 21:01
PROVIDERS: Admitting Provider Family Medicine; Emergency Provider Emergency Medicine; Family Provider Family Medicine; PCP Family Medicine; Referring Provider Emergency Medicine; Visit Provider Family Medicine
DX: E87.1 Hypo-osmolality and hyponatremia (principal); U07.1 COVID-19; E10.9 Type 1 diabetes mellitus without complications; E03.9 Hypothyroidism, unspecified; G40.909 Epilepsy, unspecified, not intractable, without status epilepticus
CPT/HCPCS: 0241U; 36415; 71046; 80048; 80053; 82962; 83735; 83935; 84300; 84403; 84439; 84443; 85025; 87040; 93010; 99284; J1650; J1815

== ENCOUNTER → 2024-07-09 09:13 | Outpatient (CLI) | payer MEDICARE, SELFPAY ==
[2024-06-12 21:13] VITALS: BMI 22.4
--- NOTE | 2024-07-09 09:14 | DI.RAD.S_ITS ---
PROCEDURE: XR CHEST 2V INDICATIONS: htn TECHNIQUE: 2 views of the chest were acquired. COMPARISON: [facility], , XR CHEST 2V, 06/12/2024, 15:09. FINDINGS: Surgical changes and devices: Left shoulder arthroplasty Lungs and pleura: Lungs are clear. No pleural effusions or pneumothorax. Mediastinum: Mediastinal contours are normal. Heart size is normal. Bones and chest wall: No suspicious bony abnormalities. Soft tissues appear unremarkable. IMPRESSION: No acute cardiopulmonary abnormality is seen. Approved by: Jacky Linder M.D. on 07/09/2024 at 22:13
[2024-07-09 09:55] LABS: Add Manual Diff / Slide Review NO; Basophils Absolute Auto 100 /uL (0-100); Basophils Percent Auto 1.4 % (0-2); Eosinophils Absolute Auto 700 /uL (0-450); Eosinophils Percent Auto 9.5 % (2-4); Hematocrit 41.8 % (41-53); Hemoglobin 13.9 g/dL (13.5-17.5); Lymphocytes Absolute Auto 1700 /uL (1100-4500); Lymphocytes Percent Auto 22.5 % (25-40); Mean Corpuscular HGB Conc 33.3 % (30-36); Mean Corpuscular Hemoglobin 31.3 PG (26-34); Monocytes Absolute Auto 900 /uL (0-900); Monocytes Percent Auto 12.5 % (3-14); Neutrophils Absolute Auto 4000 /uL (1500-7000); Neutrophils Percent Auto 54.1 % (50-75); Platelet Count 278 X10^3/uL (150-400); Red Blood Cell Count 4.45 X10^6/uL (4.5-5.9); Red Cell Distribution Width 14.1 % (11.6-14.8); White Blood Cell Count 7.4 X10^3/uL (4.5-11.0)
[2024-07-09 10:22] LABS: BUN Creatinine Ratio 16.4 (6-22); Blood Urea Nitrogen 19 mg/dL (9-20); Calcium 9.9 mg/dL (8.4-10.2); Carbon Dioxide 34 mmol/L (22-32); Chloride 100 mmol/L (98-107); Estimated Glomerular Filt Rate > 60 mL/min (>60); HEMOLYSIS < 15 (0-50); Potassium 3.8 mmol/L (3.4-5.1); Sodium 140 mmol/L (137-145)
[2024-07-09 10:29] LABS: Glucose 45 mg/dL (80-110)
[2024-07-09 10:46] LABS: TSH w/ Reflex to FT4 0.07 uIU/mL (0.47-4.68)
[2024-07-09 11:10] LABS: Free T4, Direct Thyroxine 1.24 ng/dL (0.78-2.19)
== END ==
PROVIDERS: Family Provider Family Medicine; PCP Family Medicine; Referring Provider Family Medicine; Visit Provider Family Medicine
DX: I95.9 Hypotension, unspecified (principal); E87.1 Hypo-osmolality and hyponatremia
CPT/HCPCS: 36415; 71046; 80048; 84439; 84443; 85025; 87040

== ENCOUNTER 2025-01-09 13:52 | Day surgery (SDC) | payer MEDICARE, SELFPAY ==
[2024-06-12 21:13] VITALS: BMI 22.4
[2025-01-04 14:26] VITALS: BMI 22.7
--- NOTE | 2025-01-08 17:52 | PM.PREOP ---
Pre-operative Note COVID-19 COVID-19 status: Not tested Interval Note History & Physical reviewed/Exam performed by Physician: Yes Changes to H&P: No H&P completed within 30 days and has changed as indicated here:: Fasting glucose is 140 ASA Class (for procedural sedation): II
--- NOTE | 2025-01-08 17:56 | PM.OP.1 ---
Operative Date/Time/Diagnoses Date of procedure: 01/09/25 Time of procedure: 15:15 Pre-op diagnosis: Bilateral dermatochalasis, bilateral ectropion inferior lid Post-op diagnosis: same Procedure & Clinicians Procedure: Preoperative diagnoses: 1. Bilateral upper lid dermatochalasis 2. Bilateral lower lid ectropion 3. Insulin-dependent diabetes mellitus 4. Sleep apnea 5. History pituitary cyst status post surgery 6. Recent trauma right lower lid from accidentally hitting a car door 7. Hypothyroidism 8. History of previous shoulder surgery 9. History of right right infeior orbital fracture with repair Postoperative diagnoses: 1. Bilateral upper lid dermatochalasis treated with blepharoplasty 2. Status post ectropion repair 3. Punctal malrotation with punctal stenosis. Procedure: Bilateral upper blepharoplasty for functional symptoms. Bilateral lower lid functional ectropion repair. Surgeon: Thao Leonard MD Complications: none Specimen: None Blood loss: Less than 3 mL Anesthesia: Local infiltration with monitored standby. Indications: Bilateral upper lids obstructing superior vision. Preoperative external photographs taken and loss of vision to within 2 mm of marginal light reflex. Functional surgery. Bilateral lower lid laxity with exposure symptoms and malrotated puncta. Patient presents with excessive irritation and tearing from exposure due to bilateral lower lid laxity malposition the of the lacrimal puncta which were also closed. The patient has failed conservative measures including lubrication and antibiotic ointment and desires surgery to improve these symptoms. He has sleep apnea which increases floppy lid syndrome of both upper and lower lid. He had recent trauma to right lower maxillary area without laceration of the lid margin. It is healing in safe to proceed to planned surgery. He also had previous right inferior blowout fracture repair with a plate placed. He currently does not have strabismus. Procedure: In the preoperative holding area the amount skin and subcutaneous tissue to be removed was marked with indelible ink. The contours were carefully checked for symmetry and planned procedure discussed with the patient. The patient was taken to the operating room. IV sedation was given. Proparacaine drops were placed in both eyes for comfort. Local infiltration of anesthetic 2.5 cc into each upper lid and lateral canthus bilaterally, consisting of 1% xylocaine with epinephrine, normal saline and 1 cc hyluronidase was placed. This was then supplemented with full strength 2% xylocaine with epinephrine, 0.5% bupivacaine, and 1 cc hyalurondase. The face was prepped in an open manner. Attention was placed to the right upper lid. Using the previous negro a number 15. Bard-Morgan blade was used to incise a skin muscle flap. The flap was lifted and removed. Cautery was applied as needed. Contouring of the muscle belly was also performed. Exploration of the nasal and preoperneurotic fat pads were performed removal and contouring with hemostat and scissors as well as cautery were performed. The lid was then closed with running and interrupted 6 0 Vicryl sutures. Extra local anesthetic of 1% xylocaine with epinephrine was placed multiple times as needed. Attention was placed to the right lower lid. A punctal dilator was used to enlarge the punctum. It was then probed to the nose. Tenotomy scissors were used to make a 3 snip procedure to enlarge the punctum permanently. . Attention was placed to the lateral canthus. A 15. Bard-Morgan blade was used to make an incision for 1 cm. The periosteum was exposed. Cautery was used as needed. The inferior canthal tendon was lysed with scissors. A tarsal strip was formed with clearance of the anterior and posterior lamella and any exposed lashes. Minimal shortening was performed. The strip was then transected with 5.0 Mersilene type suture which was placed double-armed through the periosteum and tied with multiple knots at the orbital rim. The outer tarsus and lid was then closed with 6 0 interrupted sutures. The procedure was repeated on the left side in identical fashion. There was minimal bleeding. The patient returned to the recovery room in good condition. Sutures will be removed in the office in approximately 10 days. Same procedure was repeated for the left upper lid and lower lid. The Betadine was removed. Maxitrol ointment was placed to suture line. He returned to recovery room in stable condition. Instructions for postoperative cold packs were reviewed. Thao Leonard MD. Same procedure as scheduled: Yes Surgeon: Thao Leonard Click Yes if Unassisted: Yes Anesthesia Type: MAC +/- Operative Notes Closure Type: primary Specimen(s): none sent Blood products transfused: none Complications: none Post-operative Condition: stable
[2025-01-09 14:30] VITALS: BP 133/81; PULSE 79; RESP 16; TEMP 36.4; O2SAT 99; BMI 22.7
[2025-01-09] MEDS: LACTATED RINGERS 1,000 ML 42 ML IV (14:44)
--- NOTE | 2025-01-09 15:10 | PM.PREOP ---
Pre-operative Note Interval Note History & Physical reviewed/Exam performed by Physician: Yes Changes to H&P: No H&P completed within 30 days and has changed as indicated here:: Fasting glucose 140 . Is on a continous monitor.
[2025-01-09] MEDS: LIDOCAINE 2% W/EPI 3 ML, BUPIVACAINE 0.5% (PF) 2 ML, HYALURONIDASE 150 UNIT INJ (15:50)
[2025-01-09] MEDS: LIDOCAINE 1% W/EPI 20ML 20 ML INJ ×2 (16:17→17:10)
[2025-01-09] MEDS: PROPARACAINE 0.5% OPHTH SOL 2 DROPS EYE-BOTH (16:17)
[2025-01-09] MEDS: NEOMYCIN/POLY/DEX OPHTH OINT 1 APPLIC EYE-BOTH (16:18)
[2025-01-09] MEDS: HYALURONIDASE 150 UNIT/ML VIAL (AMPHADASE) 300 UNIT INJ (16:21)
[2025-01-09 17:20] VITALS: BP 127/66; PULSE 89; RESP 15; TEMP 36.5; O2SAT 98
[2025-01-09 17:29] VITALS: BP 127/66; PULSE 87; RESP 15; TEMP 36.6; O2SAT 98
== END 2025-01-09 17:47 | disposition home or self-care (01) ==
PROVIDERS: Family Provider Family Medicine; PCP Family Medicine; Referring Provider Ophthalmology; Visit Provider Ophthalmology
PROC: (CPT 15823; principal; 2025-01-09 15:15)
PROC: (CPT 15823; 2025-01-09 15:15)
DX: H02.834 Dermatochalasis of left upper eyelid (principal); H02.831 Dermatochalasis of right upper eyelid; H02.105 Unspecified ectropion of left lower eyelid; H02.102 Unspecified ectropion of right lower eyelid; G40.909 Epilepsy, unspecified, not intractable, without status epilepticus; E11.9 Type 2 diabetes mellitus without complications; Z79.4 Long term (current) use of insulin; E03.9 Hypothyroidism, unspecified; G47.30 Sleep apnea, unspecified
CPT/HCPCS: 15823; 67917; J3470

== ENCOUNTER → 2025-10-23 11:26 | Outpatient (CLI) | payer MEDICARE, OTHER, SELFPAY ==
[2025-08-26 09:40] VITALS: BMI 22.4
[2025-10-23 12:36] LABS: Blood Urea Nitrogen 21 mg/dL (9-20); Calcium 9.3 mg/dL (8.4-10.2); Carbon Dioxide 30 mmol/L (22-32); Chloride 96 mmol/L (98-107); Estimated Glomerular Filt Rate > 60 mL/min (>60); Glucose 162 mg/dL (70-99); HEMOLYSIS < 15 (0-50); Potassium 4.3 mmol/L (3.4-5.1); Sodium 135 mmol/L (137-145)
== END ==
PROVIDERS: Family Provider Family Medicine; PCP Family Medicine; Referring Provider Internal Medicine Cardiovascular Disease; Visit Provider Internal Medicine Cardiovascular Disease
DX: I10 Essential (primary) hypertension (principal)
CPT/HCPCS: 36415; 80048